=== PATIENT | female | born 1970 | race Caucasian/White ===

== ENCOUNTER 2020-04-12 17:38 | Emergency (ER) | payer BC, MEDICARE, SELFPAY ==
--- NOTE | 2020-04-12 17:41 | ECG_ITS ---
Test Reason : CHEST PAIN Blood Pressure : / mmHG Vent. Rate : 069 BPM Atrial Rate : 069 BPM P-R Int : 144 ms QRS Dur : 096 ms QT Int : 388 ms P-R-T Axes : 042 047 032 degrees QTc Int : 415 ms Normal sinus rhythm Normal ECG When compared with ECG of 13-OCT-2015 00:48, No significant change was found Referred By: Generic ED Physician Electronically Signed By:KULDIP PEDERSEN MD
[2020-04-12 18:00] VITALS: BP 133/65; PULSE 65; RESP 15; O2SAT 98
[2020-04-12 18:04] VITALS: PULSE 64; RESP 10; TEMP 37.1; BMI 28.3
--- NOTE | 2020-04-12 18:07 | XR_ITS ---
EXAMINATION: XR CHEST CLINICAL INFORMATION: Chest pain. COMPARISON: Chest x-ray 10/13/2015 TECHNIQUE: 2 views of the chest were obtained. FINDINGS: No significant abnormality is noted involving the heart, lungs, mediastinum, bony thorax or soft tissues. XR/XR chest 2V IMPRESSION: Unremarkable examination.
--- NOTE | 2020-04-12 18:10 | ED_ITS ---
HPI - Chest Pain General Chief Complaint: Chest Pain Stated Complaint: chest pain Time Seen by Provider: 04/12/20 17:54 History of Present Illness HPI narrative: 50-year-old female who presents to emergency department for evaluation of chest pain. The patient states she had gradual onset of chest pain approximately 1 week prior. She states that the pain came on while she was reading. She points to her sternum when asked to localize the chest pain. She states the pain is a constant, pressure-like pain which is 8/10 at its worst. She states that she has associated numbness in both hands. She also feels short of breath with exertion. She has also noted a left calf pain which she states started 1 week prior. The pain is a constant, cramping pain. She denies any swelling or lower extremities. She does not take any supplemental estrogens. She has not gone on any long trips. She states that she gets occasional headaches and occasionally feels lightheaded. She was concerned that the pain was persisting, therefore she came to the emergency department for an evaluation. Related Data Home Medications Medication Instructions Recorded Confirmed Adderall 04/12/20 Allergies Allergy/AdvReac Type Severity Reaction Status Date / Time bupropion [From Wellbutrin] Allergy Unknown hair loss Verified 03/14/20 13:06 hydromorphone [Dilaudid] AdvReac Unknown stomach Verified 03/14/20 13:06 upset Review of Systems Review of Systems: Yes all other systems are reviewed and are negative Constitutional: Constitutional: Reports as per HPI Eyes: Eyes: Reports as per HPI ENT: Reports as per HPI Cardiovascular: Cardiovascular: Reports as per HPI Respiratory: Respiratory: Reports as per HPI Gastrointestinal: Gastrointestinal: Reports as per HPI Genitourinary: Genitourinary: Reports as per HPI Musculoskeletal: Musculoskeletal: Reports as per HPI Integumentary/Breasts: Skin/Breast: Reports as per HPI Neurologic: Reports as per HPI and Reports Abnormal speech present Psychiatric: Psychiatric: Reports as per HPI Allergic/Immunologic: Allergic/Immunologic: Reports as per HPI PMFSH Past Medical History PMF Narrative: The patient denies tobacco use, she occasionally drinks alcohol, she denies drug use. Surgical History History of section History of hysteroscopy History of tonsillectomy History of tubal ligation Family History Family History Father No problems noted. Mother Heart disease Diabetes Hypertension Hyperlipidemia Maternal Aunt Stroke Family/Other CAD (coronary artery disease) Social History Social History Smoked in Last 30 Days: No Use of substances other than those prescribed or required for medical reasons: No Advance Directives: No Advance Directives Information Provided: Yes Physical Exam Vital Signs: Vital Signs: Last Vital Signs Temp 98.8 F 04/12/20 18:04 Pulse 61 04/12/20 20:09 Resp 11 L 04/12/20 20:09 BP 129/78 04/12/20 20:09 Pulse Ox 100 04/12/20 20:09 Body Mass Index 28.3 Const: General: cooperative, no acute distress, alert and awake Orientation/consciousness: oriented to person and oriented to place Limitations: no limitations HENMT: Head: Yes normal to inspection, Yes normocephalic and Yes atraumatic Ears: external ears normal General nose exam: Normal external nose present Face and sinus: Yes normal facial exam Mouth: Normal oral and palatal mucosa present Throat: Yes posterior oropharynx normal Eyes: General: appearance normal, both eyes and all related structures Periorbital: periorbital findings normal Eyelids: Yes eyelids normal Conjunctivae: conjunctivae normal Sclerae: sclerae normal Corneas: corneas normal Pupils: Equal, round and reactive pupils present Direct Ophthalmoscopy: normal light reflex Neck: Neck: Yes normal visual inspection and Yes supple Lymphatic: no lymphadenopathy noted Chest: Chest palpation & inspection: normal inspection of the chest and tenderness (Mid sternum and bilateral costochondral joints) Resp: Effort & Inspection: normal respiratory effort, abnormal respiratory pattern, no audible wheezes and no respiratory distress Auscultation: clear to auscultation bilaterally, no crackles, no rales, no rhonchi and no wheezes Cardio: Rate: regular rate Rhythm: regular rhythm Heart sounds: S1 normal heart sound present, S2 normal heart sound present and no murmurs GI: Inspection: No distended Palpation (GI): Soft to palpation, nontender, no guarding and No hepatosplenomegaly present Auscultation: normal bowel sounds : General: Yes no CVA tenderness Back/Spine/Pelvis: Back: no CVA tenderness Skin: General skin exam: no rashes or lesions noted Lesions: no lesions Rashes: no rashes Wounds: no wounds Neuro: General: oriented to person and oriented to place Cranial nerves: Ye s CN's II-XII intact bilaterally and Yes Equal, round and reactive pupils present Cognition (Neuro): normal cognition Speech: Abnormal speech present Motor exam (neuro): 5/5 motor strength present throughout Extrem: General: Yes normal to inspection, Yes full ROM, Yes no pedal edema and Yes no calf tenderness Psych: Appearance: grossly normal Mental Status: mental status grossly normal Speech and movement: Clear speech present Affect: normal affect Thought process: Normal thought process present Course Course Course Narrative: 50-year-old female who presents to the emergency department for evaluation of chest pain x1 week. The chest pain came on gradually and is located in the center of her chest. She does have chest wall tenderness on examination. She is also complaining of left calf pain with no significant findings on her left calf. Secondary to her leg pain/swelling. I did order a cardiac workup on this patient including a D-dimer and chest x-ray. 2022: The patient's laboratory evaluation was normal including a non elevated troponin and non elevated D-dimer. Chest x-ray was normal. The patient did get improvement with her IV Toradol. At this time, I suspect that her pain is secondary to costochondritis I did discuss this with her. She was advised to take ibuprofen 600 mg 3 times a day. She is advised follow up with the doctor in 2 days and return to the emergency department if her symptoms get worse or she develops any new symptoms that are concerning to her. MDM - Chest Pain Lab Data Result diagrams: 04/12/20 18:17 04/12/20 18:17 Labs: Lab Results 04/12/20 04/12/20 04/12/20 Range/Units 18:17 18:17 18:17 WBC 6.6 (4.8-10.8) X10*3/uL RBC 4.33 (4.20-5.50) X10*6/uL Hgb 12.7 (12.0-16.0) g/dl Hct 38.9 (37-47) % MCV 89.8 (80-98) fL MCH 29.3 (27.0-33.0) pg MCHC 32.6 (31.0-35.0) g/dl RDW 12.3 (11.0-16.0) % Plt Count 224 (160-400) X10*3/uL MPV 9.8 (9.4-12.3) fL Immature Gran % (Auto) 0.2 (0.0-0.4) % Neut % (Auto) 40.9 L (45-73) % Lymph % (Auto) 50.8 H (20-40) % [place] % (Auto) 5.3 (2-11) % Eos % (Auto) 2.3 (0-4) % Baso % (Auto) 0.5 (0-2) % Lymph # (Auto) 3.4 (1.2-4.9) X10*3/uL [place] # (Auto) 0.4 (0.1-1.2) X10*3/uL Eos # (Auto) 0.2 (0.0-0.4) X10*3/uL Baso # (Auto) 0.0 (0.0-0.2) X10*3/uL Abs Immat Gran (auto) 0.01 (0.00-0.03) X10*3/uL Absolute Neuts (auto) 2.7 (2.0-8.3) X10*3/uL Absolute Nucleated RBC 0.000 (0.0-0.012) X10*3/uL Nucleated RBC % (auto) 0.0 (0.0-0.2) /100WBC D-Dimer < 200 NG/ML Sodium 140 (135-145) mmol/L Potassium 4.1 (3.3-5.1) mmol/l Chloride 107 (96-108) mmol/L Carbon Dioxide 27 (22-29) mmol/L Anion Gap 10 L (12-20) BUN 10 (9-16) mg/dL Creatinine 0.76 (0.5-1.4) mg/dL Estim Creat Clear Calc 86.4 Estimated GFR > 60 Random Glucose 63 (60-115) mg/dL Calcium 8.5 (8.4-10.2) mg/dL Total Bilirubin 0.5 (0.0-1.0) mg/dL AST 14 (5-31) U/L ALT 16 (0-31) U/L Alkaline Phosphatase 59 (39-117) U/L Troponin I High Sens (<3.5-17.0) ng/L Total Protein 6.8 (6.5-8.0) g/dL Albumin 4.1 (3.5-5.0) g/dL Urine Test (NEGATIVE) 04/12/20 04/12/20 Range/Units 18:17 19:35 WBC (4.8-10.8) X10*3/uL RBC (4.20-5.50) X10*6/uL Hgb (12.0-16.0) g/dl Hct (37-47) % MCV (80-98) fL MCH (27.0-33.0) pg MCHC (31.0-35.0) g/dl RDW (11.0-16.0) % Plt Count (160-400) X10*3/uL MPV (9.4-12.3) fL Immature Gran % (Auto) (0.0-0.4) % Neut % (Auto) (45-73) % Lymph % (Auto) (20-40) % [place] % (Auto) (2-11) % Eos % (Auto) (0-4) % Baso % (Auto) (0-2) % Lymph # (Auto) (1.2-4.9) X10*3/uL [place] # (Auto) (0.1-1.2) X10*3/uL Eos # (Auto) (0.0-0.4) X10*3/uL Baso # (Auto) (0.0-0.2) X10*3/uL Abs Immat Gran (auto) (0.00-0.03) X10*3/uL Absolute Neuts (auto) (2.0-8.3) X10*3/uL Absolute Nucleated RBC (0.0-0.012) X10*3/uL Nucleated RBC % (auto) (0.0-0.2) /100WBC D-Dimer NG/ML Sodium (135-145) mmol/L Potassium (3.3-5.1) mmol/l Chloride (96-108) mmol/L Carbon Dioxide (22-29) mmol/L Anion Gap (12-20) BUN (9-16) mg/dL Creatinine (0.5-1.4) mg/dL Estim Creat Clear Calc Estimated GFR Random Glucose (60-115) mg/dL Calcium (8.4-10.2) mg/dL Total Bilirubin (0.0-1.0) mg/dL AST (5-31) U/L ALT (0-31) U/L Alkaline Phosphatase (39-117) U/L Troponin I High Sens < 3.5 (<3.5-17.0) ng/L Total Protein (6.5-8.0) g/dL Albumin (3.5-5.0) g/dL Urine Test NEGATIVE (NEGATIVE) ECG Data ECG #1: Attestation: I personally reviewed and interpreted this ECG as follows: ECG interpretation date: 04/12/20 ECG interpretation time: 17:45 Interpretation: Normal sinus rhythm rate of 69, normal ME, QRS and QTC intervals, inverted Q-wave in V1, no ST segment elevation or depression, no old EKG for comparison. No evidence for cardiac ischemia or injury. Discharge Plan Discharge Clinical Impression: Acute costochondritis Patient Disposition: Home, Self-Care Instructions: Costochondritis (ED) Additional Instructions: Your laboratory evaluation was normal. Your EKG was normal. Your chest x-ray was normal. At this time, I believe that your pain is caused by inflammation of the joints of your chest (costochondritis). Take ibuprofen 200 mg pills, 3 pills every 6 hours as needed for pain. Follow-up with your doctor in 2 days. Please return to the emergency department if your symptoms get worse or if you develop any symptoms that are concerning to you. Prescriptions: No Action Adderall RF: 0
[2020-04-12] MEDS: Ketorolac Tromethamine 30 MG/ML VIAL IVPUSH (18:23)
[2020-04-12 18:25] LABS: MANUAL DIFF FLAG NO
[2020-04-12 18:38] LABS: Basophils Percent Auto 0.5 % (0-2); Eosinophils Absolute Auto 0.2 X10*3/uL (0.0-0.4); Eosinophils Percent Auto 2.3 % (0-4); Hematocrit 38.9 % (37-47); Hemoglobin 12.7 g/dl (12.0-16.0); Imm Gran Abs Auto 0.01 X10*3/uL (0.00-0.03); Imm Gran Pct Auto 0.2 % (0.0-0.4); Lymphocytes Absolute Auto 3.4 X10*3/uL (1.2-4.9); Lymphocytes Percent Auto 50.8 % (20-40); Mean Corpuscular HGB Conc 32.6 g/dl (31.0-35.0); Mean Corpuscular Hemoglobin 29.3 pg (27.0-33.0); Mean Corpuscular Volume 89.8 fL (80-98); Mean Platelet Volume 9.8 fL (9.4-12.3); Monocytes Absolute Auto 0.4 X10*3/uL (0.1-1.2); Monocytes Percent Auto 5.3 % (2-11); Neutrophils Absolute Auto 2.7 X10*3/uL (2.0-8.3); Neutrophils Percent Auto 40.9 % (45-73); Platelet Count 224 X10*3/uL (160-400); Red Blood Count 4.33 X10*6/uL (4.20-5.50); Red Cell Distribution Width 12.3 % (11.0-16.0); White Blood Count 6.6 X10*3/uL (4.8-10.8)
[2020-04-12 18:53] LABS: D Dimer < 200 NG/ML
[2020-04-12 18:54] LABS: Alanine Aminotransferase 16 U/L (0-31); Albumin Level 4.1 g/dL (3.5-5.0); Alkaline Phosphatase 59 U/L (39-117); Anion Gap 10 (12-20); Aspartate Amino Transferase 14 U/L (5-31); Bilirubin Total 0.5 mg/dL (0.0-1.0); Blood Urea Nitrogen 10 mg/dL (9-16); Calcium 8.5 mg/dL (8.4-10.2); Carbon Dioxide 27 mmol/L (22-29); Chloride 107 mmol/L (96-108); Creatinine Clr Calc Pharmacy 86.4; Estimated Glomerular Filt Rate > 60; Glucose Random 63 mg/dL (60-115); Potassium 4.1 mmol/l (3.3-5.1); Sodium 140 mmol/L (135-145); Total Protein 6.8 g/dL (6.5-8.0)
[2020-04-12 18:59] LABS: Troponin-I High Sensitivity < 3.5 ng/L (<3.5-17.0)
[2020-04-12 20:02] LABS: UPreg QC Valid YES; Urine Pregnancy NEGATIVE (NEGATIVE)
[2020-04-12 20:09] VITALS: BP 129/78; PULSE 61; RESP 11; O2SAT 100
== END 2020-04-12 20:47 | disposition home or self-care (01) ==
PROVIDERS: Emergency Provider Emergency Medicine Emergency Medical Services
DX: M94.0 Chondrocostal junction syndrome [Tietze] (principal); R07.9 Chest pain, unspecified; R51.9 Headache, unspecified; Z79.899 Other long term (current) drug therapy
CPT/HCPCS: 36415; 71046; 80053; 81025; 84484; 85025; 85379; 93005; 96374; 99284; J1885

== ENCOUNTER 2020-09-08 07:21 | Outpatient (REF) | payer BC, MEDICARE, SELFPAY ==
--- NOTE | ~2020-09-08 | CT_ITS ---
EXAMINATION: CT HEAD WITHOUT CONTRAST CLINICAL INFORMATION: Headache and left-sided numbness COMPARISON: Previous head CT June 2014 TECHNIQUE: Contiguous axial imaging was performed from the skull base to vertex without intravenous administration of contrast. This CT examination was performed using dose optimization techniques as appropriate, variously including the following: *Automated exposure control *Adjustment of mA and/or kV according to patient size (this includes techniques or standardized protocols for targeted exams where dose is matched to indication/reason for exam; i.e. extremities or head) *Use of iterative reconstruction technique DLP: 719 mGy-cm FINDINGS: There is no evidence of acute intracranial hemorrhage or territorial infarction. No abnormal mass effect or midline shift is seen. Partida to white matter differentiation is well preserved. No extra-axial fluid collections are identified. The ventricles are normal in size. There is no abnormal attenuation within the brain parenchyma. The osseous structures and soft tissues are normal. The mastoid air cells and visualized portions of the paranasal sinuses are well aerated. CT/CT head/brain wo con IMPRESSION: Unremarkable exam.
== END 2020-09-08 07:22 | disposition home or self-care (01) ==
LOC: HO.CT 07:21
PROVIDERS: PCP Internal Medicine; Visit Provider Internal Medicine
DX: R51.9 Headache, unspecified (principal)
CPT/HCPCS: 70450

== ENCOUNTER → 2021-04-30 08:55 | Outpatient (REF) | payer BC, SELFPAY ==
--- NOTE | 2021-04-30 08:59 | CA_ITS ---
Acquisition Time: 2021-04-30 08:59:25 Total Exercise Time: 00:07:21 Test Indications: CP Medications: SEE CHART Protocol: KEVEN Max HR: 166 BPM 97% of Pred: 171 BPM Max BP: 170/076 mmHG Max Work Load: 9.0 METS Exercise stress test with exercise 7 min 21 sec of Keven protocol, without anginal symptoms, with isolated PACs and atrial cuplets, with normotensive response to exercise, without EKG changes meeting criteria for ischemia. In recovery there is downsloping ST lead III - nonspecific. Test reviewed with Dr Tellez. Referred By: Abran Hidalgo Overread By: CARROLL ORTIZ
[2021-04-30 11:01] LABS: Alanine Aminotransferase 16 U/L (0-31); Albumin Level 4.5 g/dL (3.5-5.0); Alkaline Phosphatase 79 U/L (39-117); Anion Gap 12 (12-20); Aspartate Amino Transferase 17 U/L (5-31); Bilirubin Direct < 0.2 mg/dL (0.0-0.5); Bilirubin Total 0.3 mg/dL (0.0-1.0); Blood Urea Nitrogen 11 mg/dL (9-16); C Reactive Protein 0.12 mg/dL (< or = 0.50); Calcium 9.7 mg/dL (8.4-10.2); Carbon Dioxide 25 mmol/L (22-29); Chloride 106 mmol/L (96-108); Estimated Glomerular Filt Rate > 60; Glucose Random 77 mg/dL (60-115); Potassium 4.3 mmol/L (3.3-5.1); Sodium 139 mmol/L (135-145); Total Protein 7.5 g/dL (6.5-8.0)
[2021-04-30 11:09] LABS: Rheumatoid Factor 16.2 IU/mL (<15.0)
[2021-04-30 11:27] LABS: Erythrocyte Sedimentation Rate 7 MM/HR (0-20)
[2021-05-03 00:20] LABS: Cyclic Citrullinated Peptide <16 UNITS
== END ==
LOC: HO.CARD 08:55
PROVIDERS: Visit Provider Physician Assistant
DX: R07.89 Other chest pain (principal); M25.50 Pain in unspecified joint
CPT/HCPCS: 36415; 80048; 80076; 85652; 86140; 86200; 86431; 93017

== ENCOUNTER 2021-05-03 13:33 | Outpatient (REF) | payer BC, SELFPAY ==
--- NOTE | ~2021-05-03 | US_ITS ---
EXAMINATION: US VENOUS ULTRASOUND WITH DOPPLER LOWER EXTREMITY, BILATERAL CLINICAL INFORMATION: Leg pain. Assess for occult DVT. COMPARISON: None TECHNIQUE: Ultrasound of the deep veins is performed from the hip to the calf with compression sonography and color and pulse Doppler assessment. Spectral analysis with color-flow imaging is performed. FINDINGS: RIGHT: There is normal venous compression and respiratory variation and augmented flow. The visualized common femoral vein, superficial femoral vein, profunda femoral vein, popliteal vein, and the trifurcation region shows no evidence of deep venous thrombosis. No popliteal fossa cyst. LEFT: There is normal venous compression and respiratory variation and augmented flow. The visualized common femoral vein, superficial femoral vein, profunda femoral vein, popliteal vein, and the trifurcation region shows no evidence of deep venous thrombosis. No popliteal fossa cyst. US/US venous duplex LE BI IMPRESSION: No DVT demonstrated in the bilateral lower extremity.
--- NOTE | ~2021-05-03 | US_ITS ---
EXAMINATION: US NONINVASIVE ASSESSMENT OF THE BILATERAL LOWER EXTREMITIES WITH ARTERIAL DUPLEX CLINICAL INFORMATION: Peripheral vascular disease COMPARISON: Lower extremity arterial duplex ultrasound on 06/11/2018 TECHNIQUE: Duplex Doppler techniques with waveform analysis and measurement of velocities in the common femoral, profunda femoris, superficial femoral, popliteal and tibial arteries were performed. The study was performed only at rest. FINDINGS: BILATERAL LOWER EXTREMITY DUPLEX ULTRASOUND: RIGHT LEG: Common femoral artery: 127 cm/s Diastolic flow reversal: Yes Profunda femoris artery: 143 cm/s. Diastolic flow reversal: Yes Superficial femoral artery (proximal): 111 cm/s Diastolic flow reversal: Yes Superficial femoral artery (mid): 139 cm/s. Diastolic flow reversal: Yes Superficial femoral artery (distal): 104 cm/s. Diastolic flow reversal: Yes Popliteal artery: 76 cm/s. Diastolic flow reversal: Yes Posterior tibial artery: 86 cm/s. Diastolic flow reversal: Yes LEFT LEG: Common femoral artery: 176 cm/s. Diastolic flow reversal: Yes Profunda femoris artery: 120 cm/s. Diastolic flow reversal: Yes Superficial femoral artery (proximal): 111 cm/s. Diastolic flow reversal: Yes Superficial femoral artery (mid): 119 cm/s. Diastolic flow reversal: Yes Superficial femoral artery (distal): 83 cm/s. Diastolic flow reversal: Yes Popliteal artery: 74 cm/s Diastolic flow reversal: Yes Posterior tibial artery: 90 cm/s Diastolic flow reversal: Yes US/US arterial duplex LE IMPRESSION: RIGHT LEG: No hemodynamically significant stenosis in the right lower extremity. LEFT LEG: No hemodynamically significant stenosis in the left lower extremity.
== END 2021-05-03 13:34 | disposition home or self-care (01) ==
LOC: HO.US 13:33
PROVIDERS: PCP Physician Assistant; Visit Provider Physician Assistant
DX: M79.604 Pain in right leg (principal); M79.605 Pain in left leg; I73.9 Peripheral vascular disease, unspecified
CPT/HCPCS: 93925; 93970

== ENCOUNTER 2021-08-29 13:55 | Outpatient (REF) | payer BC, SELFPAY ==
--- NOTE | ~2021-08-29 | MM_ITS ---
EXAMINATION: MM DIAGNOSTIC DIGITAL BREAST TOMOSYNTHESIS, BILATERAL US DIAGNOSTIC ULTRASOUND BREAST, BILATERAL CLINICAL INFORMATION: Palpable fullness on right, 2:00-3:00. Bilateral breast tenderness lateral aspect. No known family history breast cancer. The lifetime risk of breast cancer based on the Tyrer-Cuzick Model is 8%. COMPARISON: Mammography: 10/28/2016 TECHNIQUE: Digital breast tomosynthesis is performed in both the craniocaudal and mediolateral oblique views along with computer-aided detection (CAD). Synthesized 2D images are generated from the tomosynthesis. Additional magnification left CC x2 and magnification left ML views are provided. Ultrasound left breast is targeted 1:00 through 5:00 position and right breast is targeted 11:00 through 6:00 position. Grayscale imaging and color Doppler are performed without and with harmonics. FINDINGS: The breasts are heterogeneously dense, which may obscure small masses (ACR BI-RADS breast composition Category c). Parenchymal pattern is similar to prior exam and there is no interval mass or architectural abnormality. No skin thickening or coarsening of the Tyrone's ligament. The axilla are unremarkable. Skin contours are smooth. Left breast has new grouped calcifications mid upper outer quadrant 4-8 number which vary in size. No abnormal calcifications on right. Ultrasound bilateral breasts show no cystic or solid mass or architectural abnormality. No focal duct ectasia. No skin thickening or edema tracking in soft tissue planes. Results are discussed with the patient at time of visit. There is no imaging correlate for patient's palpable concern on right or for the mastodynia. Management options for left breast calcifications were discussed. Patient prefers stereotactic sampling. Preliminary results and recommendations called to office ([facility]) for LASHAY Sims on 08/29/2021. MM/MM tomosynthesis diagnostic BI IMPRESSION: Left: -Punctate grouped calcifications mid upper outer quadrant. -No imaging correlate for mastodynia. Unremarkable ultrasound. Right: -No mammographic evidence of malignancy or inflammatory changes. -Unremarkable ultrasound. ASSESSMENT: BI-RADS 4: Suspicious (subcategory 4A: Low suspicion for malignancy) RECOMMENDATION: 1. Stereotactic sampling left breast calcifications. 2. Patient's mastodynia and right palpable area should be managed based on the clinical impression. If clinically indicated, further evaluation may be considered with surgical consult. Decision to proceed with biopsy should be based on clinical grounds and degree of clinical concern. This patient's information was entered into a reminder system with a target due date for their next mammogram.
== END 2021-08-29 13:56 | disposition home or self-care (01) ==
LOC: HO.MAMMO 13:55
PROVIDERS: PCP Physician Assistant; Visit Provider Nurse Practitioner Family
DX: N64.4 Mastodynia (principal); N63.15 Unspecified lump in the right breast, overlapping quadrants
CPT/HCPCS: 76642; 77062; 77066

== ENCOUNTER 2021-09-03 08:51 | Outpatient (REF) | payer BC, SELFPAY ==
--- NOTE | ~2021-09-03 | MM_ITS ---
EXAMINATION: STEREOTACTIC TOMOSYNTHESIS-GUIDED VACUUM-ASSISTED BREAST BIOPSY, LEFT SPECIMEN RADIOGRAPH, LEFT POST PROCEDURE DIGITAL MAMMOGRAM, LEFT CLINICAL INFORMATION: Punctate grouped calcifications mid upper outer left breast for tissue sampling. COMPARISON: Mammography 08/29/2021, 10/28/2016. TECHNIQUE/PROCEDURE: Informed consent was obtained from the patient after discussion of the benefits, risks, and alternatives to biopsy today. Patient appeared to understand. Gave opportunity for questions. Patient signed consent form. BIOPSY TABLE: [employer] Affirm Prone Biopsy System. LESION: Punctate grouped calcifications mid upper outer left breast. LOCAL ANESTHESIA: 10 mL carbonated 1% lidocaine; 10 mL 1% lidocaine with epinephrine. DERMATOTOMY: Single skin evita dermatotomy performed. NEEDLE: [employer] Eviva 9-gauge vacuum assisted core biopsy device. APPROACH: craniocaudal. TARGETING: Combination of digital breast tomosynthesis and stereotactic digital mammography used for targeting. CORES: 7. CLIP: [employer] SecurMark Cylinder-shaped marker. SPECIMEN RADIOGRAPH: Specimen radiograph is taken in separate room using digital mammography. The index calcifications are in the excised cores. There are over 12 calcifications in the cores. POST PROCEDURE UNILATERAL DIGITAL MAMMOGRAM: The post biopsy mammogram is performed in separate room using separate digital mammography equipment from the biopsy procedure. CC and ML views are obtained. The breasts are heterogeneously dense, which may obscure small masses (breast composition category: c). The clip marker is in position. The calcifications are markedly decreased at the biopsy site and no longer clearly visualized. No gross hematoma. The patient tolerated the procedure well. No immediate complications. Home instructions reviewed with the patient. Final pathology results are pending. MM/MM stereotactic biopsy LT IMPRESSION: 1. Digital tomosynthesis-guided core biopsy left breast with clip placement. 2. Specimen radiograph taken and post procedure mammogram. There is satisfactory positioning of the biopsy clip. 3. Final pathology results pending. An addendum report will be issued.
[2021-09-03] MEDS: Lidocaine HCl 1 % 20 ML VIAL 10 ML SUBCUT (10:09)
[2021-09-03] MEDS: Sodium Bicarbonate 8.4% 50 MEQ/50 ML VIAL SUBCUT (10:12)
== END 2021-09-03 08:52 | disposition home or self-care (01) ==
LOC: HO.MAMMO 08:51
PROVIDERS: PCP Physician Assistant; Visit Provider Surgery
DX: R92.1 Mammographic calcification found on diagnostic imaging of breast (principal)
CPT/HCPCS: 19081; 88305; A4648

== ENCOUNTER → 2021-09-10 11:02 | Outpatient (BNVA) | payer BC, SELFPAY | PROVIDERS: PCP Physician Assistant; Referring Provider Physician Assistant; Visit Provider Surgery | DX: R92.1 Mammographic calcification found on diagnostic imaging of breast (principal) ==

== ENCOUNTER 2021-10-11 03:24 | Emergency (ER) | payer BC, SELFPAY ==
--- NOTE | 2021-10-11 | ECG_ITS ---
Test Reason : CHEST PAIN Blood Pressure : / mmHG Vent. Rate : 068 BPM Atrial Rate : 068 BPM P-R Int : 152 ms QRS Dur : 090 ms QT Int : 384 ms P-R-T Axes : 053 054 043 degrees QTc Int : 408 ms Normal sinus rhythm Normal ECG When compared with ECG of 12-APR-2020 17:45, No significant change was found Referred By: Generic ED Physician Electronically Signed By:KULDIP PEDERSEN MD
--- NOTE | ~2021-10-11 | XR_ITS ---
EXAMINATION: XR CHEST CLINICAL INFORMATION: Shortness of breath COMPARISON: 04/12/2020 TECHNIQUE: Frontal view of the chest was obtained. FINDINGS: The lungs are clear with no focal consolidation. No evidence of pneumothorax, pulmonary edema, or pleural effusions. The cardiomediastinal silhouette is unremarkable. No acute osseous findings. XR/XR chest 1V IMPRESSION: No acute cardiopulmonary findings.
[2021-10-11 03:31] VITALS: BP 163/53; PULSE 72; RESP 18; TEMP 37; O2SAT 97; BMI 30.1
[2021-10-11 03:50] LABS: MANUAL DIFF FLAG NO
[2021-10-11 03:51] LABS: Basophils Percent Auto 0.2 % (0-2); Eosinophils Percent Auto 0.2 % (0-4); Hemoglobin 12.3 g/dl (12.0-16.0); Imm Gran Abs Auto 0.01 X10*3/uL (0.00-0.03); Imm Gran Pct Auto 0.2 % (0.0-0.4); Lymphocytes Absolute Auto 1.5 X10*3/uL (1.2-4.9); Lymphocytes Percent Auto 29.6 % (20-40); Mean Corpuscular HGB Conc 33.2 g/dl (31.0-35.0); Mean Corpuscular Hemoglobin 28.9 pg (27.0-33.0); Mean Corpuscular Volume 87.1 fL (80.0-98.0); Monocytes Absolute Auto 0.5 X10*3/uL (0.1-1.2); Monocytes Percent Auto 9.4 % (2-11); Neutrophils Percent Auto 60.4 % (45-73); Platelet Count 166 X10*3/uL (160-400); Red Blood Count 4.25 X10*6/uL (4.20-5.50); Red Cell Distribution Width 13.2 % (11.0-16.0)
[2021-10-11 03:59] LABS: D Dimer High Sensitivity < 150 NG/ML
[2021-10-11 04:07] LABS: Alanine Aminotransferase 20 U/L (0-31); Albumin Level 3.8 g/dL (3.5-5.0); Alkaline Phosphatase 65 U/L (39-117); Anion Gap 13 (12-20); Aspartate Amino Transferase 17 U/L (5-31); Bilirubin Total 0.2 mg/dL (0.0-1.0); Blood Urea Nitrogen 11 mg/dL (9-16); Calcium 9.1 mg/dL (8.4-10.2); Carbon Dioxide 22 mmol/L (22-29); Chloride 106 mmol/L (96-108); Creatinine Clr Calc Pharmacy 89.2; Estimated Glomerular Filt Rate > 60; Glucose Random 86 mg/dL (60-115); Potassium 3.7 mmol/L (3.3-5.1); Sodium 137 mmol/L (135-145); Total Protein 6.4 g/dL (6.5-8.0)
[2021-10-11 04:12] LABS: Troponin-I High Sensitivity < 3.5 ng/L (<3.5-17.0)
--- NOTE | 2021-10-11 04:32 | ED_ITS ---
HPI - Chest Pain General Chief Complaint: Chest Pain Stated Complaint: Sob/Cough/Chest burning Time Seen by Provider: 10/11/21 04:32 Source: patient Mode of arrival: ambulatory Limitations: no limitations History of Present Illness HPI narrative: 51-year-old female came in for evaluation of shortness of breath and chest pain. Patient's symptoms started 3 days ago with fever of 100.7. Then patient started to have burning sensation in her chest with difficulty breathing. Patient with known history of asthma and pneumonia, patient feels similar to when she had pneumonia. Patient has been coughing with white sputum. No recent travel, no lower extremity swelling, no history of PE or DVT. Patient with known history of asthma. Related Data Home Medications Medication Instructions Recorded Confirmed cholecalciferol (vitamin D3) 50 50 mcg PO DAILY 08/15/21 09/03/21 mcg (2,000 unit) capsule Previous Rx's Medication Instructions Recorded albuterol sulfate 90 mcg/actuation 2 puff INHALATION Q4-6H PRN #8.5 g 01/12/21 aerosol inhaler fluticasone 250 mcg-salmeterol 50 1 inh INHALATION BID 30 Days #60 ea 01/16/21 mcg/dose blistr powdr for inhalation (Advair Diskus) budesonide-formoterol HFA 80 2 puff INHALATION BID 30 Days 01/22/21 mcg-4.5 mcg/actuation aerosol #10.2 g inhaler (Symbicort) diclofenac sodium 75 mg 75 mg PO BID PRN 15 Days #30 tab 04/12/21 tablet,delayed release Adderall XR 20 mg capsule,extended 20 mg PO DAILY 28 Days #28 cap NS 09/19/21 release (dextroamphetamine-amphetamine) lorazepam 0.5 mg tablet 0.5 mg PO BEDTIME PRN 7 Days #7 tab 10/09/21 albuterol sulfate 2.5 mg (3 mL) INHALATION Q4-6H PRN 10/11/21 #90 ml prednisone 20 mg tablet 20 mg PO BID #8 tab 10/11/21 Allergies Allergy/AdvReac Type Severity Reaction Status Date / Time bupropion [From Wellbutrin] Allergy Unknown hair loss Verified 09/10/21 11:09 hydromorphone [Dilaudid] AdvReac Unknown stomach Verified 09/10/21 11:09 upset Review of Systems Review of Systems: All other systems are reviewed and are negative Constitutional: Reports as per HPI and Reports no additional constitutional complaints Eyes: Reports as per HPI and Reports no additional eye complaints Reports system reviewed and no additional complaints, except as documented Cardiovascular: Reports as per HPI and Reports no additional cardiovascular complaints Respiratory: Reports as per HPI and Reports no additional respiratory complaints Gastrointestinal: Reports as per HPI and Reports no additional gastrointestinal complaints Genitourinary: Reports no additional female genitourinary complaints Musculoskeletal: Reports no additional musculoskeletal complaints Skin/Breast: Reports system reviewed and no additional complaints, except as docu Psychiatric: Reports no additional psychiatric complaints Endocrine: Reports no additional endocrine complaints Hematologic/Lymphatic: Reports no additional hematologic/lymphatic complaints Allergic/Immunologic: Reports no additional allergic/immunologic complaints Reports system reviewed and no additional complaints, except as documented and Reports Abnormal speech present [facility] Past Medical History Medical History Breast calcification, left Surgical History History of section History of hysteroscopy History of tonsillectomy History of tubal ligation Family History Family History Father No problems noted. Mother Heart disease Diabetes Hypertension Hyperlipidemia Maternal Aunt Stroke Family/Other CAD (coronary artery disease) Maternal Aunt Colon cancer Sister Cancer Social History Social History Housing: House Alcohol intake: never Patient Tobacco Use Status: Never used Tobacco Tobacco use type: Cigarette e-Cigarette/Vaping Use: Never Used Second Hand Smoke Exposure: No Advance Directives: No service: No Current occupational status: employed Current occupational exposures/hazards: No Cognitive needs: No Hearing needs: No Vision needs: Yes Physical Exam Vital Signs: Vital Signs: Last Vital Signs Temp 98.6 F 10/11/21 03:31 Pulse 74 10/11/21 04:51 Resp 18 10/11/21 04:51 BP 163/53 H 10/11/21 03:31 Pulse Ox 97 10/11/21 04:44 BMI result Body Mass Index 30.1 Vital signs have been reviewed as appeared to be correct. Blood pressure normal. Heart rate normal. Respiration rate normal. Temperature normal. Oxygen saturation normal. Appearance: Alert. Oriented X3. No acute distress. Head: Normal external exam. Normocephalic. Atraumatic. No Andrade signs noted. No raccoon eyes noted Eyes: PERRLA. EOMI. Conjunctiva and sclera normal. Eyelids normal. ENT: TM's Normal. Pharynx normal. Uvula midline. Moist mucous membranes. No trismus noted. No drooling noted. No muffled voice noted. Neck: Normal inspection. Neck supple. FROM. No adenopathy. Thyroid Normal. No meningeal signs. No neck mass noted. CVS: Normal heart rate and rhythm. Heart sound normal. No murmurs noted. Pulses normal throughout. Respiratory: No respiratory distress. Painless inspiration. Breath sounds normal. Bilateral diffuse expiratory wheezing with prolonged expiration. Chest nontender. No accessory muscle usage noted or decreased air movement noted. Abdomen: Soft and nontender. Bowel sounds normal in all 4 quadrants. No distention noted. No organomegaly noted. No visible injury noted. Back: No CVA tenderness. Full range of motion noted. Skin: Skin warm and dry. Normal skin color. Normal skin turgor. No rashes/lesions/lacerations noted. Extremities: No lower extremity edema. Extremities exhibit normal range of motion. Extremities nontender. Neuro: Oriented X 3. Cranial nerve exam: II-XII are grossly intact No motor deficit. No sensory deficit. Reflexes normal. Course Course Course Narrative: Assessment and plan. 51-year-old female came in with upper respiratory symptoms, physical exam revealed acute bronchitis. Symptoms started more than 72 hours ago patient will not benefit from Tamiflu will discharge on prednisone for 4 days and bronchodilator. MDM - Chest Pain Lab Data Attestation: I reviewed the patient's lab results. Result diagrams: 10/11/21 03:46 10/11/21 03:46 Labs: Lab Results 10/11/21 10/11/21 10/11/21 Range/Units 03:46 03:46 03:46 WBC 5.0 (4.8-10.8) X10*3/uL RBC 4.25 (4.20-5.50) X10*6/uL Hgb 12.3 (12.0-16.0) g/dl Hct 37.0 (37.0-47.0) % MCV 87.1 (80.0-98.0) fL MCH 28.9 (27.0-33.0) pg MCHC 33.2 (31.0-35.0) g/dl RDW 13.2 (11.0-16.0) % Plt Count 166 (160-400) X10*3/uL MPV 9.0 L (9.4-12.3) fL Immature Gran % (Auto) 0.2 (0.0-0.4) % Neut % (Auto) 60.4 (45-73) % Lymph % (Auto) 29.6 (20-40) % [place] % (Auto) 9.4 (2-11) % Eos % (Auto) 0.2 (0-4) % Baso % (Auto) 0.2 (0-2) % Lymph # (Auto) 1.5 (1.2-4.9) X10*3/uL [place] # (Auto) 0.5 (0.1-1.2) X10*3/uL Eos # (Auto) 0.0 (0.0-0.4) X10*3/uL Baso # (Auto) 0.0 (0.0-0.2) X10*3/uL Abs Immat Gran (auto) 0.01 (0.00-0.03) X10*3/uL Absolute Neuts (auto) 3.0 (2.0-8.3) x10*3/uL Absolute Nucleated RBC 0.000 (0.0-0.012) X10*3/uL Nucleated RBC % (auto) 0.0 (0.0-0.2) /100WBC D-Dimer High Sensitivty NG/ML Sodium 137 (135-145) mmol/L Potassium 3.7 (3.3-5.1) mmol/L Chloride 106 (96-108) mmol/L Carbon Dioxide 22 (22-29) mmol/L Anion Gap 13 (12-20) BUN 11 (9-16) mg/dL Creatinine 0.75 (0.5-1.4) mg/dL Estim Creat Clear Calc 89.2 Estimated GFR > 60 Random Glucose 86 (60-115) mg/dL Calcium 9.1 D (8.4-10.2) mg/dL Total Bilirubin 0.2 (0.0-1.0) mg/dL AST 17 (5-31) U/L ALT 20 (0-31) U/L Alkaline Phosphatase 65 (39-117) U/L Troponin I High Sens < 3.5 (<3.5-17.0) ng/L Total Protein 6.4 L (6.5-8.0) g/dL Albumin 3.8 (3.5-5.0) g/dL Influenza Type A (PCR) (Negative) Influenza Type B (PCR) (Negative) RSV RNA Qual (PCR) (Negative) SARS-CoV-2 RNA (RT-PCR) (Negative) 10/11/21 10/11/21 Range/Units 03:46 05:28 WBC (4.8-10.8) X10*3/uL RBC (4.20-5.50) X10*6/uL Hgb (12.0-16.0) g/dl Hct (37.0-47.0) % MCV (80.0-98.0) fL MCH (27.0-33.0) pg MCHC (31.0-35.0) g/dl RDW (11.0-16.0) % Plt Count (160-400) X10*3/uL MPV (9.4-12.3) fL Immature Gran % (Auto) (0.0-0.4) % Neut % (Auto) (45-73) % Lymph % (Auto) (20-40) % [place] % (Auto) (2-11) % Eos % (Auto) (0-4) % Baso % (Auto) (0-2) % Lymph # (Auto) (1.2-4.9) X10*3/uL [place] # (Auto) (0.1-1.2) X10*3/uL Eos # (Auto) (0.0-0.4) X10*3/uL Baso # (Auto) (0.0-0.2) X10*3/uL Abs Immat Gran (auto) (0.00-0.03) X10*3/uL Absolute Neuts (auto) (2.0-8.3) x10*3/uL Absolute Nucleated RBC (0.0-0.012) X10*3/uL Nucleated RBC % (auto) (0.0-0.2) /100WBC D-Dimer High Sensitivty < 150 NG/ML Sodium (135-145) mmol/L Potassium (3.3-5.1) mmol/L Chloride (96-108) mmol/L Carbon Dioxide (22-29) mmol/L Anion Gap (12-20) BUN (9-16) mg/dL Creatinine (0.5-1.4) mg/dL Estim Creat Clear Calc Estimated GFR Random Glucose (60-115) mg/dL Calcium (8.4-10.2) mg/dL Total Bilirubin (0.0-1.0) mg/dL AST (5-31) U/L ALT (0-31) U/L Alkaline Phosphatase (39-117) U/L Troponin I High Sens (<3.5-17.0) ng/L Total Protein (6.5-8.0) g/dL Albumin (3.5-5.0) g/dL Influenza Type A (PCR) POSITIVE A (Negative) Influenza Type B (PCR) NEGATIVE (Negative) RSV RNA Qual (PCR) NEGATIVE (Negative) SARS-CoV-2 RNA (RT-PCR) NEGATIVE (Negative) Imaging Data Chest x-ray: Attestation: I personally reviewed and interpreted this imaging study as follows: Radiologist's impression: No acute pulmonary disease. ECG Data ECG #1: Attestation: I personally reviewed and interpreted this ECG as follows: Interpretation: Normal sinus rhythm at 68 beats per minute, normal axis deviation, normal intervals. Discharge Plan Discharge Clinical Impression: Influenza A, Bronchitis Patient Disposition: Home, Self-Care Instructions: Influenza (ED) Prescriptions: New prednisone 20 mg tablet 20 mg PO BID Qty: 8 0RF albuterol sulfate 2.5 mg /3 mL (0.083 %) solution for nebulization 2.5 mg inhalation Q4-6H PRN (Reason: shortness of breath or wheezing) Qty: 90 0RF No Action albuterol sulfate 90 mcg/actuation HFA aerosol inhaler 2 puff inhalation Q4-6H PRN (Reason: bronchospasm) Qty: 8.5 0RF fluticasone propion-salmeterol [Advair Diskus] 250-50 mcg/dose blister with device 1 inh inhalation BID 30 Days Qty: 60 2RF budesonide-formoterol [Symbicort] 80-4.5 mcg/actuation HFA aerosol inhaler 2 puff inhalation BID 30 Days Qty: 10.2 2RF dextroamphetamine-amphetamine [Adderall XR] 20 mg capsule,extended release 24hr 20 mg PO DAILY 28 Days Qty: 28 0RF lorazepam 0.5 mg tablet 0.5 mg PO BEDTIME PRN (Reason: anxiety) 7 Days Qty: 7 0RF diclofenac sodium 75 mg tablet,delayed release (DR/EC) 75 mg PO BID PRN (Reason: pain) 15 Days Qty: 30 0RF cholecalciferol (vitamin D3) 50 mcg (2,000 unit) capsule 50 mcg PO DAILY 0RF Referrals: Abran Hidalgo PA-C [Primary Care Provider] - Stand Alone Forms: Work/School Release
[2021-10-11] MEDS: Magnesium Hydrox/Alum Hydrox 30 ML ORAL.SUSP PO (04:43)
[2021-10-11 04:44] VITALS: PULSE 75; RESP 14; O2SAT 97
[2021-10-11] MEDS: Albuterol/Iprat 2.5/0.5MG 3 ML AMPUL.NEB INHALE (04:48)
[2021-10-11] MEDS: Albuterol Sulfate (0.083%) 2.5 MG/3 ML VIAL.NEB 5 MG INHALE (04:49)
[2021-10-11 04:51] VITALS: PULSE 74; RESP 18; O2SAT 98
[2021-10-11 06:08] LABS: Influenza A PCR POSITIVE (Negative); Influenza B PCR NEGATIVE (Negative); Resp Syncy Virus RNA Qual PCR NEGATIVE (Negative); SARS COV2 PCR INHOUSE NEGATIVE (Negative)
== END 2021-10-11 06:27 | disposition home or self-care (01) ==
PROVIDERS: Emergency Provider Emergency Medicine; PCP Physician Assistant
DX: J10.1 Influenza due to other identified influenza virus with other respiratory manifestations (principal); J20.9 Acute bronchitis, unspecified; Z20.822 Contact with and (suspected) exposure to COVID-19
CPT/HCPCS: 0241U; 36415; 71045; 80053; 84484; 85025; 85379; 93005; 94640; 94644; 99284

== ENCOUNTER → 2021-12-31 06:57 | Outpatient (REF) | payer BC, SELFPAY ==
--- NOTE | 2021-12-31 07:00 | HM_ITS ---
Conclusion: 1. Patient was monitored for total period of 5 days and 1 hour 2. Baseline was normal sinus rhythm with average heart of 77 beats per minute 3. No significant pauses or bradycardia noted 4. 1 3 beat branden of nonsustained VT at 175 beats per minute 5. 7 short supraventricular runs, longest lasting 5 beats 6. Total of 1189 PVCs accounting for 0.18% of total beats account for occasional PVCs 7. Total of 777 PACs accounting for 0.12% total beats accounting for occasional PACs 8. Patient reported to events 1 of them correlated with isolated PVC MTDD
== END ==
LOC: HO.CARD 06:57
PROVIDERS: Visit Provider Nurse Practitioner Family
DX: R07.9 Chest pain, unspecified (principal); R00.2 Palpitations
CPT/HCPCS: 93242

== ENCOUNTER → 2022-03-25 08:19 | Outpatient (BNVA) | payer BC, SELFPAY | PROVIDERS: PCP Physician Assistant; Referring Provider Physician Assistant; Visit Provider Internal Medicine | DX: R07.2 Precordial pain (principal); R06.02 Shortness of breath; R00.2 Palpitations | CPT/HCPCS: 93005 ==

== ENCOUNTER → 2022-03-28 08:20 | Outpatient (REF) | payer BC, SELFPAY ==
--- NOTE | 2022-03-28 08:23 | CA_ITS ---
Transthoracic Echocardiogram Patient (Last, First, Middle): Yoly Palafox, Gender: Female Date of : 1970 Age: 52 Procedure Date: 03/28/2022 Procedure Type: Transthoracic Echocardiogram Location: OP Height: 162.56 cm Weight: 74.84 kg BSA: 1.80 m2 Heart Rate: 61 bpm BP: 125 / 80 mmHg Automotive Generator Repairer: [id number] Chen MD: Evelio Tellez MD Coal Dumping Equipment Operator: Ajit Brown MD Symptoms: R06.02 - Shortness of breath Study Quality: Adequate ECG Rhythm: Sinus Conclusions: - Essentially normal study Findings Left Ventricle Normal left ventricular size, thickness, and systolic function. The visually estimated ejection fraction is between 60-65%. Regional wall motion abnormalities can not be excluded due to suboptimal endocardial definition. Spectral Doppler is indicative of a normal filling pattern. Peak GLS is 17.3%, within normal limits. Right Ventricle Normal right ventricular cavity size and systolic function. Atria Both atria are normal in size. Aortic Valve Normal aortic valve structure and function. There is no aortic valve stenosis. There is no aortic valve regurgitation. Mitral Valve Normal mitral valve structure and function. There is trace mitral valve regurgitation. There is no mitral valve stenosis. Pulmonic Valve The pulmonic valve is likely normal. Tricuspid Valve Normal tricuspid valve structure. There is trace tricuspid valve regurgitation. The right ventricular systolic pressure is normal. The right ventricular systolic pressure is 16 mmHg. Normal right atrial pressure. There is no evidence of pulmonary hypertension. Great Vessels All visible segments of the aorta are normal in size. The pulmonary artery was not well visualized. Venous The inferior vena cava is normal in size and collapses greater than 50% with inspiration. Pericardium/Pleural There is no evidence of pericardial effusion. Prior Study Comparison No significant change compared to prior study dated: 07/06/2014. Measurements 2D Linear Measurements IVSd: 0.96 0.6-0.9/0.6-1.0 cm LVIDd: 4.37 3.9-5.3/4.2-5.9 cm LVIDd Index: 2.43 2.4-3.2/2.2-3.1 cm/m2 LVIDs: 2.64 2.0-3.6 cm LVPWd: 0.84 0.7-1.1 cm LA Diam: 3.00 2.7-3.8/3.0-4.0 cm LAIDs Index: 1.67 1.5-2.3 cm/m2 LV Mass: 157.96 67-162/88-224 g LV Mass Index: 87.76 43-95/49-115 g/m2 LVOT Diam: 1.70 3.0+(-)1.3 cm 2D Systolic Function EF 4C: 61.60 >55% EF 2C: 59.10 >55% EF BiP: 59.20 >55% Mitral Valve MV Pk E: 0.79 MV PK A: 0.74 MV Decel Time: 214.00 E/A: 1.10 E'Lateral: 9.20 E'Medial: 8.08 E/E' Med: 9.80 E/E' Lat: 8.60 PHT: 63.00 MVA PHT: 3.49 Decel [place]: 3.71 Aortic Valve AoV Pk [place]: 1.19 AoV Mn [place]: 0.84 AoV VTI: 0.25 AoV Pk Grad: 6.00 Aov Mn Grad: 3.00 MACKENZIE Cont.VTI: 1.79 LVOT LVOT Pk [place]: 0.97 LVOT Mn [place]: 0.67 LVOT VTI: 0.20 LVOT Pk Grad: 4.00 LVOT Mn Grad: 2.00 LVOT Diam: 1.70 LVOT Area: 2.27 Diastolic Function MV Pk E: 0.79 MV Pk A: 0.74 E/A: 1.10 E'Medial: 8.08 E/E' Med: 9.80 E' Laterial: 9.20 E/E' Lat: 8.60 Right Ventricle TAPSE (mm): 20.40 TVS' [place]: 11.30 Tricuspid Valve TR Pk [place]: 1.81 TR Pk Grad: 13.00 RA Press: 3.00 RVSP: 16.00 Great Vessels Aorta Sinus of Valsalva: 2.90 2.0-3.5 cm Ao Asc: 3.00 2.1-3.4 cm Pulmonary Valve PV Pk Ed[place]: 1.01 Peak PV Grad: 4.00 Updated in Other Vendor System with Status of Final Ajit Brown MD electronically signed on 03/29/2022 4:29:25 PM with status of Final
== END ==
LOC: HO.CARD 08:20
PROVIDERS: Visit Provider Internal Medicine
DX: R06.02 Shortness of breath (principal)
CPT/HCPCS: 93306; 93356

== ENCOUNTER 2022-07-08 11:22 | Day surgery (SDC) | payer BC, SELFPAY ==
[2022-06-28 10:12] VITALS: BMI 30.1
[2022-07-08 11:36] VITALS: BP 123/73; PULSE 75; RESP 18; TEMP 36.4; O2SAT 97
--- NOTE | 2022-07-08 11:49 | PC.NURSE ---
pt with frequent npc & nasal stuffiness. took updraft at home. covid home test negative 07/07/22. Dr. Perez notified. no new orders. hob elevated. lungs clear bilat sat 97% on room air. denies sob.
--- NOTE | 2022-07-08 12:07 | MHC.SHP ---
Pre-Procedural Eval Section A Date of Service: 07/08/22 The patient is an INPATIENT: No The History & Physical has been completed within 30 days and I have reviewed it.: No Section B Chief Complaint: constipation,screening,benign neoplasm, Relevant Family History (Specify if Yes): Yes Relevant Social History: None Present Medications: see Short Stay Collaborative assessment Medical History: Significant History (Breast calcification, left Breast lump Breast lump on right side at 3 o'clock position Breast pain, left) History of Previous Operations: Relevant previous surgery/procedure and date(s) (History of section History of colonoscopy History of hysteroscopy History of tonsillectomy History of tubal ligation) Allergies: Allergies Allergy/AdvReac Type Severity Reaction Status Date / Time hydromorphone [Dilaudid] Allergy Intermediate stomach Verified 06/28/22 10:31 upset, itching bupropion [From Wellbutrin] AdvReac Intermediate hair loss Verified 06/28/22 10:03 Review of Systems Sugical H&P ROS: Negative: Constitution, Cardiovascular, Respiratory and Gastrointestinal Exam Surgical H&P Exam: Normal: Heart, Normal: Lungs, Normal: Extremities and Normal: Abdomen Plan Diagnosis/Plan: Unchanged I have reviewed the history and physical and performed a pertinent physical examination on my patient. No changes have occurred unless specified. Time Spent With Patient Time: Total time managing care of this patient today ____ minutes.
--- NOTE | 2022-07-08 12:25 | HO.ANESPROP2 ---
HPI - Anesthesia Eval Consult details Narrative: colonoscopy PMFSH Active Problems Active Problems: All Active Problems (Updated 06/28/22 @ 10:11 by Bebe Tatum, RN) Moderate persistent asthma (Acute) ADHD (attention deficit hyperactivity disorder) (Acute) Frontal headache (Acute) Grief reaction (Acute) Polyarthralgia (Acute) TMJ (dislocation of temporomandibular joint) (Acute) Atypical chest pain (Acute) Heart palpitations (Acute) PVD (peripheral vascular disease) with claudication (Acute) Rheumatoid factor positive (Acute) SOLIS (generalized anxiety disorder) (Acute) Screening for colon cancer (Acute) Adult general medical exam (Acute) Intermittent chest pain (Acute) Tubular adenoma (Acute) Chronic constipation (Acute) Precordial chest pain (Acute) SOB (shortness of breath) (Acute) Breast lump on right side at 3 o'clock position (Acute) Breast calcification, left (Acute) Past Medical History Medical History (Updated 06/28/22 @ 10:11 by Bebe Tatum RN) Anxiety Arthritis Asthma Breast calcification, left Breast lump Breast lump on right side at 3 o'clock position Breast pain, left Low back pain Family History Family History Father No problems noted. Mother Heart disease Diabetes Hypertension Hyperlipidemia Maternal Aunt Stroke Family/Other CAD (coronary artery disease) Maternal Aunt Colon cancer Sister Cancer Family history of problems with anesthesia: No Surgical History Surgical History (Updated 06/28/22 @ 10:09 by Bebe Tatum RN) H/O dilation and curettage History of section History of colonoscopy History of hysteroscopy History of tonsillectomy History of tubal ligation History of Problems with Anesthesia: No Social History Social History Housing: House Are you a primary wound care center consultant to a significant other at home: No Do you presently have visiting nurse or other home services: No Alcohol intake: never Patient Tobacco Use Status: Never used Tobacco Tobacco use type: Cigarette e-Cigarette/Vaping Use: Never Used Second Hand Smoke Exposure: No Use of substances other than those prescribed or required for medical reasons: No Have you been hit, kicked, punched, or otherwise hurt by someone within the past year? If so, by whom?: No Are you DNR?: No Advance Directives: No Advance Directives Information Provided: Yes Advance Directives on File: No Recently lost weight without trying: No Nutrition Risks: No Nutritional Risk Patient : No FDLMP: 2000 : No Poor oral hygiene: No service: No Current occupational status: employed Current occupational exposures/hazards: No Cognitive needs: No Hearing needs: No Vision needs: Yes Meds Allergies Allergy/AdvReac Type Severity Reaction Status Date / Time hydromorphone [Dilaudid] Allergy Intermediate stomach Verified 06/28/22 10:31 upset, itching bupropion [From Wellbutrin] AdvReac Intermediate hair loss Verified 06/28/22 10:03 Active Medications: Current Medications Lactated Ringer's (Lr) 1,000 mls @ 50 mls/hr IVCONT .Q20H [facility] Home Medications Medication Instructions Recorded Confirmed Last Taken Type cholecalciferol (vitamin D3) 50 50 mcg PO DAILY 08/15/21 06/28/22 Unknown History mcg (2,000 unit) capsule multivitamin 1 tab PO DAILY 06/28/22 06/28/22 Unknown History zinc 06/28/22 06/28/22 Unknown History Exam Exam Date and Time: July 08, 2022 1225 Height,Weight and Vital Signs: Height 5 ft 4 in Weight 79.379 kg Last Vital Signs Temp 97.5 F 07/08/22 11:36 Pulse 75 07/08/22 11:36 Resp 18 07/08/22 11:36 BP 123/73 07/08/22 11:36 Pulse Ox 97 07/08/22 11:36 O2 Del Method 07/08/22 11:36 Airway Mallampati Class: II TM Dist: >3cm Neck ROM: Limited Heart: rrr Lungs: cta Assessment and Plan Assessment Anesthesia Assessment: Anesthesia Plan Discussed, Smoking Cess. Discussed and Chart Reviewed Final Anesthetic Review Family History of Problems with Anesthesia: No History of Problems with Anesthesia: No NPO: Yes ASA Class: III Final Preanesthetic Review: No Changes in Pt Med Stat, Meds/Allgs Chart Reviewed, Consent Obtained/Reviewed and Anes Risks/Benef Reviewed Patient Risk: Intermediate Procedure Risk: Low Anesthetic Plan Anesthetic Plan: MAC: and Agree w/ Assess. and Plan Disposition: Standard PACU
--- NOTE | 2022-07-08 12:40 | PC.NURSE ---
notified Dr. Perez of persistent bronchospastic cough and expiratory wheeze (faint on right base) order for udn received and vaibhav tafoya, udn given.
[2022-07-08] MEDS: Albuterol Sulfate (0.083%) 2.5 MG/3 ML VIAL.NEB INHALE (12:55)
[2022-07-08 12:57] VITALS: RESP 16; O2SAT 98
--- NOTE | 2022-07-08 13:01 | PC.NURSE ---
s/p udn by r.t., pt with improved breathing, loose npc. lungs clear bilat. sat 97-98% on r.a. up to bathroom independently, denied sob.
--- NOTE | 2022-07-08 13:05 | PC.NURSE ---
pt states breathing treatment helped a lot , loosened secretions. enc'd at home updrafts, claritin, warmed fluids. also reinforced sx of covid and call 911 with any breathing difficuties.
--- NOTE | 2022-07-08 13:59 | PM.OP ---
Brief Operative Note Date of Service: 07/08/22 Pre-op diagnosis: Colon cancer screening, follow-up of colon polyps Post-op diagnosis: other (Diverticulosis, hemorrhoids) Procedure: COLONOSCOPY TILL CECUM Surgeon: Brenda Muñiz MD Anesthesia: MAC Was an Hydro Excavation Operator used for this Procedure?: Yes Hydro Excavation Operator: Moriah Russ Estimated blood loss (mL): 0 Pathology: none sent Condition: stable Disposition: PACU
--- NOTE | 2022-07-08 14:00 | W.PM.OPN ---
Operative Note Operative Note Date of Service: 07/08/22 Narrative: Pre-op diagnosis: Colon cancer screening, follow-up of colon polyps Post-op diagnosis:?other (Diverticulosis, hemorrhoids) Surgeon: Brenda Muñiz MD Anesthesia:?MAC COLONOSCOPY TILL CECUM Consent: Indications for the procedure and potential complications of bleeding, perforation, reaction to medications and missed diagnosis were discussed with the patient and informed consent was obtained. Instrument: Olympus PCF H 190 L variable stiffness pediatric colonoscope Monitoring: Vital signs and clinical assessment, intermittent blood pressure monitoring, continuous EKG monitoring, Pulse oximetry and Carbon Dioxide monitoring were done throughout the procedure. Colon withdrawl time was 20 minutes. Procedure: The patient was placed in the left lateral decubitis position and pre-procedure medications were administered. After a digital rectal examination of the ano-rectum, the video colonoscope was inserted into the rectum and advanced through the colon to the cecum. The colonoscope was slowly withdrawn in a retrograde panoramic fashion and the colon mucosa was carefully examined including a retroflexed view of the rectum. Findings and interventions are described below. Procedure Difficulty: Without difficulty Findings: Terminal Ileum: Not evaluated Cecum: Examined carefully and appeared normal - no residual or recurrent polyp seen Ascending Colon: Normal Transverse Colon: Normal Descending Colon: Moderate diverticulosis Sigmoid Colon: Moderate diverticulosis Rectum: Normal Ano-rectum: Small internal hemorrhoids Colon preparation: Good after some irrigation Impression and Post Procedure Diagnosis: Colonoscopy Findings: No polyps were detected Moderate diverticulosis seen in the left colon Small hemorrhoids on retroflexed exam. Plan: Repeat Colonoscopy in 5 years (due to a hx of adenomatous colon polyps on colonoscopy in 2018). Above findings were reviewed with the patient and diverticulosis handout was given in the discharge area
[2022-07-08 14:06] VITALS: BP 131/82; PULSE 91; RESP 20; TEMP 36.4; O2SAT 98
[2022-07-08 14:21] VITALS: BP 121/75; PULSE 77; RESP 18; TEMP 36.6; O2SAT 98
[2022-07-08 14:36] VITALS: BP 126/61; PULSE 83; RESP 16; TEMP 36.8; O2SAT 97
== END 2022-07-08 15:50 | disposition home or self-care (01) ==
PROVIDERS: Visit Provider Internal Medicine Gastroenterology
PROC: 0DJD8ZZ Inspection of Lower Intestinal Tract, Via Natural or Artificial Opening Endoscopic (ICD-10-PCS; CPT 45378; principal; 2022-07-08 13:10)
DX: Z12.11 Encounter for screening for malignant neoplasm of colon (principal); Z86.010 Personal history of colon polyps; K59.09 Other constipation; K57.30 Diverticulosis of large intestine without perforation or abscess without bleeding; K64.8 Other hemorrhoids; I73.9 Peripheral vascular disease, unspecified; J45.20 Mild intermittent asthma, uncomplicated; Z79.51 Long term (current) use of inhaled steroids; Z79.899 Other long term (current) drug therapy; Z88.8 Allergy status to other drugs, medicaments and biological substances
CPT/HCPCS: 45378; 94640; J2250

== ENCOUNTER 2023-02-17 10:13 | Outpatient (AMB) | payer BC, SELFPAY ==
--- NOTE | 2023-02-17 10:35 | MHC.PC.OV ---
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 Accompanied by: Self / Same As Patient Allergies hydromorphone [Dilaudid] Allergy (Intermediate, Verified 02/17/23 10:51) stomach upset, itching bupropion [From Wellbutrin] Adverse Reaction (Intermediate, Verified 02/17/23 10:51) hair loss Medication List - Last Reconciled 02/17/23 by Abran Hidalgo PA-C Adderall XR 20 mg (dextroamphetamine-amphetamine) 20 mg PO DAILY 28 days NS albuterol sulfate 2.5 mg (3 mL) inhalation Q4-6H PRN albuterol sulfate 90 mcg/actuation 2 puffs inhalation Q4-6H PRN budesonide-formoterol 80-4.5 mcg/actuation (Symbicort) 2 puffs inhalation BID 30 days cholecalciferol (vitamin D3) 50 mcg PO DAILY fluticasone propion-salmeterol 250-50 mcg/dose (Advair Diskus) 1 inh inhalation BID 30 days lorazepam 0.5 mg PO BEDTIME PRN 7 days multivitamin 1 tab PO DAILY polyethylene glycol 3350 (Miralax) 17 grams PO DAILY polyethylene glycol 3350 (Miralax) 17 grams PO DAILY [zinc ] Tobacco use date assessed: 02/17/23 Dental Screening Dental Screen Date: 02/17/23 Did you have a dental visit in the last 12 months?: Yes Did you have a dental problem in the last 6 months where you did not have access to dental care?: No Was dental information given to patient?: Patient has dentist HPI med Review HPI Details Patient is a 53-year-old female here today for a follow-up visit. Patient has a past medical history significant for moderate persistent asthma, ADHD, generalized anxiety disorder. .. ADHD: Was on Adderall 20 mg extended release in the past with good effect on her attention and focus. She has stop Adderall medication for many months was found to be struggling in her job on her attention focus. Not able to keep focus on 1 task. She would like to return back to using Adderall or alternative medication to help her with her attention focus. Dysphagia: Also reports she has been and epigastric discomfort and pain after she eats and before lying down the bed. She reports when she has solid foods she feels her epigastric discomfort gets worse. Has had history of H pylori. PLAN: Will order barium swallow to evaluate for esophageal stricture and or hiatal hernia. Will refer to gastroenterology for possible endoscopy. Advised on [id number] antacid medication. .. Anxiety: Has been stable. Has not had to use any anxiety medication. .. Moderate persistent asthma: Has been fairly stable. Seldomly using her rescue inhalers. Denies any recent exacerbations in her asthma symptoms. [facility] Medical History (Updated 02/18/23 @ 07:27 by Abran Hidlago PA-C) Chronic constipation TMJ (dislocation of temporomandibular joint) Low back pain Arthritis Anxiety Asthma Breast calcification, left Breast pain, left Breast lump Breast lump on right side at 3 o'clock position Surgical History H/O dilation and curettage History of colonoscopy History of hysteroscopy History of tubal ligation History of tonsillectomy History of section Family History Father No problems noted. Mother Heart disease Diabetes Hypertension Hyperlipidemia Maternal Aunt Stroke Family/Other CAD (coronary artery disease) Maternal Aunt Colon cancer Sister Cancer Social History Housing: House Are you a primary health careers instructor to a significant other at home: No Do you presently have visiting nurse or other home services: No Alcohol intake: never Patient Tobacco Use Status: Never used Tobacco Tobacco use type: Cigarette e-Cigarette/Vaping Use: Never Used Second Hand Smoke Exposure: No service: No Current occupational status: employed Current occupational exposures/hazards: No Cognitive needs: No Hearing needs: No Vision needs: Yes Female Reproductive History Menstrual Age of Menarche: 13 Questionnaire PHQ-9 Over the last 2 weeks, how often have you been bothered by any of the following problems? 1. Little interest or pleasure in doing things: not at all 2. Feeling down, depressed, or hopeless: not at all 3. Trouble falling or staying asleep, or sleeping too much: not at all 4. Feeling tired or having little energy: not at all 5. Poor appetite or overeating: not at all 6. Feeling bad about yourself - or that you are a failure or have let yourself or your family down: not at all 7. Trouble concentrating on things, such as reading the newspaper or watching television: not at all 8. Moving or speaking so slowly that other people could have noticed. Or the opposite - being so fidgety or restless that you have been moving around a lot more than usual: not at all 9. Thoughts that you would be better off or of hurting yourself in some way: not at all Total score: 0 Depression Screening Interpretation: Negative Depression Screening Done: Yes 45266 - PHQ-9 Billing: Yes Source: Developed by Drs. Juan Marroquin, Zoë Barker, Carlos Mast and colleagues, with an educational geoffrey from [employer]. Thrive Questionnaire Date Thrive assessed: 02/17/23 I am a: Patient What is your living situation today?: I have a steady place to live Within the past 12 months, did the food you bought not last and you didn't have the money to get more?: Never true Within the past 12 months, did you worry whether your food would run out before you got money to buy more?: Never true Do you have trouble paying for medicines?: No Do you have trouble getting transportation to medical appointments?: No Do you have trouble paying your heating and electricity bill?: No Do you have trouble taking care of your child, family member or friend?: No Do you have trouble with day-to-day activities such as bathing, preparing meals, shopping, managing finances, etc.?: No Are you currently unemployed and looking for a job?: No Are you interested in more education?: No Please select the resources that you would like help with: None Currently or been in a relationship where the following occur: no concerns reported AUDIT C Alcohol Use Questionnaire (AUDIT-C) 1. How often do you have a drink containing alcohol?: Never 3. How often do you have six or more drinks on one occasion?: Never Total Score: 0 SOLIS-7 AMB Questionnaire SOLIS-7 Date SOLIS - 7 assessed: 02/17/23 Feeling nervous, anxious, or on edge: 0 = Not at all Not being able to stop or control worryin = Not at all Worrying too much about different things: 0 = Not at all Trouble relaxin = Not at all Being so restless that it is hard to sit still: 0 = Not at all Becoming easily annoyed or irritable: 0 = Not at all Feeling afraid as if something awful might happen: 0 = Not at all Total SOLIS-7 score (0-4 normal; 5-9 mild; 10-14 moderate; 15-21 severe): 0 Source: Developed by Drs. Juan Marroquin, Zoë Barker, Carlos Mast and colleagues, with an educational geoffrey from [employer]. SOLIS-7 Assessment Billing SOLIS-7 Assessment Tool: SOLIS-7 Assessment 24822 Review of Systems Const Denies headache(s) Eyes Denies loss of vision ENT Denies vertigo, Denies dizziness, Denies headache(s) and Denies sore throat Card Denies chest pain, Denies leg edema and Denies lightheadedness Resp Denies cough, Denies hemoptysis and Denies wheezing GI Denies abdominal pain, Denies melena, Denies constipation, Denies diarrhea and Denies vomiting Denies urinary frequency, Denies dysuria and Denies urinary urgency Musc Denies arthralgias, Denies joint swelling, Denies numbness and Denies tingling Neuro Denies Abnormal speech present, Denies behavioral changes, Denies vertigo, Denies dizziness, Denies headache(s), Denies loss of vision, Denies memory loss, Denies numbness and Denies tingling Psych Denies anxiety, Denies behavioral changes, Denies depression, Denies memory loss and Denies panic attacks Ghanshyam/Lymph Denies easy bleeding and Denies easy bruising Aller/Immun Denies wheezing Physical exam (Primary Care) Vital Signs: Last Vital Signs Pulse 60 02/17/23 10:39 Resp 17 02/17/23 10:39 BP 116/72 02/17/23 10:39 Pulse Ox 98 02/17/23 10:39 Oxygen Delivery Method Room Air 02/17/23 10:39 BMI result Body Mass Index 32.3 BMI Assessment/Plan discussion: High Tobacco/Smoking Status: Tobacco use Status Tobacco use date assessed 02/17/23 02/17/23 10:49 Patient Tobacco Use Status Never used Tobacco 02/17/23 10:36 Tobacco use type Cigarette 02/17/23 10:36 e-Cigarette/Vaping Use Never Used 02/17/23 10:36 PHQ-9: PHQ-9 Score PHQ-9: Total score 0 02/17/23 13:20 Depression Screening Interpretation: Negative Thrive Assessment: Date of Thrive Assessment Date Thrive assessed 02/17/23 02/17/23 10:52 Currently or been in a relationship where the following occur: no concerns reported Const Other: Obese General: healthy appearing, no acute distress, alert and awake Nutritional Appearance: well nourished Orientation/consciousness: oriented to person, oriented to place and oriented to time HENMT Ears: TM's normal bilaterally General nose exam: Normal nasal mucous membranes and turbinates present Eyes Conjunctivae: conjunctivae normal Sclerae: sclerae normal Pupils: Equal, round and reactive pupils present Neck Neck: Yes no lymphadenopathy and Yes no JVD Thyroid: Thyroid normal Carotids: no bruits Resp Effort & Inspection: normal respiratory effort and not tachypneic Auscultation: no crackles, no rales, no rhonchi and no wheezes Cardio Rate: regular rate Rhythm: regular rhythm Heart sounds: no murmurs and normal S1 and S2 GI Palpation (GI): Soft to palpation, nontender, no hepatomegaly and no splenomegaly Auscultation: normal bowel sounds Skin General skin exam: no rashes or lesions noted and dry skin Neuro General: oriented to person, oriented to place and oriented to time Cranial nerves: Yes Equal, round and reactive pupils present Speech: No Abnormal speech present Gait exam (Neuro): Normal gait present Motor exam (neuro): no tremor noted Extrem Right upper extremity: full ROM Left upper extremity: full ROM Right lower extremity: full ROM; no edema Left lower extremity: full ROM; no edema Psych Mental Status: mental status grossly normal Speech and movement: Normal speech and movement present Affect: normal affect Attitude: cooperative Thought process: Normal thought process present Assessment and Plan Assessment & Plan (1) ADHD (attention deficit hyperactivity disorder): Code(s): F90.9 - Attention-deficit hyperactivity disorder, unspecified type Qualifiers: Attention deficit-hyperactivity disorder type: predominantly inattentive Qualified Code(s): F90.0 - Attention-deficit hyperactivity disorder, predominantly inattentive type Plan: As per HPI patient Patient is willing to try a non stimulant medication to treat her ADHD. Will Start Strattera 40 mg and up titrate per response, (2) SOLIS (generalized anxiety disorder): Code(s): F41.1 - Generalized anxiety disorder Plan: Patient reports her anxiety has been much better. Has not had to use any anxiety medication. (3) Rheumatoid factor positive: Comment: : RF=16 Code(s): R76.8 - Other specified abnormal immunological findings in serum Plan: She does report continuing to have polyarthralgia. She does not use any [id number]-ihx-rwipbop anti arthritic medication. She is willing to try meloxicam 15 mg on a p.r.n. basis for arthritic pain. She would like to hold off on seeing a field research associate for now. (4) Screening for diabetes mellitus (DM): Code(s): Z13.1 - Encounter for screening for diabetes mellitus (5) GERD (gastroesophageal reflux disease): Code(s): K21.9 - Gastro-esophageal reflux disease without esophagitis Qualifiers: Esophagitis presence: without esophagitis Qualified Code(s): K21.9 - Gastro-esophageal reflux disease without esophagitis Plan: Reports as of late having epigastric discomfort after she eats lying down for bed at night. Has had history H pylori. Advised on barium swallow to evaluate for esophageal stricture rings. She would like to get endoscopy done for evaluation as well. (6) Obese: Code(s): E66.9 - Obesity, unspecified Qualifiers: Body mass index: BMI 32.0-32.9 Obesity classification: adult class 1 (BMI 30 - 34.9) Obesity type: due to excess calories Serious obesity comorbidity presence: without serious comorbidity Qualified Code(s): E66.09 - Other obesity due to excess calories; Z68.32 - Body mass index [BMI] 32.0-32.9, adult Plan: Patient does understand her BMI is over 30 will work on being more physically active and adapting to better eating habits to reduce her weight. Orders: Orders Anti DNA DS Antibody 02/17/23 R76.8 - Other specified abnormal immunological findings in serum Complete Blood Count no Diff 02/17/23 J45.40 - Moderate persistent asthma, uncomplicated Comprehensive [place]. Panel Fast 02/17/23 Z13.1 - Encounter for screening for diabetes mellitus Rheumatoid Factor 02/17/23 R76.8 - Other specified abnormal immunological findings in serum MARLEE Reflex Titer and Pattern 02/17/23 R76.8 - Other specified abnormal immunological findings in serum Cyclic Citrullinated Peptide 02/17/23 R76.8 - Other specified abnormal immunological findings in serum FL barium swallow 02/17/23 K21.9 - Gastro-esophageal reflux disease without esophagitis Referrals Gastroenterology Referral K21.9 - Gastro-esophageal reflux disease without esophagitis Medications: New atomoxetine (Strattera) 40 mg PO DAILY 21 days 21 caps 0RF F90.0 - Attention-deficit hyperactivity disorder, predominantly inattentive type meloxicam 15 mg PO DAILY 15 days PRN 15 tabs 1RF pain M25.50 - Pain in unspecified joint Refilled fluticasone propion-salmeterol 250-50 mcg/dose (Advair Diskus) 1 inh inhalation BID 30 days 60 ea 2RF J45.40 - Moderate persistent asthma, uncomplicated polyethylene glycol 3350 (Miralax) 17 grams PO DAILY 510 grams 2RF albuterol sulfate 90 mcg/actuation 2 puffs inhalation Q4-6H PRN 8.5 grams 0RF bronchospasm budesonide-formoterol 80-4.5 mcg/actuation (Symbicort) 2 puffs inhalation BID 30 days 10.2 grams 3RF J45.40 - Moderate persistent asthma, uncomplicated Discontinued lorazepam Discontinued Reason: Doctor's Order 0.5 mg PO BEDTIME 7 days PRN 7 tabs 0RF anxiety F43.21 - Adjustment disorder with depressed mood On Hold Adderall XR 20 mg (dextroamphetamine-amphetamine) Hold Comment: Doctor's Order 20 mg PO DAILY 28 days 28 caps 0RF NS F90.0 - Attention-deficit hyperactivity disorder, predominantly inattentive type Coding Level of Care Code Est Pt Level 4 (45165) Diagnoses Attention deficit hyperactivity disorder (ADHD), predominantly inattentive type F90.0 Attention deficit-hyperactivity disorder type: predominantly inattentive SOLIS (generalized anxiety disorder) F41.1 Rheumatoid factor positive R76.8 Screening for diabetes mellitus (DM) Z13.1 Gastroesophageal reflux disease without esophagitis K21.9 Esophagitis presence: without esophagitis Class 1 obesity due to excess calories without serious comorbidity with body mass index (BMI) of 32.0 to 32.9 in adult E66.09; Z68.32 Body mass index: BMI 32.0-32.9 Obesity classification: adult class 1 (BMI 30 - 34.9) Obesity type: due to excess calories Serious obesity comorbidity presence: without serious comorbidity Additional Codes SOLIS-7 Assessment Billing - SOLIS-7 Assessment Tool: SOLIS-7 Assessment [id number] ([id number])
[2023-02-17 10:39] VITALS: BP 116/72; PULSE 60; RESP 17; O2SAT 98; BMI 32.3
== END 2023-02-17 11:17 | disposition home or self-care (01) ==
PROVIDERS: PCP Physician Assistant; Visit Provider Physician Assistant
DX: F90.0 Attention-deficit hyperactivity disorder, predominantly inattentive type (principal); R76.0 Raised antibody titer; E66.09 Other obesity due to excess calories; Z68.32 Body mass index [BMI] 32.0-32.9, adult; F41.1 Generalized anxiety disorder
CPT/HCPCS: 99214

== ENCOUNTER 2023-07-21 08:12 | Outpatient (REF) | payer OTHER, SELFPAY ==
--- NOTE | ~2023-07-21 | FL_ITS ---
EXAMINATION: XR FLUOROSCOPY UPPER GI WITH AIR CLINICAL INFORMATION: Reflux COMPARISON: None TECHNIQUE: Fluoroscopic air contrast upper GI examination was performed utilizing standard techniques with thin and thick barium and effervescent granules. Numerous spot images were obtained. FINDINGS: Dual and single contrast images of the esophagus demonstrate normal caliber, contour, and mucosal pattern. No evidence of stricture, mass, or ulcerations identified. Esophageal peristalsis is mildly disorganized. No hiatal hernia is identified. Significant gastroesophageal reflux is seen up to the thoracic inlet. Dual contrast and single contrast images of the stomach demonstrated normal contour. There is prominence of the rugal folds and prominence of the areae gastricae, suggesting possible gastritis. No evidence of mass, ulceration, or other abnormality. Contrast freely passed into the gastric antrum and duodenal bulb without delay. Single and air-contrast images of the duodenal bulb demonstrate no abnormality. The duodenal sweep has a normal appearance, course, and mucosal fold appearance. No malrotation. The imaged proximal jejunum has a normal fold pattern and caliber. FLUOROSCOPY TIME: 5 minutes Number of Spot Images: 16 Number of Cine: 9 DOSE AREA PRODUCT: 3737 uGy-m2 (microgray-meter squared) FL/FL barium swallow with air IMPRESSION: 1. Mildly disorganized esophageal peristalsis. 2. Significant gastroesophageal reflux. 3. Gastric mucosal findings which may suggest mild gastritis. This procedure was performed by Carlos Martell PA-C, and supervised by Dr. Ahmadi
== END 2023-07-21 08:13 | disposition home or self-care (01) ==
LOC: HO.XRAY 08:12
PROVIDERS: PCP Physician Assistant; Visit Provider Physician Assistant
DX: K21.9 Gastro-esophageal reflux disease without esophagitis (principal)
CPT/HCPCS: 74221

== ENCOUNTER → 2023-07-21 08:15 | Outpatient (BNV) | payer OTHER, SELFPAY | PROVIDERS: PCP Physician Assistant; Visit Provider Physician Assistant Surgical | DX: K21.9 Gastro-esophageal reflux disease without esophagitis (principal) | CPT/HCPCS: 74221 ==

== ENCOUNTER 2023-09-17 09:16 | Outpatient (AMB) | payer OTHER, SELFPAY ==
[2023-09-17 09:25] VITALS: BP 140/102; PULSE 78; O2SAT 96; BMI 33.0
--- NOTE | 2023-09-17 09:25 | A.OFFPC_ITS ---
Vital Signs 09/17/23 09:25 Height 5 ft 4 in Weight 192 lb BMI 33.0 BP 140/102 H Blood Pressure Location Lt brachial Position Sitting Pulse 78 Pulse Source Pulse Oximeter Pulse Oximetry (%) 96 Oxygen Delivery Method Room Air Intake Visit Reasons: annual exam Intake Note: Patient is here today for a physical. 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 Accompanied by: Self / Same As Patient Allergies hydromorphone [Dilaudid] Allergy (Intermediate, Verified 09/17/23 09:45) stomach upset, itching bupropion [From Wellbutrin] Adverse Reaction (Intermediate, Verified 09/17/23 09:45) hair loss Medication List - Last Reconciled 09/17/23 by Abran Hidalgo PA-C Adderall XR 20 mg (dextroamphetamine-amphetamine) 20 mg PO DAILY 28 days NS albuterol sulfate 2.5 mg (3 mL) inhalation Q4-6H PRN albuterol sulfate 90 mcg/actuation 2 puffs inhalation Q4-6H PRN budesonide-formoterol 80-4.5 mcg/actuation (Symbicort) 2 puffs inhalation BID 30 days meloxicam 15 mg PO DAILY PRN 15 days multivitamin 1 tab PO DAILY omeprazole 20 mg PO DAILY [zinc ] Tobacco use date assessed: 09/17/23 Dental Screening Dental Screen Date: 09/17/23 Did you have a dental visit in the last 12 months?: Yes Did you have a dental problem in the last 6 months where you did not have access to dental care?: No Was dental information given to patient?: Patient has dentist HPI annual exam HPI Details Patient is a 53-year-old female here today for routine annual physical. Patient has a past medical history significant for moderate persistent asthma, ADHD, generalized anxiety disorder. -Concern-> noted elevated blood pressure readings today in office. She attributes this to gaining weight and dietary indiscretion. She would like to work on lifestyle modifications to reduce her weight and blood pressure .. ADHD: Was on Adderall 20 mg extended release in the past with good effect on her attention and focus. Has tried non stimulant ADHD medication (Strattera) though was not effective and caused side effect. She has stop Adderall medication for many months was found to be struggling in her job on her attention focus. Not able to keep focus on 1 task. She would like to return back to using Adderall or alternative medication to help her with her attention focus. Dysphagia: She did have a barium swallow test did show gastritis and some significant GERD. Has had history of H pylori. PLAN: Continue omeprazole .. Anxiety: Has been stable. Has not had to use any anxiety medication. .. Moderate persistent asthma: Has been fairly stable. Seldomly using her rescue inhalers. Denies any recent exacerbations in her asthma symptoms. Vaccines: Up-to-date with tetanus, pneumonia. Considering shingles Colon cancer screening: Colonoscopy done in 2022, no polyps though repeat 5 years due to history of polyps. mammo: needs Mammo PAINTER HAND: does see Dr Hanna ( [facility] Medical History (Updated 09/17/23 @ 11:52 by Abran Hidalgo PA-C) Chronic constipation TMJ (dislocation of temporomandibular joint) Low back pain Arthritis Anxiety Asthma Breast calcification, left Breast pain, left Breast lump Breast lump on right side at 3 o'clock position Surgical History H/O dilation and curettage History of colonoscopy History of hysteroscopy History of tubal ligation History of tonsillectomy History of section Family History Father No problems noted. 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 1. Little interest or pleasure in doing things: not at all 2. Feeling down, depressed, or hopeless: not at all 3. Trouble falling or staying asleep, or sleeping too much: not at all 4. Feeling tired or having little energy: not at all 5. Poor appetite or overeating: not at all 6. Feeling bad about yourself - or that you are a failure or have let yourself or your family down: not at all 7. Trouble concentrating on things, such as reading the newspaper or watching television: not at all 8. Moving or speaking so slowly that other people could have noticed. Or the opposite - being so fidgety or restless that you have been moving around a lot more than usual: not at all 9. Thoughts that you would be better off or of hurting yourself in some way: not at all Total score: 0 Depression Screening Interpretation: Negative Depression Screening Done: Yes 55305 - PHQ-9 Billing: Yes Source: Developed by Drs. Juan Marroquin, Zoë Barker, Carlos Mast and colleagues, with an educational geoffrey from [employer]. Thrive Questionnaire Date Thrive assessed: 09/17/23 I am a: Patient What is your living situation today?: I have a steady place to live Within the past 12 months, did the food you bought not last and you didn't have the money to get more?: Never true Within the past 12 months, did you worry whether your food would run out before you got money to buy more?: Never true Do you have trouble paying for medicines?: No Do you have trouble getting transportation to medical appointments?: No Do you have trouble paying your heating and electricity bill?: No Do you have trouble taking care of your child, family member or friend?: No Do you have trouble with day-to-day activities such as bathing, preparing meals, shopping, managing finances, etc.?: No Are you currently unemployed and looking for a job?: No Are you interested in more education?: No Please select the resources that you would like help with: None Currently or been in a relationship where the following occur: no concerns reported THRIVE Score: 0 AUDIT C Alcohol Use Questionnaire (AUDIT-C) 1. How often do you have a drink containing alcohol?: Never 3. How often do you have six or more drinks on one occasion?: Never Total Score: 0 SOLIS-7 AMB Questionnaire SOLIS-7 Date SOLIS - 7 assessed: 09/17/23 Feeling nervous, anxious, or on edge: 0 = Not at all Not being able to stop or control worryin = Not at all Worrying too much about different things: 0 = Not at all Trouble relaxin = Not at all Being so restless that it is hard to sit still: 0 = Not at all Becoming easily annoyed or irritable: 0 = Not at all Feeling afraid as if something awful might happen: 0 = Not at all Total SOLIS-7 score (0-4 normal; 5-9 mild; 10-14 moderate; 15-21 severe): 0 Source: Developed by Drs. Juan Marroquin, Zoë Barker, Carlos Mast and colleagues, with an educational geoffrey from [employer]. SOLIS-7 Assessment Billing SOLIS-7 Assessment Tool: SOLIS-7 Assessment 49044 ACT Questionnaire In the past 4 weeks, how much of the time did your asthma keep you from getting as much done at work, school or at home?: None of the time During the past 4 weeks, how often have you had shortness of breath?: Not at all During the past 4 weeks, how often did your asthma symptoms wake you up at night or earlier than usual in the morning?: Not at all During the past 4 weeks, how often have you had to use your rescue inhaler or nebulizer medication?: Not at all How would you rate your asthma control during the past 4 weeks?: Completely c ontrolled ACT Interpretation: Negative Score: 25 Review of Systems Const Denies body aches, Denies chills, Denies excessive sweating, Denies fatigue, Denies fever(s) and Denies headache(s) Eyes Denies blurry vision ENT Denies dysphagia, Denies vertigo, Denies dizziness, Denies headache(s), Denies hearing loss and Denies tinnitus Card Denies chest pain, Denies chest pain with activity, Denies syncope, Denies irregular heart rhythm and Denies dyspnea Resp Denies chest congestion, Denies cough, Denies hemoptysis, Denies dyspnea and Denies wheezing GI Denies abdominal pain, Denies melena, Denies hematochezia, Denies coffee ground emesis, Denies dysphagia, Denies diarrhea, Denies nausea and Denies vomiting Denies urinary frequency, Denies dysuria, Denies urinary hesitancy and Denies urinary urgency Musc Denies arthralgias, Denies limited range of motion, Denies muscle cramps and Denies muscle weakness Skin/Breast Denies rash and Denies skin ulcer Neuro Denies Abnormal speech present, Denies confusion, Denies vertigo, Denies dizziness, Denies syncope, Denies headache(s), Denies memory loss and Denies seizure-like activity Psych Denies anxiety, Denies confusion, Denies depression, Denies memory loss, Denies panic attacks and Denies paranoia Endo Denies excessive sweating, Denies fatigue, Denies flushing, Denies polydipsia and Denies polyuria Aller/Immun Denies wheezing Physical exam (Primary Care) Vital Signs: Last Vital Signs Pulse 78 09/17/23 09:25 BP 140/102 H 09/17/23 09:25 Pulse Ox 96 09/17/23 09:25 Oxygen Delivery Method Room Air 09/17/23 09:25 BMI result Body Mass Index 33.0 BMI Assessment/Plan discussion: High BMI High, discussed plan: lifestyle, weight reduction, dietary and physical activity Tobacco/Smoking Status: Tobacco use Status Tobacco use date assessed 09/17/23 09/17/23 09:33 Patient Tobacco Use Status Never used Tobacco 09/17/23 09:50 Tobacco use type Cigarette 09/17/23 09:50 e-Cigarette/Vaping Use Never Used 09/17/23 09:50 PHQ-9: PHQ-9 Score PHQ-9: Total score 0 09/17/23 09:46 Depression Screening Interpretation: Negative Thrive Assessment: Date of Thrive Assessment Date Thrive assessed 09/17/23 09/17/23 09:37 Currently or been in a relationship where the following occur: no concerns reported Const Other: Obese General: cooperative, comfortable, no acute distress, alert and awake; No confusion Orientation/consciousness: oriented to person, oriented to place, patient oriented x3 and No confusion HENMT Head: Yes normocephalic Ears: external ears normal and TM's normal bilaterally Face and sinus: No sinus tenderness Mouth: Normal oral and palatal mucosa present and tongue normal Teeth and gingiva: dentition normal and gingiva normal Throat: Yes posterior oropharynx normal, Yes tonsils normal and Yes uvula midline Eyes Conjunctivae: conjunctivae normal Sclerae: sclerae normal Pupils: Equal, round and reactive pupils present EOM: EOMs intact bilaterally Direct Ophthalmoscopy: No no photophobia Neck Neck: Yes no lymphadenopathy, No tender and Yes no JVD Thyroid: Thyroid normal Carotids: no bruits Chest Chest palpation & inspection: no tenderness Resp Effort & Inspection: normal respiratory effort, no audible wheezes, not labored and no stridor Auscultation: no crackles, no rales, no rhonchi and no wheezes Cardio Jugular venous distension: no JVD Rate: regular rate, not bradycardic and not tachycardic Rhythm: regular rhythm Bruits: no carotid bruits Peripheral pulses: Peripheral pulses 2+ throughout GI Inspection: Yes normal to inspection, No abdominal wall ecchymosis and No visible herniation Palpation (GI): Soft to palpation, nontender, no guarding, not rigid and No hepatosplenomegaly present Auscultation: normoactive bowel sounds General: Yes no CVA tenderness Back/Spine/Pelvis Back: no CVA tenderness and No back tenderness Cervical Spine: cervical ROM normal Thoracic/Lumbar Spine: thoracic and lumbar spine normal to inspection, straight leg raise negative bilaterally, No thoraco-lumbar ROM limited and No lumbar spinal tenderness Skin Lesions: no lesions Rashes: no rashes Wounds: no wounds Neuro General: oriented to person, oriented to place, patient oriented x3, CN's II-XI intact bilaterally and No confusion Cranial nerves: Yes Equal, round and reactive pupils present and Yes Normal accommodation reflex present Cognition (Neuro): normal cognition Speech: No Abnormal speech present Gait exam (Neuro): Normal gait present Motor exam (neuro): 5/5 motor strength present throughout Extrem Right upper extremity: full ROM; no cyanosis Left upper extremity: full ROM; no cyanosis Right lower extremity: no edema Left lower extremity: no edema Psych Appearance: grossly normal Mental Status: mental status grossly normal Affect: normal affect Attitude: cooperative Thought process: Normal thought process present Assessment and Plan Assessment & Plan (1) ADHD (attention deficit hyperactivity disorder): Code(s): F90.9 - Attention-deficit hyperactivity disorder, unspecified type Qualifiers: Attention deficit-hyperactivity disorder type: predominantly inattentive Qualified Code(s): F90.0 - Attention-deficit hyperactivity disorder, predominantly inattentive type Plan: As per HPI patient Has tried non stimulant ADHD medication though was not effective. Her ADHD symptoms have returned and has been nonproductive at work due to scattered thoughts. Will return back to Adderall 20 mg extended release which has been effective for her. (2) SOLIS (generalized anxiety disorder): Code(s): F41.1 - Generalized anxiety disorder Plan: Patient reports her anxiety has been much better. Has not had to use any anxiety medication. (3) Rheumatoid factor positive: Comment: : RF=16 Code(s): R76.8 - Other specified abnormal immunological findings in serum Plan: She does report continuing to have polyarthralgia. She does not use any [id number] anti arthritic medication. She is willing to try meloxicam again as needed. She would like to hold off on seeing a cytogenetic technologist for now. (4) Screening for diabetes mellitus (DM): Code(s): Z13.1 - Encounter for screening for diabetes mellitus (5) GERD (gastroesophageal reflux disease): Code(s): K21.9 - Gastro-esophageal reflux disease without esophagitis Qualifiers: Esophagitis presence: without esophagitis Qualified Code(s): K21.9 - Gastro-esophageal reflux disease without esophagitis Plan: Patient did undergo a barium swallow which did show signs of GERD and gastritis. Was started PPI therapy. (6) Obese: Code(s): E66.9 - Obesity, unspecified Qualifiers: Body mass index: BMI 32.0-32.9 Obesity classification: adult class 1 (BMI 30 - 34.9) Obesity type: due to excess calories Serious obesity comorbidity presence: without serious comorbidity Qualified Code(s): E66.09 - Other obesity due to excess calories; Z68.32 - Body mass index [BMI] 32.0-32.9, adult Plan: Has unfortunately gained weight since last office visit. Does admit to dietary indiscretion Patient does understand her BMI is over 30 will work on being more physically active and adapting to better eating habits to reduce her weight. (7) HTN (hypertension): Code(s): I10 - Essential (primary) hypertension Qualifiers: Hypertension type: primary hypertension Qualified Code(s): I10 - Essential (primary) hypertension Plan: Blood pressure slightly elevated today in office. We did discuss possibly starting blood pressure medication though would like to hold off and work on lifestyle/dietary modifications Goal blood pressures to be below 140/90 (8) Adult general medical exam: Code(s): Z00.00 - Encounter for general adult medical examination without abnormal findings (9) Asthma: Comment: no recent flares Code(s): J45.909 - Unspecified asthma, uncomplicated Qualifiers: Asthma severity: mild Asthma persistence: intermittent Asthma complication type: uncomplicated Qualified Code(s): J45.20 - Mild intermittent asthma, uncomplicated Plan: lesia reports her asthma has been well controlled with only p.r.n. use of her albuterol inhaler. Denies any recent exacerbations of her asthma or nighttime awakenings with asthma symptoms. Rarely has to use her maintenance inhaler (10) Breast cancer screening: Code(s): Z12.39 - Encounter for other screening for malignant neoplasm of breast Qualifiers: Breast cancer screening modality: mammogram Qualified Code(s): Z12.31 - Encounter for screening mammogram for malignant neoplasm of breast Orders: Orders H pylori Ag Stool Today K21.9 - Gastro-esophageal reflux disease without esophagitis MM screening mammo BI Today Z12.31 - Encounter for screening mammogram for malignant neoplasm of breast Medications: New blood pressure test kit-medium testing once per day 1 ea 0RF I10 - Essential (primary) hypertension Changed From Adderall XR 20 mg (dextroamphetamine-amphetamine) 20 mg PO DAILY 28 days 28 caps 0RF NS F90.0 - Attention-deficit hyperactivity disorder, predominantly inattentive type To Adderall XR 20 mg (dextroamphetamine-amphetamine) 20 mg PO BID 28 days 56 caps 0RF NS F90.0 - Attention-deficit hyperactivity disorder, predominantly inattentive type Refilled Adderall XR 20 mg (dextroamphetamine-amphetamine) 20 mg PO DAILY 28 days 28 caps 0RF NS F90.0 - Attention-deficit hyperactivity disorder, predominantly inattentive type meloxicam 15 mg PO DAILY 15 days PRN 15 tabs 1RF pain M25.50 - Pain in unspecified joint Patient Instructions: Goal: Blood pressure below 140/90 Barriers: Adherence to healthy eating habits and physical activity Coding Level of Care Code Est Pt Prev Care 40-64y(59418) Diagnoses Attention deficit hyperactivity disorder (ADHD), predominantly inattentive type F90.0 Attention deficit-hyperactivity disorder type: predominantly inattentive SOLIS (generalized anxiety disorder) F41.1 Rheumatoid factor positive R76.8 Screening for diabetes mellitus (DM) Z13.1 Gastroesophageal reflux disease without esophagitis K21.9 Esophagitis presence: without esophagitis Class 1 obesity due to excess calories without serious comorbidity with body mass index (BMI) of 32.0 to 32.9 in adult E66.09; Z68.32 Body mass index: BMI 32.0-32.9 Obesity classification: adult class 1 (BMI 30 - 34.9) Obesity type: due to excess calories Serious obesity comorbidity presence: without serious comorbidity Primary hypertension I10 Hypertension type: primary hypertension Adult general medical exam Z00.00 Mild intermittent asthma without complication J45.20 Asthma severity: mild Asthma persistence: intermittent Asthma complication type: uncomplicated Encounter for screening mammogram for malignant neoplasm of breast Z12.31 Breast cancer screening modality: mammogram Additional Codes SOLIS-7 Assessment Billing - SOLIS-7 Assessment Tool: SOLIS-7 Assessment [id number] ([id number])
== END 2023-09-17 10:18 | disposition home or self-care (01) ==
PROVIDERS: PCP Physician Assistant; Visit Provider Physician Assistant
DX: Z00.00 Encounter for general adult medical examination without abnormal findings (principal); F90.0 Attention-deficit hyperactivity disorder, predominantly inattentive type; F41.1 Generalized anxiety disorder; R76.8 Other specified abnormal immunological findings in serum; Z13.1 Encounter for screening for diabetes mellitus; K21.9 Gastro-esophageal reflux disease without esophagitis; E66.09 Other obesity due to excess calories; Z68.32 Body mass index [BMI] 32.0-32.9, adult; I10 Essential (primary) hypertension; J45.20 Mild intermittent asthma, uncomplicated; Z12.31 Encounter for screening mammogram for malignant neoplasm of breast
CPT/HCPCS: 99396

== ENCOUNTER 2023-09-17 10:25 | Outpatient (REF) | payer OTHER, SELFPAY ==
[2023-09-17 10:51] LABS: Hemoglobin 13.5 g/dl (12.0-16.0); Mean Corpuscular HGB Conc 32.9 g/dl (31.0-35.0); Mean Corpuscular Hemoglobin 28.4 pg (27.0-33.0); Mean Corpuscular Volume 86.3 fL (80.0-98.0); Mean Platelet Volume 9.3 fL (9.4-12.3); Platelet Count 257 X10*3/uL (160-400); Red Blood Count 4.75 X10*6/uL (4.20-5.50); Red Cell Distribution Width 13.1 % (11.0-16.0); White Blood Count 6.2 X10*3/uL (4.8-10.8)
[2023-09-17 11:25] LABS: Rheumatoid Factor < 13.0 IU/mL (<15.0)
[2023-09-17 11:38] LABS: Alanine Aminotransferase 23 U/L (0-31); Albumin Level 4.7 g/dL (3.5-5.0); Alkaline Phosphatase 71 U/L (39-117); Anion Gap 15 (12-20); Aspartate Amino Transferase 20 U/L (5-31); Bilirubin Total 0.6 mg/dL (0.0-1.0); Blood Urea Nitrogen 13 mg/dL (9-16); Calcium 10.4 mg/dL (8.4-10.2); Carbon Dioxide 25 mmol/L (22-29); Chloride 106 mmol/L (96-108); Estimated Glomerular Filt Rate > 60; Glucose Fasting 86 mg/dL (60-99); Sodium 142 mmol/L (135-145)
[2023-09-18 14:43] LABS: Anti DNA DS Antibody 2 IU/mL
[2023-09-19 15:53] LABS: Cyclic Citrullinated Peptide <16 UNITS
[2023-09-21 12:45] LABS: Anti Nuclear Antibody Pattern Nuclear, Speckled; Anti Nuclear Antibody Screen POSITIVE (NEGATIVE); Anti Nuclear Antibody Titer 1:40 titer
== END 2023-09-17 10:26 | disposition home or self-care (01) ==
LOC: HO.LAB 10:25
PROVIDERS: PCP Physician Assistant; Visit Provider Physician Assistant
DX: R76.8 Other specified abnormal immunological findings in serum (principal); J45.40 Moderate persistent asthma, uncomplicated; Z13.1 Encounter for screening for diabetes mellitus
CPT/HCPCS: 36415; 80053; 85027; 86038; 86039; 86200; 86225; 86431

== ENCOUNTER 2024-05-25 03:10 | Emergency (ER) | payer OTHER, SELFPAY ==
--- NOTE | 2024-05-25 | ECG_ITS ---
Test Reason : CHEST PAIN Blood Pressure : */* mmHG Vent. Rate : 76 BPM Atrial Rate : 76 BPM P-R Int : 148 ms QRS Dur : 90 ms QT Int : 390 ms P-R-T Axes : 34 19 34 degrees QTcB Int : 438 ms Normal sinus rhythm Normal ECG When compared with ECG of 11-Oct-2021 03:35, No significant change was found Referred By: Generic ED Physician Electronically Signed By: Jerry Maria
--- NOTE | ~2024-05-25 | XR_ITS ---
CLINICAL HISTORY: cp 2 view chest x-ray. Comparison: CR/SR - XR CHEST 1V - 10/11/21 05:31 EDT Findings: The lungs appear clear. There is no consolidation, effusion, or pneumothorax. Cardiomediastinal silhouette is within normal limits. IMPRESSION: No acute cardiopulmonary abnormality. This document has been electronically signed by: Reinaldo Lantigua MD on 05/25/2024 04:05:45
[2024-05-25 03:26] VITALS: BP 154/72; PULSE 75; RESP 18; TEMP 36.8; O2SAT 96; BMI 33.5
[2024-05-25 03:27] LABS: Basophils Percent Auto 0.4 % (0-2); Eosinophils Absolute Auto 0.1 X10*3/uL (0.0-0.4); Eosinophils Percent Auto 1.8 % (0-4); Hematocrit 39.7 % (37.0-47.0); Hemoglobin 13.6 g/dl (12.0-16.0); Imm Gran Abs Auto 0.02 X10*3/uL (0.00-0.03); Imm Gran Pct Auto 0.3 % (0.0-0.4); Lymphocytes Absolute Auto 3.3 X10*3/uL (1.2-4.9); Lymphocytes Percent Auto 42.6 % (20-40); MANUAL DIFF FLAG NO; Mean Corpuscular HGB Conc 34.3 g/dl (31.0-35.0); Mean Corpuscular Hemoglobin 28.3 pg (27.0-33.0); Mean Corpuscular Volume 82.7 fL (80.0-98.0); Mean Platelet Volume 8.9 fL (9.4-12.3); Monocytes Absolute Auto 0.4 X10*3/uL (0.1-1.2); Monocytes Percent Auto 5.3 % (2-11); Neutrophils Absolute Auto 3.9 x10*3/uL (2.0-8.3); Neutrophils Percent Auto 49.6 % (45-73); Platelet Count 259 X10*3/uL (160-400); Red Cell Distribution Width 12.8 % (11.0-16.0); White Blood Count 7.8 X10*3/uL (4.8-10.8)
[2024-05-25 03:50] LABS: Alkaline Phosphatase 79 U/L (39-117); Troponin-I High Sensitivity < 2.7 ng/L (<3.5-17.0)
[2024-05-25 03:51] LABS: Alanine Aminotransferase 16 U/L (0-31); Albumin Level 4.4 g/dL (3.5-5.0); Anion Gap 14 (12-20); Aspartate Amino Transferase 22 U/L (5-31); Bilirubin Total 0.5 mg/dL (0.0-1.0); Blood Urea Nitrogen 14 mg/dL (9-16); Calcium 9.8 mg/dL (8.4-10.2); Carbon Dioxide 22 mmol/L (22-29); Chloride 108 mmol/L (96-108); Creatinine Clr Calc Pharmacy 84.4; Estimated Glomerular Filt Rate > 60; Glucose Random 99 mg/dL (60-115); Magnesium 2.1 mg/dL (1.6-2.6); Potassium 3.9 mmol/L (3.3-5.1); Sodium 140 mmol/L (135-145)
[2024-05-25 05:49] VITALS: BP 151/81; PULSE 67; RESP 16; TEMP 36.8; O2SAT 97
[2024-05-25 06:58] VITALS: BP 116/41; PULSE 68; RESP 18; TEMP 36.8; O2SAT 97
--- NOTE | 2024-05-25 07:43 | PC.NURSE ---
pt refusing toradol via IM - requesting Tylenol or ibuprofen instead. provider notified/aware of pt request.
[2024-05-25] MEDS: Ibuprofen 600 MG TABLET PO (07:46)
--- NOTE | 2024-05-25 07:51 | PC.NURSE ---
medication administered per provider order. effectiveness pending.
--- NOTE | 2024-05-25 07:53 | ED.CHESTPAIN ---
HPI - Chest Pain General Chief Complaint: Chest Pain Stated Complaint: Chest Pain Time Seen by Provider: 05/25/24 06:46 Source: patient, RN notes reviewed and old records reviewed Mode of arrival: ambulatory Limitations: no limitations History of Present Illness ED Provider: MICHELLE CRUZ PA-C HPI narrative: 54 year old female with pmhx significant for asthma, rheumatoid arthritis, anxiety, GERD, hypertension, ADHD presents to the ED today for evaluation of sternal chest pain which woke her from her sleep around 0200 this morning. Pain is worse with deep breathing. No radiation. Pain is currently 3/10 and has been improving since onset. She states that this has been happening quite frequently where she will awake from her sleep with chest pain/ tightness. Symptoms will eventually resolve without intervention. Endorses hx of asthma however states this feels different. Denies fever, chills, sore throat, cough, sob, wheezing, palpitations, LE swelling, calf pain. Related Data Home Medications ?Medication ?Instructions ?Recorded ?Confirmed multivitamin 1 tab PO DAILY 06/28/22 09/17/23 zinc 06/28/22 09/17/23 Previous Rx's ?Medication ?Instructions ?Recorded albuterol sulfate 2.5 mg/3 mL 2.5 mg (3 mL) inhalation Q4-6H PRN 10/11/21 (0.083 %) solution for nebulization shortness of breath or wheezing #90 mL albuterol sulfate 90 mcg/actuation 2 puff inhalation Q4-6H PRN 02/17/23 aerosol inhaler bronchospasm #8.5 grams budesonide-formoterol HFA 80 2 puff inhalation BID 30 days 02/17/23 mcg-4.5 mcg/actuation aerosol #10.2 grams inhaler (Symbicort) omeprazole 20 mg capsule,delayed 20 mg PO DAILY #90 caps 07/22/23 release Adderall XR 20 mg capsule,extended 20 mg PO BID 28 days #56 caps 09/17/23 release (dextroamphetamine-amphetamine) blood pressure test kit-medium #1 ea 09/17/23 meloxicam 15 mg tablet 15 mg PO DAILY PRN pain 15 days 09/17/23 #15 tabs naproxen 500 mg tablet 500 mg PO Q12H PRN pain (scale 05/25/24 score 1-3) #20 tabs Allergies Allergy/AdvReac Type Severity Reaction Status Date / Time hydromorphone [Dilaudid] Allergy Intermediate stomach Verified 05/25/24 03:26 upset, itching bupropion [From Wellbutrin] AdvReac Intermediate hair loss Verified 05/25/24 03:26 Review of Systems Review of Systems: Constitutional: No fever, chills, fatigue, night sweats, weight changes ENT/Mouth: No ear pain, hearing loss, nasal congestion, sinus pain, rhinorrhea, sore throat Eyes: No eye pain, swelling, redness, vision changes, discharge Cardio: No palpitations, MARTIN, orthopnea, peripheral edema, +chest pain Pulm: No SOB, cough, sputum, wheezing, dyspnea, hemoptysis GI: No nausea, vomiting, hematemesis, abdominal pain, diarrhea, constipation, hematochezia, melena : No irregular bleeding, dysuria, frequency, urgency, hesitancy, hematuria, flank pain, urinary flow changes, urinary incontinence or retention MSK: No back pain, neck pain, joint pain, myalgias Skin: No lesions, rashes Neuro: No weakness, numbness, paresthesias, LOC, dizziness, headache Psych: No anxiety/panic, depression, SI/HI, AH/VH All other systems reviewed and are negative. COUNTS INCLUDE 234 BEDS AT THE [facility] Past Medical History Attestation statement: The following information was validated with the patient. Source: old records reviewed and nursing notes reviewed Medical History Chronic constipation TMJ (dislocation of temporomandibular joint) Low back pain Arthritis Anxiety Asthma Breast calcification, left Breast pain, left Breast lump Breast lump on right side at 3 o'clock position Surgical History H/O dilation and curettage History of colonoscopy History of hysteroscopy History of tubal ligation History of tonsillectomy History of section Family History Family History Father No problems noted. Mother Heart disease Diabetes Hypertension Hyperlipidemia Maternal Aunt Stroke Family/Other CAD (coronary artery disease) Maternal Aunt Colon cancer Sister Cancer Social History Social History (Reviewed 01/14/25 @ 08:50 by MODESTO De La Vega Housing: House Are you a primary career center director to a significant other at home: No Do you presently have visiting nurse or other home services: No Alcohol intake: never Patient Tobacco Use Status: Never used Tobacco Tobacco use type: Cigarette e-Cigarette/Vaping Use: Never Used Second Hand Smoke Exposure: No service: No Current occupational status: employed 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 Skin: Warm, dry, intact. No rashes or lesions. Head: Normocephalic, atraumatic. EENT: Hearing is intact b/l. Conjunctiva clear. PERRLA. EOM intact. Moist mucous membranes.? Neck: Supple without LAD Cardiac: Chest wall symmetric. RRR. no overlying skin changes to chest wall. There is reproducible chest wall tenderness over sternum without palpable deformity or crepitus. no peripheral edema. Lungs: Normal respiratory effort without accessory muscle use. CTA bilaterally. No rales, rhonchi, or wheezes.? Abdomen: Soft, non-tender, non-distended. No rebound tenderness or guarding Back: No midline spinous or paraspinal tenderness. No step off deformity. Ext: Upper and lower extremities atraumatic, without tenderness, deformity, swelling or erythema. Full ROM throughout. no calf tenderness. Neuro: AOx3. Normal speech. Ambulating with steady gait. Psych: Appropriate mood and affect. Responds appropriately to questions. Course Course Course Narrative: 804 -- CBC without leukocytosis or left shift. No anemia. H&H stable. Chemistry without acute electrolyte abnormality requiring intervention. No NANY. Normal liver function. Initial troponin undetectable, will repeat for delta. EKG showing normal sinus rhythm without acute ischemic changes or ST elevations. Chest x-ray without infiltrate or consolidation to suggest pneumonia. > viral swabs pending. D-dimer pending. Medicated with Motrin for 3/10 pain. will continue to monitor. 0850 -- delta troponin flat. Negative for COVID flu RSV. D-dimer undetectable. PE unlikely. Given unremarkable workup and reproducible chest wall tenderness, concern for costochondritis. Advised NSAIDs. Advised to follow up with PCP and or linux engineer. Patient has remained stable throughout ED visit today. Discussed worrisome signs and symptoms and when to return to the ED. All questions answered at this time. Patient is agreeable with disposition and stable for discharge. Medications Administered Discontinued Medications Generic Name Dose Route Start Last Admin Trade Name Freq PRN Reason Stop Dose Admin Ibuprofen 600 mg 05/25/24 07:40 05/25/24 07:46 Ibuprofen 600 Mg Tablet PO 05/25/24 07:41 600 mg ONCE ONE Administration Medical Decision Making Medical Decision Making MDM Narrative: 54 year old female with pmhx significant for asthma, rheumatoid arthritis, anxiety, GERD, hypertension, ADHD presents to the ED today for evaluation of sternal chest pain which woke her from her sleep around 0200 this morning. Vital signs stable. Afebrile. She is nontoxic-appearing and in no acute distress. On exam, no overlying skin changes to chest wall. There is reproducible chest wall tenderness over sternum without palpable deformity or crepitus. RRR. Lungs are CTA bilaterally without wheezes or rhonchi. No noted respiratory distress. This patient presents with chest pain, with symptoms suggestive of noncardiac chest pain.? History without high risk features (no exertional component, not relieved with rest).? No known cardiac issues such as coronary disease, MN or cardiomyopathy. Exam without evidence of volume overload. EKG without signs of active ischemia. HEART score: 3.? Given the timing of pain to ED presentation, plan to send delta troponin to evaluate for NSTEMI. PERC 1 - will obtain ddimer to r/o PE. Differential diagnosis also includes anemia, electrolyte abnormality, dehydration, GERD, anxiety, arrhythmia, costochondritis. Presentation not consistent with acute pneumothorax, thoracic aortic dissection, cardiac effusion or tamponade. Plan: labs, troponin, EKG, CXR, pain control, reassessment Differential Diagnosis Differential Diagnoses: The differential diagnosis associated with the presentation includes as above. Admission/Observation Consideration of admission/observation: Escalation of care including admission/observation considered Admission considered on presentation Lab Data MDM Lab Attestation statement: I reviewed the patient's lab results. As above 05/25/24 03:23 05/25/24 03:23 Labs: Lab Results 05/25/24 05/25/24 Range/Units 03:23 07:34 WBC 7.8 (4.8-10.8) X10*3/uL RBC 4.80 (4.20-5.50) X10*6/uL Hgb 13.6 (12.0-16.0) g/dl Hct 39.7 (37.0-47.0) % MCV 82.7 (80.0-98.0) fL MCH 28.3 (27.0-33.0) pg MCHC 34.3 (31.0-35.0) g/dl RDW 12.8 (11.0-16.0) % Plt Count 259 (160-400) X10*3/uL MPV 8.9 L (9.4-12.3) fL Immature Gran % (Auto) 0.3 (0.0-0.4) % Neut % (Auto) 49.6 (45-73) % Lymph % (Auto) 42.6 H (20-40) % [place] % (Auto) 5.3 (2-11) % Eos % (Auto) 1.8 (0-4) % Baso % (Auto) 0.4 (0-2) % Lymph # (Auto) 3.3 (1.2-4.9) X10*3/uL [place] # (Auto) 0.4 (0.1-1.2) X10*3/uL Eos # (Auto) 0.1 (0.0-0.4) X10*3/uL Baso # (Auto) 0.0 (0.0-0.2) X10*3/uL Abs Immat Gran (auto) 0.02 (0.00-0.03) X10*3/uL Absolute Neuts (auto) 3.9 (2.0-8.3) x10*3/uL Absolute Nucleated RBC 0.000 (0.0-0.012) X10*3/uL Nucleated RBC % (auto) 0.0 (0.0-0.2) /100WBC Hold Purple Top SEE NOTE D-Dimer High Sensitivty < 150 NG/ML Sodium 140 (135-145) mmol/L Potassium 3.9 (3.3-5.1) mmol/L Chloride 108 (96-108) mmol/L Carbon Dioxide 22 (22-29) mmol/L Anion Gap 14 (12-20) BUN 14 (9-16) mg/dL Creatinine 0.84 (0.5-1.4) mg/dL Estim Creat Clear Calc 84.4 Estimated GFR > 60 Random Glucose 99 (60-115) mg/dL Calcium 9.8 (8.4-10.2) mg/dL Magnesium 2.1 (1.6-2.6) mg/dL Total Bilirubin 0.5 (0.0-1.0) mg/dL AST 22 (5-31) U/L ALT 16 (0-31) U/L Alkaline Phosphatase 79 (39-117) U/L Troponin I High Sens < 2.7 < 2.7 (<3.5-17.0) ng/L Total Protein 8.0 (6.5-8.0) g/dL Albumin 4.4 (3.5-5.0) g/dL Influenza Type A (PCR) NEGATIVE (Negative) Influenza Type B (PCR) NEGATIVE (Negative) RSV RNA Qual (PCR) NEGATIVE (Negative) SARS-CoV-2 RNA (RT-PCR) NEGATIVE (Negative) Independent Interpretation I performed an independent interpretation of an: EKG and Plain X-Ray Interpretation: EKG showing normal sinus rhythm with a rate of 76 beats per minute, QT 390, QTC 438, no acute ischemic changes or ST elevations. Chest x-ray without infiltrate or consolidation Radiology Impression Discussion of test interpretation with radiology: I have reviewed the radiologist's reading. Radiologist Impression: Ordering Physician: Generic ED Physician Date of Service: 05/25/24 Procedure(s): XR chest 2V Accession Number(s): [id number] cc: Abran Hidalgo PA-C; Generic ED Physician~ CLINICAL HISTORY: cp 2 view chest x-ray. Comparison: CR/SR - XR CHEST 1V - 10/11/21 05:31 EDT Findings: The lungs appear clear. There is no consolidation, effusion, or pneumothorax. Cardiomediastinal silhouette is within normal limits. IMPRESSION: No acute cardiopulmonary abnormality. This document has been electronically signed by: Reinaldo Lantigua MD on 05/25/2024 04:05:45 External Record Review External record reviewed: Inpatient record, Office record, Outpatient record, Prior outpatient labs, Prior outpatient radiology, Primary care record and Outside ED record Prescription Management I considered prescription management with: Pain Medication Chronic Conditions Patient?s care impacted by: Hypertension Social Determinants Patient?s care significantly limited by Social Determinants of Health including: Other Social Determinant of Health Scores Heart Score History: -1- moderately suspicious ECG: -0- normal Age: -1- >45 - <65 Risk factory: -1- 1 or 2 risk factors Troponin: -0- < or = normal limit Score: 3 Risk: 1.7% Critical Care Time Critical Care Time Critical Care Time: No Discharge Plan Discharge Clinical Impression: Atypical chest pain Patient Disposition: Home, Self-Care Instructions: Chest Pain (ED), Noncardiac Chest Pain (ED), Chest Wall Pain (ED) Additional Instructions: You were evaluated in the Emergency Department today for chest pain. Your evaluation has shown no signs of medical conditions requiring emergent intervention at this time, however I recommend that you follow up with your primary care provider or your linux engineer as soon as possible for further testing as an outpatient. If you do not have one, a referral has been provided. Please call them to make an appointment, they will not call you. Your heart enzyme is normal x2. Your EKG and chest xray are both normal. Naproxen is an anti inflammatory pain medication that has been sent to your pharmacy for you to take as needed for pain. Not take this with other NSAIDs such as Motrin as this can cause increased risk of GI bleeding. Return to the Emergency Department if you experience worsening or uncontrolled chest pain, shortness of breath, light headedness, feeling faint, nausea, vomiting, or any other concerning symptoms. Prescriptions: New naproxen 500 mg tablet 500 mg PO Q12H PRN (Reason: pain (scale score 1-3)) Qty: 20 0RF No Action omeprazole 20 mg capsule,delayed release(DR/EC) 20 mg PO DAILY Qty: 90 1RF albuterol sulfate 2.5 mg /3 mL (0.083 %) solution for nebulization 2.5 mg inhalation Q4-6H PRN (Reason: shortness of breath or wheezing) Qty: 90 0RF multivitamin Tablet 1 tab PO DAILY zinc albuterol sulfate 90 mcg/actuation HFA aerosol inhaler 2 puff inhalation Q4-6H PRN (Reason: bronchospasm) Qty: 8.5 0RF budesonide-formoterol [Symbicort] 80-4.5 mcg/actuation HFA aerosol inhaler 2 puff inhalation BID 30 Days Qty: 10.2 3RF dextroamphetamine-amphetamine [Adderall XR] 20 mg capsule,extended release 24hr 20 mg PO BID 28 Days Qty: 56 0RF (DME) blood pressure test kit-medium Kit See Rx Instructions .Route Qty: 1 0RF Rx Instructions: testing once per day meloxicam 15 mg tablet 15 mg PO DAILY PRN (Reason: pain) 15 Days Qty: 15 1RF Referrals: [facility] [place] [facility] [Provider Group] Abran Hidalgo PA-C [Primary Care Provider] - Interventions: ED Discharge Assessment Last Done: 05/25/24 08:48 Discharge Date/Time: 05/25/24 08:48 Print Language: Tuvaluan
[2024-05-25 08:08] LABS: Troponin-I High Sensitivity < 2.7 ng/L (<3.5-17.0)
[2024-05-25 08:24] LABS: D Dimer High Sensitivity < 150 NG/ML
[2024-05-25 08:28] VITALS: BP 140/82; PULSE 62; RESP 16; O2SAT 98
[2024-05-25 08:48] VITALS: BP 140/82; PULSE 62; RESP 16; TEMP 36.8; O2SAT 98
[2024-05-25 08:53] LABS: Influenza A PCR NEGATIVE (Negative); Influenza B PCR NEGATIVE (Negative); Resp Syncy Virus RNA Qual PCR NEGATIVE (Negative); SARS COV2 PCR INHOUSE NEGATIVE (Negative)
== END 2024-05-25 08:48 | disposition home or self-care (01) ==
PROVIDERS: Physician Assistant Medical; Emergency Provider Emergency Medicine; PCP Physician Assistant
DX: R07.89 Other chest pain (principal); I10 Essential (primary) hypertension; J45.909 Unspecified asthma, uncomplicated; Z03.818 Encounter for observation for suspected exposure to other biological agents ruled out
CPT/HCPCS: 0241U; 36415; 71046; 80053; 83735; 84484; 85025; 85379; 93005; 99284; 99285

== ENCOUNTER → 2024-05-25 03:15 | Outpatient (BNV) | payer OTHER, SELFPAY | PROVIDERS: Emergency Provider Emergency Medicine; PCP Physician Assistant; Visit Provider Internal Medicine Cardiovascular Disease | DX: R07.9 Chest pain, unspecified (principal) | CPT/HCPCS: 93010 ==

== ENCOUNTER → 2024-05-25 03:35 | Outpatient (BNV) | payer OTHER, SELFPAY | PROVIDERS: PCP Physician Assistant; Visit Provider Radiology Diagnostic Radiology | DX: R07.9 Chest pain, unspecified (principal) | CPT/HCPCS: 71046 ==

== ENCOUNTER 2024-08-26 14:43 | Outpatient (AMB) | payer OTHER, SELFPAY ==
[2024-08-26 14:56] VITALS: BP 132/78; PULSE 76; TEMP 36.4; O2SAT 98; BMI 33.3
--- NOTE | 2024-08-26 14:56 | A.OFFPC_ITS ---
Vital Signs 08/26/24 14:56 Height 5 ft 4 in Weight 194 lb 4 oz BMI 33.3 BP 132/78 Blood Pressure Location Lt brachial Position Sitting Pulse 76 Pulse Source Pulse Oximeter Temp 97.5 F Temp Source Temporal Artery Scan Pulse Oximetry (%) 98 Oxygen Delivery Method Room Air Intake Visit Reasons: Heartburn and Pain in Upper GI Programming Equipment Operator Required: No Accompanied by: Self / Same As Patient Allergies hydromorphone [Dilaudid] Allergy (Intermediate, Verified 08/26/24 15:25) stomach upset, itching bupropion [From Wellbutrin] Adverse Reaction (Intermediate, Verified 08/26/24 15:25) hair loss Medication List - Last Reconciled 08/26/24 by Abran Hidalgo PA-C albuterol sulfate 2.5 mg (3 mL) inhalation Q4-6H PRN albuterol sulfate 90 mcg/actuation 2 puffs inhalation Q4-6H PRN blood pressure test kit-medium testing once per day budesonide-formoterol 80-4.5 mcg/actuation (Symbicort) 2 puffs inhalation BID 30 days dextroamphetamine-amphetamine 20 mg ER 20 mg PO BID 28 days meloxicam 15 mg PO DAILY PRN 15 days multivitamin 1 tab PO DAILY naproxen 500 mg PO Q12H PRN omeprazole 20 mg PO DAILY [zinc ] Tobacco use date assessed: 08/26/24 Dental Screening Dental Screen Date: 08/26/24 Did you have a dental visit in the last 12 months?: Yes Did you have a dental problem in the last 6 months where you did not have access to dental care?: No Was dental information given to patient?: Patient has dentist HPI Heartburn and Pain in Upper GI HPI Details The patient is a 54-year-old female presenting with significant symptoms consistent with Gastroesophageal Reflux Disease (GERD), including severe heartburn and associated nausea. These symptoms have been persistent and have impacted her quality of life. The patient has been using omeprazole for treatment but has been inconsistent with its administration. She reports that dietary incidences such as red meats and dairy exacerbate her symptoms. The patient is concerned about a previously treated H. pylori infection potentially recurring, given her current symptomatology. The patient's concerns also extend to ADHD, as she reports a substantial impact on her ability to maintain focus at work. She has not been on her prior medication, Adderall, due to insurance issues but has requested assistance with prior authorization or exploring alternative medications. There is a further concern about possible borderline diabetes, indicated by a recent external test indicating a near-diabetic range of A1c, although previous tests had shown normal fasting blood sugar levels. The patient acknowledges recent weight gain, which she connects to her GERD symptoms. [facility] [place] Medical History Chronic constipation TMJ (dislocation of temporomandibular joint) Low back pain Arthritis Anxiety Asthma Breast calcification, left Breast pain, left Breast lump Breast lump on right side at 3 o'clock position Surgical History H/O dilation and curettage History of colonoscopy History of hysteroscopy History of tubal ligation History of tonsillectomy History of section Family History Father No problems noted. Mother Heart disease Diabetes Hypertension Hyperlipidemia Maternal Aunt Stroke Family/Other CAD (coronary artery disease) Maternal Aunt Colon cancer Sister Cancer Social History Housing: House Are you a primary foster care worker to a significant other at home: No Do you presently have visiting nurse or other home services: No Alcohol intake: never Patient Tobacco Use Status: Never used Tobacco Tobacco use type: Cigarette e-Cigarette/Vaping Use: Never Used Second Hand Smoke Exposure: No service: No Current occupational status: employed Current occupation: [employer] Current occupational exposures/hazards: No Cognitive needs: No Hearing needs: No Vision needs: Yes Female Reproductive History Menstrual Age of Menarche: 13 Questionnaire PHQ-9 Over the last 2 weeks, how often have you been bothered by any of the following problems? 1. Little interest or pleasure in doing things: not at all 2. Feeling down, depressed, or hopeless: not at all 3. Trouble falling or staying asleep, or sleeping too much: not at all 4. Feeling tired or having little energy: not at all 5. Poor appetite or overeating: not at all 6. Feeling bad about yourself - or that you are a failure or have let yourself or your family down: not at all 7. Trouble concentrating on things, such as reading the newspaper or watching television: not at all 8. Moving or speaking so slowly that other people could have noticed. Or the opposite - being so fidgety or restless that you have been moving around a lot more than usual: not at all 9. Thoughts that you would be better off or of hurting yourself in some way: not at all Total score: 0 Depression Screening Interpretation: Negative Depression Screening Done: Yes 25014 - PHQ-9 Billing: Yes Source: Developed by Drs. Juan Marroquin, Zoë Barker, Carlos Mast and colleagues, with an educational geoffrey from [employer]. Thrive Questionnaire Date Thrive assessed: 08/26/24 I am a: Patient What is your living situation today?: I have a steady place to live Within the past 12 months, did the food you bought not last and you didn't have the money to get more?: Never true Within the past 12 months, did you worry whether your food would run out before you got money to buy more?: Never true Do you have trouble paying for medicines?: No Do you have trouble getting transportation to medical appointments?: No Do you have trouble paying your heating and electricity bill?: No Do you have trouble taking care of your child, family member or friend?: No Do you have trouble with day-to-day activities such as bathing, preparing meals, shopping, managing finances, etc.?: No Are you currently unemployed and looking for a job?: No Are you interested in more education?: No Please select the resources that you would like help with: None Currently or been in a relationship where the following occur: No concerns reported THRIVE Score: 0 AUDIT C Alcohol Use Questionnaire (AUDIT-C) 1. How often do you have a drink containing alcohol?: Never 3. How often do you have six or more drinks on one occasion?: Never Total Score: 0 SOLIS-7 AMB Questionnaire SOLIS-7 Date SOLIS - 7 assessed: 08/26/24 Feeling nervous, anxious, or on edge: 0 = Not at all Not being able to stop or control worryin = Not at all Worrying too much about different things: 0 = Not at all Trouble relaxin = Not at all Being so restless that it is hard to sit still: 0 = Not at all Becoming easily annoyed or irritable: 0 = Not at all Feeling afraid as if something awful might happen: 0 = Not at all Total SOLIS-7 score (0-4 normal; 5-9 mild; 10-14 moderate; 15-21 severe): 0 Source: Developed by Drs. Juan Marroquin, Zoë Barker, Carlos Mast and colleagues, with an educational geoffrey from [employer]. SOLIS-7 Assessment Billing SOLIS-7 Assessment Tool: SOLIS-7 Assessment 99166 Review of Systems Const Denies headache(s) Eyes Denies loss of vision ENT Denies vertigo, Denies dizziness, Denies headache(s) and Denies sore throat Card Denies chest pain, Denies leg edema and Denies lightheadedness Resp Denies cough, Denies hemoptysis and Denies wheezing GI Denies abdominal pain, Denies melena, Denies constipation, Denies diarrhea and Denies vomiting Denies urinary frequency, Denies dysuria and Denies urinary urgency Musc Denies arthralgias, Denies joint swelling, Denies numbness and Denies tingling Neuro Denies Abnormal speech present, Denies behavioral changes, Denies vertigo, Denies dizziness, Denies headache(s), Denies loss of vision, Denies memory loss, Denies numbness and Denies tingling Psych Denies anxiety, Denies behavioral changes, Denies depression, Denies memory loss and Denies panic attacks Ghanshyam/Lymph Denies easy bleeding and Denies easy bruising Aller/Immun Denies wheezing Physical exam (Primary Care) Vital Signs: Last Vital Signs Temp 97.5 F 08/26/24 14:56 Pulse 76 08/26/24 14:56 BP 132/78 08/26/24 14:56 Pulse Ox 98 08/26/24 14:56 Oxygen Delivery Method Room Air 08/26/24 14:56 BMI result Body Mass Index 33.3 BMI Assessment/Plan discussion: High BMI High, discussed plan: lifestyle, weight reduction, dietary and physical activity Tobacco/Smoking Status: Tobacco use Status Tobacco use date assessed 08/26/24 08/26/24 15:03 Patient Tobacco Use Status Never used Tobacco 08/26/24 14:58 Tobacco use type Cigarette 08/26/24 14:58 e-Cigarette/Vaping Use Never Used 08/26/24 14:58 PHQ-9: PHQ-9 Score PHQ-9: Total score 0 08/26/24 15:27 Depression Screening Interpretation: Negative Thrive Assessment: Date of Thrive Assessment Date Thrive assessed 08/26/24 08/26/24 15:03 Currently or been in a relationship where the following occur: No concerns reported Const General: healthy appearing, no acute distress, alert and awake Nutritional Appearance: well nourished Orientation/consciousness: oriented to person, oriented to place and oriented to time HENMT Ears: TM's normal bilaterally General nose exam: Normal nasal mucous membranes and turbinates present Eyes Conjunctivae: conjunctivae normal Sclerae: sclerae normal Pupils: Equal, round and reactive pupils present Neck Neck: Yes no lymphadenopathy and Yes no JVD Thyroid: Thyroid normal Carotids: no bruits Resp Effort & Inspection: normal respiratory effort and not tachypneic Auscultation: no crackles, no rales, no rhonchi and no wheezes Cardio Rate: regular rate Rhythm: regular rhythm Heart sounds: no murmurs and normal S1 and S2 GI Palpation (GI): Soft to palpation, nontender, no hepatomegaly and no splenomegaly Auscultation: normal bowel sounds Skin General skin exam: no rashes or lesions noted and dry skin Neuro General: oriented to person, oriented to place and oriented to time Cranial nerves: Yes Equal, round and reactive pupils present Speech: No Abnormal speech present Gait exam (Neuro): Normal gait present Motor exam (neuro): no tremor noted Extrem Right upper extremity: full ROM Left upper extremity: full ROM Right lower extremity: full ROM; no edema Left lower extremity: full ROM; no edema Psych Mental Status: mental status grossly normal Speech and movement: Normal speech and movement present Affect: normal affect Attitude: cooperative Thought process: Normal thought process present Coding Level of Care Code Est Pt Level 4 (50320) Diagnoses Gastroesophageal reflux disease without esophagitis K21.9 Esophagitis presence: without esophagitis Impaired glucose metabolism R73.09 Attention deficit hyperactivity disorder (ADHD), predominantly inattentive type F90.0 Attention deficit-hyperactivity disorder type: predominantly inattentive Class 1 obesity E66.811 Additional Codes SOLIS-7 Assessment Billing - SOLIS-7 Assessment Tool: SOLIS-7 Assessment 75474 ([id number]) PHQ-9 - 98423 - PHQ-9 Billing: Yes ([id number]) Assessment & Plan Assessment & Plan (1) GERD (gastroesophageal reflux disease): Code(s): K21.9 - Gastro-esophageal reflux disease without esophagitis Category: Medical Qualifiers: Esophagitis presence: without esophagitis Qualified Code(s): K21.9 - Gastro-esophageal reflux disease without esophagitis Plan: I plan to increase omeprazole to 40 mg daily taken in the morning on an empty stomach. Dietary changes to reduce GERD symptoms are discussed, and an upper endoscopy is recommended to investigate further. A stool test for H. pylori will be conducted to rule out infection. I advised strategies for weight management to alleviate symptoms. (2) Impaired glucose metabolism: Code(s): R73.09 - Other abnormal glucose Category: Medical Plan: I will perform further blood glucose testing, including an A1c, to assess diabetes risk. The patient's recent weight gain may influence her symptoms, and I advised dietary monitoring. Follow-up once testing is complete to determine appropriate interventions. (3) ADHD (attention deficit hyperactivity disorder): Code(s): F90.9 - Attention-deficit hyperactivity disorder, unspecified type Category: Medical Qualifiers: Attention deficit-hyperactivity disorder type: predominantly inattentive Qualified Code(s): F90.0 - Attention-deficit hyperactivity disorder, predominantly inattentive type Plan: The patient and I discussed alternative ADHD medications, including Vyvanse and Concerta, in case insurance does not authorize Adderall. Communication for prescriptions or further needs via the online portal is encouraged. (4) Class 1 obesity: Code(s): E66.811 - Obesity, class 1 Category: Medical Plan: Patient does understand her BMI is over 30 will work on being more physically active and adapting to better eating habits to reduce her weight Orders: Orders Hemoglobin A1c 08/26/24 R73.09 - Other abnormal glucose H pylori Ag Stool 08/26/24 K21.9 - Gastro-esophageal reflux disease without esophagitis Comprehensive Uledi. Panel Fast 08/26/24 I10 - Essential (primary) hypertension Complete Blood Count no Diff 08/26/24 R73.09 - Other abnormal glucose Referrals Gastroenterology Referral K21.9 - Gastro-esophageal reflux disease without esophagitis Medications: New omeprazole 40 mg PO DAILY 90 caps 1RF 90 days K21.9 - Gastro-esophageal reflux disease without esophagitis Discontinued naproxen Discontinued Reason: Doctor's Order 500 mg PO Q12H PRN 20 tabs 0RF pain (scale score 1-3) meloxicam Discontinued Reason: Doctor's Order 15 mg PO DAILY 15 days PRN 15 tabs 1RF pain M25.50 - Pain in unspecified joint omeprazole Discontinued Reason: Doctor's Order 20 mg PO DAILY 90 caps 1RF K21.9 - Gastro-esophageal reflux disease without esophagitis
--- OUTSIDE RECORDS SUMMARY | 2024-08-26 17:37 | XMS_ITS | Clinical Summary ---
Author Organization [facility] Address [address] [place] [address] Phone Care Team Providers Care Talcer Name Role Phone Abran Hidalgo Primary Care Provider [phone] Allergies Active Allergy Reactions Criticality Noted Date Comments Bupropion Hcl 11/08/2021 Hair loss Hydromorphone GI intolerance 11/08/2021 Medications albuterol HFA (PROAIR HFA ; PROVENTIL HFA ; VENTOLIN HFA) 90 mcg/actuation inhaler Inhale 2 puffs by mouth every 4 (four) hours if needed for wheezing. 1 each 05/29/2024 Active Encounters Date Type Department Care Team Description 05/29/2024 2:46 AM EST - 05/29/2024 5:39 AM EST Emergency [facility] Emergency [address] [place] [address] Charlene Bonilla MD Acute bronchitis with bronchospasm (Primary Dx); Pleurisy Discharge Disposition: Home or Self Care from Last 3 Months Medical History Medical History Date Comments GERD (gastroesophageal reflux disease) Social History Tobacco Use Types Packs/Day Years Used Date Smoking Tobacco: Never Smokeless Tobacco: Never Tobacco Cessation:Counseling Given: Not Answered Comments Unknown Sex and Gender Information Value Date Recorded Sex Assigned at Female 05/29/2024 3:33 AM EST Legal Sex Female 4:47 AM EST Gender Identity Female 05/29/2024 3:33 AM EST Sexual Orientation Not on file Obstetrics History Last Filed Vital Signs Vital Sign Reading Time Taken Comments Blood Pressure 139/82 05/29/2024 3:39 AM EST Pulse 73 05/29/2024 3:39 AM EST Temperature 36.8 ??C (98.2 ??F) 05/28/2024 11:[address] Respiratory Rate 18 05/29/2024 3:39 AM EST Oxygen Saturation 96% 05/29/2024 3:39 AM EST Inhaled Oxygen Concentration - - Weight 86.2 kg (190 lb) 05/28/2024 11:29 PM EST Height 162.6 cm (5' 4 ) 05/28/2024 11:29 PM EST Body Mass Index 32.61 05/28/2024 11:29 PM EST Plan of Treatment Health Maintenance Due Date Last Done Comments Breast Cancer Screening 1970 DTaP,Tdap,and Td Vaccines (1 - Tdap) 02/01/1991 Hepatitis B Vaccines (1 of 3 - 19+ 3-dose series) 02/01/1991 Cervical Cancer Screening: P ap Smear 02/01/1993 Pneumococcal Vaccine: 50+ Ye ars (1 of 1 - PCV) 02/01/2022 Zoster Vaccines (1 of 2) 02/01/2022 COVID-19 Vaccine (1 - 2023-2 5 season) 2024 Colorectal Cancer Screening: Colonoscopy 05/29/2024 Depression Screening 05/29/2024 HIV Screening 05/29/2024 Hepatitis C Screening 05/29/2024 Social Influencers of Health Screening 05/29/2024 Influenza Vaccine (Season Ended) 2025 HIB Vaccines Aged Out No longer eligi ble based on patient's age to complete this topic HPV Vaccines Aged Out No longer eligi ble based on patient's age to complete this topic Hepatitis A Vaccines Aged Out No long er eligible based on patient's age to complete this topic IPV Vaccines Aged Out No longer eligi ble based on patient's age to complete this topic MMR Vaccines Aged Out No longer eligi ble based on patient's age to complete this topic Meningococcal ACWY Vaccine Aged Out N o longer eligible based on patient's age to complete this topic Meningococcal B Vaccine Aged Out No l onger eligible based on patient's age to complete this topic Pneumococcal Vaccine: Pediat rics (0 to 5 Years) and At-Risk Patients (6 to 64 Years) Aged Out No longer eligible b ased on patient's age to complete this topic RSV Immunization Patients Un tim 20 months Aged Out No longer eligible b ased on patient's age to complete this topic Varicella Vaccines Aged Out No longer eligible based on patient's age to complete this topic Procedures Procedure Name Priority Date/Time Associated Diagnosis Comments TROPONIN I HIGH SENSITIVITY STAT 05/29/2024 3:25 AM EST ECG 12-LEAD STAT 05/29/2024 3:17 AM EST ECG ANNOTATED 05/29/2024 ECG ANNOTATED 05/29/2024 XR CHEST 2 VIEWS STAT 05/28/2024 11:4 0 PM EST CBC WITH AUTO DIFFERENTIAL STAT 05/28/2024 11:33 PM EST MAGNESIUM STAT 05/28/2024 11:33 PM EST LIPASE STAT 05/28/2024 11:33 PM EST COMPREHENSIVE METABOLIC PANEL STAT 05/28/2024 11:33 PM EST CBC AND DIFFERENTIAL STAT 05/28/2024 11:33 PM EST TROPONIN I HIGH SENSITIVITY STAT 05/28/2024 11:33 PM EST from Last 3 Months Results * Troponin I high sensitivity (05/29/2024 3:25 AM EST) Only the most recent of2 resultswithin the time period is included. High Sensitivity Troponin I 4 <=54 ng/L LAB CHEMISTRY METHOD 05/29/2024 5:54 AM EST [facility] Blood Venous blood specimen / Unknown Venipuncture / Unknown 05/29/2024 3:25 AM EST 05/29/2024 5:21 AM EST Narrative [facility] - 05/29/2024 5:54 AM EST High levels of biotin in samples may falsely decrease hsTroponin values. ??Use caution when interpreting hsTroponin results in patients taking biotin who exhibit renal impairment (eGFR <60) or in patients taking more than 20 mg/day of biotin. Charlene Bonilla MD LAB BLOOD ORDERABLES Fin al Result Performing Organization Address City/[facility]/ZIP Co de Phone Number [facility] [place] ([facility]) [facility] [address] [place] [address], [place] [phone] * ECG 12 lead (05/29/2024 3:17 AM EST) Ventricular Rate ECG 77 BPM GEMUSE Atrial Rate 77 BPM GEMUSE P-R Interval 150 ms GEMUSE QRS Duration 96 ms GEMUSE Q-T Interval 396 ms GEMUSE QTc 448 ms GEMUSE P Wave Bluejacket 24 degrees GEMUSE R Bluejacket 21 degrees GEMUSE T Bluejacket 16 degrees GEMUSE ECG Interpretation Normal sinus rhythm When compared with ECG of 28-MAY-2024 23:25, (unconfirmed) No significant change was found Confirmed by CANDICE US ([id number]) on 05/30/2024 12:20:46 AM GEMUSE 05/29/2024 3:17 AM EST 05/30/2024 12:20 AM EST Charlene Bonilla MD ECG ORDERABLES Final Re sult Performing Organization Address [facility] Co de Phone Number GEMUSE * ECG-Annotated (05/29/2024) Only the most recent of2 resultswithin the time period is included. Provider Onbase ECG ORDERABLES Final Result * XR Chest 2 Views (05/28/2024 11:40 PM EST) Anatomical Region Laterality Modality Body Radiographic Gilda ging 05/29/2024 7:19 AM EST Impressions 05/29/2024 7:20 AM EST Unremarkable chest exam. -------- FINAL REPORT -------- Dictated By: Edison Ohara Dictated Date: 05/29/2024 07:19 ET Assigned Physician: Edison Ohara Reviewed and Electronically Signed By: Edison Ohara Signed Date: 05/29/2024 07:20 ET Workstation ID: [id number] Transcribed By: Self Edit Transcribed Date: 05/29/2024 07:19 ET Narrative 05/29/2024 7:20 AM EST Examination: Chest 2 views. CLINICAL INDICATION: Left chest pain and left thumb pain. Nonsmoker. COMPARISON: Chest portable 01/13/2021. FINDINGS: The lungs are expanded and clear acute process. The heart size and pulmonary vascularity is normal. There is mild spondylosis of dorsal spine. No aggressive lytic or sclerotic process seen. Procedure Note Edison Ohara MD - 05/29/2024 Examination: Chest 2 views. CLINICAL INDICATION: Left chest pain and left thumb pain. Nonsmoker. COMPARISON: Chest portable 01/13/2021. FINDINGS: The lungs are expanded and clear acute process. The heart sizeand pulmonary vascularity is normal. There is mild spondylosis of dorsalspine. No aggressive lytic or sclerotic process seen. IMPRESSION: Unremarkable chest exam. -------- FINAL REPORT -------- Dictated By: Edison Ohara Dictated Date: 05/29/2024 07:19 ET Assigned Physician: Edison Ohara Reviewed and Electronically Signed By: Edison Ohara Signed Date: 05/29/2024 07:20 ET Workstation ID: [id number] Transcribed By: Self Edit Transcribed Date: 05/29/2024 07:19 ET us Charlene Bonilla MD IMG XR PROCEDURES Final Result * CBC auto differential (05/28/2024 11:33 PM EST) WBC 10.3 4.8 - 10.8 K/mcL LAB HEMETOLOGY METHOD 05/28/2024 11:58 PM EST [facility] RBC 4.70 3.80 - 4.80 M/mcL LAB HEMETOLOGY METHOD 05/28/2024 11:58 PM EST [facility] Hemoglobin 12.9 11.5 - 16.0 g/dL LAB HEMETOLOGY METHOD 05/28/2024 11:58 PM [facility] Hematocrit 40.0 35.0 - 47.0 % LAB HEMETOLOGY METHOD 05/28/2024 11:58 PM [facility] MCV 86.0 79.0 - 98.0 FL LAB HEMETOLOGY METHOD 05/28/2024 11:58 PM [facility] MCH 27.7 27.0 - 32.0 pcg LAB HEMETOLOGY METHOD 05/28/2024 11:58 PM [facility] MCHC 32.3 32.0 - 37.0 g/dL LAB HEMETOLOGY METHOD 05/28/2024 11:58 PM [facility] RDW 12.8 11.0 - 15.0 % LAB HEMETOLOGY METHOD 05/28/2024 11:58 PM [facility] Platelets 244 130 - 400 K/mcL LAB HEMETOLOGY METHOD 05/28/2024 11:58 PM [facility] MPV 9.3 7.0 - 11.0 FL LAB HEMETOLOGY METHOD 05/28/2024 11:58 PM [facility] NRBC 0.0 <1.0 % LAB HEMETOLOGY METHOD 05/28/2024 11:58 PM [facility] NRBC Absolute 0.00 <0.10 K/mcL LAB HEMETOLOGY METHOD 05/28/2024 11:58 PM [facility] Neutrophils Relative 63.5 % LAB HEMETOLOGY METHOD 05/28/2024 11:58 PM [facility] Lymphocytes Relative 28.2 % LAB HEMETOLOGY METHOD 05/28/2024 11:58 PM [facility] Monocytes Relative 6.0 % LAB HEMETOLOGY METHOD 05/28/2024 11:58 PM [facility] Eosinophils Relative 1.6 % LAB HEMETOLOGY METHOD 05/28/2024 11:58 PM EST [facility] Basophils Relative 0.4 % LAB HEMETOLOGY METHOD 05/28/2024 11:58 PM EST [facility] Immature Granulocytes Relative 0.3 % LAB HEMETOLOGY METHOD 05/28/2024 11:58 PM [facility] Neutrophils Absolute 6.52 1.50 - 7.00 K/mcL LAB HEMETOLOGY METHOD 05/28/2024 11:58 PM EST [facility] Lymphocytes Absolute 2.90 1.00 - 5.00 K/mcL LAB HEMETOLOGY METHOD 05/28/2024 11:58 PM [facility] Monocytes Absolute 0.62 0.20 - 1.00 K/mcL LAB HEMETOLOGY METHOD 05/28/2024 11:58 PM [facility] Eosinophils Absolute 0.16 0.00 - 0.50 K/mcL LAB HEMETOLOGY METHOD 05/28/2024 11:58 PM EST [facility] Basophils Absolute 0.04 0.00 - 0.20 K/mcL LAB HEMETOLOGY METHOD 05/28/2024 11:58 PM EST [facility] Immature Granulocytes Absolute 0.03 0.00 - 0.03 K/mcL LAB HEMETOLOGY METHOD 05/28/2024 11:58 PM [facility] Blood Venous blood specimen / Unknown Venipuncture / Unknown 05/28/2024 11:33 PM EST 05/28/2024 11:54 PM EST us Charlene Bonilla MD LAB BLOOD ORDERABLES Fin al Result [facility] [address] [place] [address], * Magnesium (05/28/2024 11:33 PM EST) Magnesium 2.5 1.9 - 2.6 mg/dL LAB CHEMISTRY METHOD 05/29/2024 12:23 AM [facility] Blood Venous blood specimen / Unknown Venipuncture / Unknown 05/28/2024 11:33 PM EST 05/28/2024 11:54 PM EST Charlene Bonilla MD LAB BLOOD ORDERABLES Fin al Result Performing Organization Address City/[facility]/ZIP Co de Phone Number [facility] [address] [place] [address], [place] [phone] * Lipase (05/28/2024 11:33 PM EST) Pathologist [facility] [place] Lipase 46 13 - 75 unit/L LAB CHEMISTRY METHOD 05/29/2024 12:23 AM [facility] Blood Venous blood specimen / Unknown Venipuncture / Unknown 05/28/2024 11:33 PM EST 05/28/2024 11:54 PM EST Charlene Bonilla MD LAB BLOOD ORDERABLES Fin al Result Performing Organization Address [facility]/ZIP Co de Phone Number [facility] [address] [place] [address], [place] [phone] * (ABNORMAL) Comprehensive metabolic panel (05/28/2024 11:33 PM EST) Pathologist [facility] [place] Sodium 137 133 - 145 mmol/L LAB CHEMISTRY METHOD 05/29/2024 12:23 AM [facility] Potassium 3.9 3.5 - 5.5 mmol/L LAB CHEMISTRY METHOD 05/29/2024 12:23 AM [facility] Chloride 106 96 - 110 mmol/L LAB CHEMISTRY METHOD 05/29/2024 12:23 AM [facility] CO2 28 21 - 32 mmol/L LAB CHEMISTRY METHOD 05/29/2024 12:23 AM [facility] Anion Gap 3 3 - 11 LAB CHEMISTRY METHOD 05/29/2024 12:23 AM [facility] Glucose 102(H) 70 - 100 mg/dL LAB CHEMISTRY METHOD 05/29/2024 12:23 AM [facility] BUN 10 5 - 25 mg/dL LAB CHEMISTRY METHOD 05/29/2024 12:23 AM [facility] Creatinine 0.97 0.50 - 1.10 mg/dL LAB CHEMISTRY METHOD 05/29/2024 12:23 AM [facility] eGFR 70 >=60 mL/min/1. 73m2 LAB CHEMISTRY METHOD 05/29/2024 12:23 AM [facility] Comment:Calculation based on the??Chronic Kidney Disease Epidemiology Collaboration (CKD-EPI) equation refit??without adjustment for race. BUN/Creatinine Ratio 10.3 LAB CHEMISTRY METHOD 05/29/2024 12:23 AM [facility] Calcium 9.5 8.5 - 10.5 mg/dL LAB CHEMISTRY METHOD 05/29/2024 12:23 AM [facility] AST (SGOT) 16 10 - 42 unit/L LAB CHEMISTRY METHOD 05/29/2024 12:23 AM [facility] ALT (SGPT) 23 10 - 60 unit/L LAB CHEMISTRY METHOD 05/29/2024 12:23 AM [facility] Alkaline Phosphatase 88 42 - 121 unit/L LAB CHEMISTRY METHOD 05/29/2024 12:23 AM [facility] Total Protein 7.4 6.0 - 8.0 g/dL LAB CHEMISTRY METHOD 05/29/2024 12:23 AM [facility] Albumin 4.1 3.2 - 5.0 g/dL LAB CHEMISTRY METHOD 05/29/2024 12:23 AM [facility] Total Bilirubin 0.6 0.0 - 1.4 mg/dL LAB CHEMISTRY METHOD 05/29/2024 12:23 AM [facility] Blood Venous blood specimen / Unknown Venipuncture / Unknown 05/28/2024 11:33 PM EST 05/28/2024 11:54 PM EST us Charlene Bonilla MD LAB BLOOD ORDERABLES Fin al Result [facility] ([facility]) [facility] [address] [place] [address], from Last 3 Months Insurance [employer] Care Teams Talcer Relationship Specialty Start Date End Date Abran Hidalgo PA PCP - General Physician Enamel Drier 05/29/24
== END 2024-08-26 15:46 | disposition home or self-care (01) ==
LOC: HO.HMCH 14:44
PROVIDERS: PCP Physician Assistant; Visit Provider Physician Assistant
DX: K21.9 Gastro-esophageal reflux disease without esophagitis (principal); R73.09 Other abnormal glucose; E66.811 Obesity, class 1; Z68.33 Body mass index [BMI] 33.0-33.9, adult; F90.0 Attention-deficit hyperactivity disorder, predominantly inattentive type

== ENCOUNTER → 2024-08-26 14:43 | Outpatient (BNVA) | payer OTHER, SELFPAY | PROVIDERS: PCP Physician Assistant; Visit Provider Physician Assistant | DX: K21.9 Gastro-esophageal reflux disease without esophagitis (principal); R73.09 Other abnormal glucose; F90.0 Attention-deficit hyperactivity disorder, predominantly inattentive type; E66.811 Obesity, class 1; Z68.33 Body mass index [BMI] 33.0-33.9, adult; Z79.899 Other long term (current) drug therapy | CPT/HCPCS: 96127 ==

== ENCOUNTER 2024-09-03 07:22 | Outpatient (REF) | payer OTHER, SELFPAY ==
--- OUTSIDE RECORDS SUMMARY | 2024-09-03 08:31 | XMS_ITS | Clinical Summary ---
Author Organization [facility] [place] [address] Phone Care Team Providers Care Mix Technician Name Role Phone Abran Hidalgo Primary Care Provider [phone]- [phone] Allergies Active Allergy Reactions Criticality Noted Date Comments Bupropion Hcl 11/08/2021 Hair loss Hydromorphone GI intolerance 11/08/2021 Medications albuterol HFA (PROAIR HFA ; PROVENTIL HFA ; VENTOLIN HFA) 90 mcg/actuation inhaler Inhale 2 puffs by mouth every 4 (four) hours if needed for wheezing. 1 each 05/29/2024 Active Medical History Medical History Date Comments GERD [...] on patient's age to complete this topic Insurance [employer] Care Teams Mix Technician Relationship Specialty Start Date End Date Abran Hidalgo PA PCP - General Physician Squad Boss 05/29/24
[2024-09-03 09:09] LABS: Hematocrit 40.2 % (37.0-47.0); Hemoglobin 13.5 g/dl (12.0-16.0); Mean Corpuscular HGB Conc 33.6 g/dl (31.0-35.0); Mean Corpuscular Hemoglobin 28.1 pg (27.0-33.0); Mean Corpuscular Volume 83.8 fL (80.0-98.0); Mean Platelet Volume 9.3 fL (9.4-12.3); Platelet Count 250 X10*3/uL (160-400); Red Cell Distribution Width 13.2 % (11.0-16.0); White Blood Count 6.2 X10*3/uL (4.8-10.8)
[2024-09-03 09:27] LABS: Estimated Average Glucose 111 mg/dL; Hemoglobin A1C 133.0615 umol/L; Hemoglobin A1c % 5.5 % (<6.0); Total Hemoglobin (HGBA1C) 3659.3928 umol/L
[2024-09-03 09:52] LABS: Alanine Aminotransferase 13 U/L (0-31); Albumin Level 4.5 g/dL (3.5-5.0); Alkaline Phosphatase 72 U/L (39-117); Anion Gap 12 (12-20); Aspartate Amino Transferase 18 U/L (5-31); Bilirubin Total 0.7 mg/dL (0.0-1.0); Blood Urea Nitrogen 13 mg/dL (9-16); Calcium 9.7 mg/dL (8.4-10.2); Carbon Dioxide 23 mmol/L (22-29); Chloride 107 mmol/L (96-108); Estimated Glomerular Filt Rate > 60; Glucose Fasting 87 mg/dL (60-99); Potassium 4.1 mmol/L (3.3-5.1); Sodium 138 mmol/L (135-145); Total Protein 7.5 g/dL (6.5-8.0)
== END 2024-09-03 07:23 | disposition home or self-care (01) ==
LOC: HO.LAB 07:22
PROVIDERS: PCP Physician Assistant; Visit Provider Physician Assistant
DX: R73.09 Other abnormal glucose (principal); I10 Essential (primary) hypertension
CPT/HCPCS: 36415; 80053; 83036; 85027

== ENCOUNTER 2024-09-03 07:22 | Outpatient (AMB) | payer OTHER, SELFPAY ==
--- NOTE | 2024-09-03 07:33 | A.OFFVIS_ITS ---
Vital Signs 09/03/24 07:36 Height 5 ft 4 in Weight 193 lb BMI 33.1 BP 126/94 H Blood Pressure Location Lt brachial Position Sitting Pulse 77 Pulse Oximetry (%) 97 Oxygen Delivery Method Room Air Intake Visit Reasons: GERD/Isabella alvarez 02/14/2022 Intake Note: Patient complex follow up for GERD/Isabella kim 02/14/2022 and last Colonoscopy by Dr. Muñiz on 07/08/2022 with 5 yrs recall. Patient cc: nauseas, abdominal pain with bloating, GERD with gasses, constipation, poor appetite and also patient said she is been feeling some palpitation on her abdomen when she lay down on her side. 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 Last visit with BENY Zapata 02/14/2022 for polyp surveillance colonoscopies. Pt is here today for nausea. She reports onset approx two months ago. States four months prior she began feeling a popping sensation, further describes as something is moving to epigastric region. Aggravated by side sleeping. She reports taking omeprazole 20 mg daily the past month with relief. Does occasionally take two tablets approx 3x/week. Shares PCP increased to 40 mg daily last week but has yet to start the new dose. Associated symptoms:pyrosis, regurgitation Aggravating factors:red meat, spicy + as above Alleviating attempts: As above Patient denies: fever/chills, vomiting , unintentional wt loss, dysphasia, or melena/hematochezia. She reports BM 2-3x/weeks, type 5 without laxative and type 6 with OTC laxtive prunelax-taken twice/week. common foods consumed: salad, eggs, pasta, potatoes, beef minimal vegetables fruit most days of the week drinks up 64 oz of water/day, daily coffee, gingerale occasionally. Social hx: social ETOH use denies recreational drug use non-smoker -family hx as below + denies gallbladder history denies personal hx of CA denies significant cardiopulmonary history PFS Medical History (Updated 09/03/24 @ 09:11 by Rosalva Mckay CNP) Constipation Nausea Chronic constipation TMJ (dislocation of temporomandibular joint) Low back pain Arthritis Anxiety Asthma Breast calcification, left Breast pain, left Breast lump Breast lump on right side at 3 o'clock position Surgical History H/O dilation and curettage History of colonoscopy History of hysteroscopy History of tubal ligation History of tonsillectomy History of section Family History Father No problems noted. 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[employer] Current occupational exposures/hazards: No Cognitive needs: No Hearing needs: No Vision needs: Yes Female Reproductive History Menstrual Age of Menarche: 13 Review of Systems Const Reports as per HPI ENT Reports as per HPI Card Reports as per HPI Resp Reports as per HPI GI Reports as per HPI Reports as per HPI Physical Exam Vital Signs: Last Vital Signs Pulse 77 09/03/24 07:36 BP 126/94 H 09/03/24 07:36 Pulse Ox 97 09/03/24 07:36 Oxygen Delivery Method Room Air 09/03/24 07:36 BMI result Body Mass Index 33.1 Const General: healthy appearing, no acute distress and well developed Nutritional Appearance: overweight Orientation/consciousness: patient oriented x3 HEENT Head: Yes normal to inspection, Yes normocephalic and Yes atraumatic Face and sinus: Yes normal facial exam Eyes General: appearance normal, both eyes and all related structures Neck Neck: Yes normal visual inspection Resp Effort & Inspection: normal respiratory effort, able to speak in complete sentences, no tracheal deviation and symmetric chest movement Auscultation: clear to auscultation bilaterally Cardio Jugular venous distension: no JVD Rate: regular rate Rhythm: regular rhythm Heart sounds: S1 normal heart sound present, S2 normal heart sound present, no gallops and no murmurs GI Inspection: Yes normal to inspection and No distended Palpation (GI): Soft to palpation, not firm, nontender and No hepatosplenomegaly present Auscultation: normal bowel sounds Neuro General: patient oriented x3 Gait exam (Neuro): Normal gait present Psych Appearance: grossly normal Mental Status: mental status grossly normal Speech and movement: Normal speech and movement present Affect: normal affect Attitude: cooperative Thought process: Normal thought process present Thought content: Normal thought content present Insight: Good insight present (Psych) Judgement: Good judgement present (Psych) Results Reviewed Results Reviewed: Date of Service: 07/21/23 Procedure(s): FL barium swallow with air EXAMINATION: XR FLUOROSCOPY UPPER GI WITH AIR CLINICAL INFORMATION: Reflux COMPARISON: None TECHNIQUE: Fluoroscopic air contrast upper GI examination was performed utilizing standard techniques with thin and thick barium and effervescent granules. Numerous spot images were obtained. FINDINGS: Dual and single contrast images of the esophagus demonstrate normal caliber, contour, and mucosal pattern. No evidence of stricture, mass, or ulcerations identified. Esophageal peristalsis is mildly disorganized. No hiatal hernia is identified. Significant gastroesophageal reflux is seen up to the thoracic inlet. Dual contrast and single contrast images of the stomach demonstrated normal contour. There is prominence of the rugal folds and prominence of the areae gastricae, suggesting possible gastritis. No evidence of mass, ulceration, or other abnormality. Contrast freely passed into the gastric antrum and duodenal bulb without delay. Single and air-contrast images of the duodenal bulb demonstrate no abnormality. The duodenal sweep has a normal appearance, course, and mucosal fold appearance. No malrotation. The imaged proximal jejunum has a normal fold pattern and caliber. FLUOROSCOPY TIME: 5 minutes Number of Spot Images: 16 Number of Cine: 9 DOSE AREA PRODUCT: 3737 uGy-m2 (microgray-meter squared) FL/FL barium swallow with air IMPRESSION: 1. Mildly disorganized esophageal peristalsis. 2. Significant gastroesophageal reflux. 3. Gastric mucosal findings which may suggest mild gastritis. --------- Date of Service: 07/08/22 Narrative: Pre-op diagnosis: Colon cancer screening, follow-up of colon polyps Post-op diagnosis:?other (Diverticulosis, hemorrhoids) Surgeon: Brenda Muñiz MD COLONOSCOPY TILL CECUM Procedure: The patient was placed in the left lateral decubitis position and pre-procedure medications were administered. After a digital rectal examination of the ano-rectum, the video colonoscope was inserted into the rectum and advanced through the colon to the cecum. The colonoscope was slowly withdrawn in a retrograde panoramic fashion and the colon mucosa was carefully examined including a retroflexed view of the rectum. Findings and interventions are described below. Procedure Difficulty: Without difficulty Findings: Terminal Ileum: Not evaluated Cecum: Examined carefully and appeared normal - no residual or recurrent polyp seen Ascending Colon: Normal Transverse Colon: Normal Descending Colon: Moderate diverticulosis Sigmoid Colon: Moderate diverticulosis Rectum: Normal Ano-rectum: Small internal hemorrhoids Colon preparation: Good after some irrigation Impression and Post Procedure Diagnosis: Colonoscopy Findings: No polyps were detected Moderate diverticulosis seen in the left colon Small hemorrhoids on retroflexed exam. Plan: Repeat Colonoscopy in 5 years (due to a hx of adenomatous colon polyps on colonoscopy in 2018). Assessment & Plan Assessment & Plan (1) GERD (gastroesophageal reflux disease): Code(s): K21.9 - Gastro-esophageal reflux disease without esophagitis Category: Medical Qualifiers: Esophagitis presence: without esophagitis Qualified Code(s): K21.9 - Gastro-esophageal reflux disease without esophagitis Plan: Noted as soon as significant on July 2023 barium swallow. Would like further evaluation with EGD, she is agreeable. Instructed to take the omeprazole 40 mg daily after completing H pylori testing. She can bridge with Pepcid and Carafate during the 2 week hold. She also understands to hold the Pepcid 24 hours before stool testing. Education on GERD prevention-Advised against heavy meals. Encouraged small frequent meals VS large meals, remaining upright after meals x 2-3 hours, avoid late night eating/spicy foods/caffeine/alcohol/known triggers and tight fitting clothes (2) Class 1 obesity: Code(s): E66.811 - Obesity, class 1 Category: Medical Plan: BMI 33.1. Discussion on lifestyle modifications to promote healthy weight: -Well-balanced diet -Adequate hydration with water -150 minutes of moderate intensity exercise per week (3) Nausea: Code(s): R11.0 - Nausea Category: Medical Plan: Etiology of symptoms unclear. Encouraged to complete H pylori testing-education as above. Encouraged to complete labs ordered by PCP, we will also obtain additional labs AND abdominal ultrasound to evaluate gallbladder and surrounding organs. (4) Constipation: Code(s): K59.00 - Constipation, unspecified Category: Medical Qualifiers: Constipation type: unspecified constipation type Qualified Code(s): K59.00 - Constipation, unspecified Plan: June 2022 colonoscopy with evidence of moderate diverticulosis in left colon without polyps. Recommendation for repeat in 5 years given adenomatous colon polyps found on 2018 colonoscopy. She will be due 2027. Stool pattern would benefit from improved regularity and bulking. Reinforced lifestyle modifications to promote regularity: -higher fiber diet, examples provided -adequate hydration with water -150 minutes of moderate intensity exercise per week Plan Follow-up in 8 weeks or sooner as needed Time: I spent a total of 45 minutes on the date of encounter which includes: Preparing to see the patient (reviewed previous documentation, test results and medical history) Performing a medically appropriate exam and/or evaluation Ordering medications, tests, and procedures Documenting clinical information in the health record Orders: Orders Lipase Today K21.9 - Gastro-esophageal reflux disease without esophagitis TSH reflex Free T4 Today K21.9 - Gastro-esophageal reflux disease without esophagitis US abdomen limited Today K21.9 - Gastro-esophageal reflux disease without esophagitis, R11.0 - Nausea Medications: New famotidine Take 1 tablet daily x2 weeks 40 mg PO DAILY 14 tabs 0RF sucralfate (Carafate) Take 1 tablet 3 times a day as needed 1 g PO TID 90 tabs 0RF Coding Level of Care Code Established Pt Est Pt Level 4 (49998) Patient Type Established Diagnoses Gastroesophageal reflux disease without esophagitis K21.9 Esophagitis presence: without esophagitis Class 1 obesity E66.811 Nausea R11.0 Constipation, unspecified constipation type K59.00 Constipation type: unspecified constipation type
[2024-09-03 07:36] VITALS: BP 126/94; PULSE 77; O2SAT 97; BMI 33.1
== END 2024-09-03 08:19 | disposition home or self-care (01) ==
LOC: HO.HGI 07:22
PROVIDERS: PCP Physician Assistant; Visit Provider Nurse Practitioner Family
DX: K21.9 Gastro-esophageal reflux disease without esophagitis (principal); E66.811 Obesity, class 1; R11.0 Nausea; K59.00 Constipation, unspecified
CPT/HCPCS: 99215

== ENCOUNTER 2024-09-28 08:16 | Outpatient (REF) | payer OTHER, SELFPAY ==
--- NOTE | ~2024-09-28 | US_ITS ---
CLINICAL HISTORY: R11.0 - Nausea --- Additional Notes or Special Instructions: evaluate gallstone, bi liary, etc. US abdomen limited Comparison: None Findings: The visualized pancreas is normal. The liver is normal in size and echotexture. There is no intrahepatic bile duct dilatation. The common duct is 9.1 mm in diameter. The gallbladder is normal. There is no sonographic Ozuna sign. The main portal vein is antegrade. The right kidney is 9.9 cm in length. No ascites. IMPRESSION: Gallbladder is unremarkable. Dilation of the CBD. This document has been electronically signed by: Tiffany Marie MD on 09/28/2024 15:56:03
--- OUTSIDE RECORDS SUMMARY | 2024-09-28 08:24 | XMS_ITS | Clinical Summary ---
Author Organization [facility] [place] [address] Phone Care Team Providers Care Technical Marketing Consultant Name Role Phone Abran Hidalgo Primary Care Provider [phone]- [phone] Allergies Active Allergy Reactions Criticality Noted Date [...] complete this topic Insurance [employer] Care Teams Technical Marketing Consultant Relationship Specialty Start Date End Date Abran Hidalgo PA PCP - General Physician Trout Farmer 05/29/24
== END 2024-09-28 08:17 | disposition home or self-care (01) ==
LOC: HO.HMGCX 08:16
PROVIDERS: PCP Physician Assistant; Visit Provider Nurse Practitioner Family
DX: R11.0 Nausea (principal); K21.9 Gastro-esophageal reflux disease without esophagitis
CPT/HCPCS: 76705

== ENCOUNTER → 2024-09-28 08:20 | Outpatient (BNV) | payer OTHER, SELFPAY | PROVIDERS: PCP Physician Assistant; Visit Provider Nuclear Medicine | DX: R11.0 Nausea (principal) | CPT/HCPCS: 76705 ==

== ENCOUNTER 2024-10-11 08:26 | Outpatient (REF) | payer OTHER, SELFPAY ==
--- OUTSIDE RECORDS SUMMARY | 2024-10-11 08:38 | XMS_ITS | Clinical Summary ---
Author Organization [facility] [place] [address] Phone Care Team Providers Care Police Cadet Name Role Phone Abran Hidalgo Primary Care Provider [phone]- [phone] Allergies Active Allergy Reactions Criticality Noted Date [...] complete this topic Insurance [employer] Care Teams Police Cadet Relationship Specialty Start Date End Date Abran Hidalgo PA PCP - General Physician Flash Developer 05/29/24
== END 2024-10-11 08:27 | disposition home or self-care (01) ==
LOC: HO.LNP 08:26
PROVIDERS: Visit Provider Physician Assistant
DX: K21.9 Gastro-esophageal reflux disease without esophagitis (principal)
CPT/HCPCS: 87338

== ENCOUNTER 2024-10-29 07:53 | Outpatient (AMB) | payer OTHER, SELFPAY ==
--- NOTE | 2024-10-29 07:55 | MHC.OFFVIS ---
Vital Signs 10/29/24 07:56 Height 5 ft 4 in Weight 193 lb BMI 33.1 BP 149/66 H Blood Pressure Location Lt brachial Position Sitting Pulse 87 Pulse Oximetry (%) 97 Oxygen Delivery Method Room Air Intake Visit Reasons: 8w GERD Nausea Intake Note: Patient 8 wks follow up for GERD/Nauseas, lab and abd US results. Patient cc: abdominal pain/bloating, burning sensation on her throat and constipation. Patient needed Omeprazole refill. Biomedical Engineering Technician Required: No Accompanied by: Self / Same As Patient Allergies hydromorphone (Dilaudid) Allergy (Intermediate, Verified 10/29/24 07:55) stomach upset, itching bupropion (From Wellbutrin) Adverse Reaction (Intermediate, Verified 10/29/24 07:55) hair loss Medication List - Last Reconciled 10/29/24 by Rosalva Mckay CNP albuterol sulfate 2.5 mg (3 mL) inhalation Q4-6H PRN albuterol sulfate 90 mcg/actuation 2 puffs inhalation Q4-6H PRN blood pressure test kit-medium testing once per day budesonide-formoterol 80-4.5 mcg/actuation (Symbicort) 2 puffs inhalation BID 30 days dextroamphetamine-amphetamine 20 mg ER 20 mg PO BID 28 days multivitamin 1 tab PO DAILY omeprazole 40 mg PO DAILY 90 days [zinc ] HPI HPI 8w GERD Nausea: Details: Patient is a 54-year-old female with PMH of asthma, arthritis, anxiety, ADHD and GERD. Misdalia present for follow up on nausea. She continues to experience nausea, which is aggravated by certain foods and fluids, including water. She uses omeprazole inconsistently for heartburn relief, typically around 4 days a week, but intends to start daily use as advised. She describes her nausea as a pre-sickness feeling without actual vomiting and has bloating and belching without regurgitation. Misdalia reports intermittent burning throat sensations that began at the start of the month, lasting 2-3 days and resolving on their own without dietary or activity changes. Constipation remains problematic, with BM frequency 2?3x/week unless using stimulant laxatives; stool consistency varies from loose (with 2 laxatives) to more regular (with 1 laxative + stool softener). Denies blood in stools Recent abdominal US showed mild dilation of the common bile duct; liver and gallbladder otherwise WNL. No recent medication changes. No new exposures or dietary triggers identified. She follows an intermittent fasting pattern, typically eating eggs for breakfast and salads for lunch, avoiding food after 2pm, and has reduced carbonated beverage intake. Social History: - Diet: Currently includes eggs for breakfast and salads for lunch; does not eat after lunch. - Alcohol/Tobacco/Drug Use: Does not drink alcohol regularly and consumes minimal carbonated drinks. 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 [facility] Medical History (Updated 10/29/24 @ 14:15 by Rosalva Mckay CNP) Common bile duct dilation Constipation Nausea Chronic constipation TMJ (dislocation of temporomandibular joint) Low back pain Arthritis Anxiety Asthma Breast calcification, left Breast pain, left Breast lump Breast lump on right side at 3 o'clock position Surgical History H/O dilation and curettage History of colonoscopy History of hysteroscopy History of tubal ligation History of tonsillectomy History of section Family History Father No problems noted. 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 Current occupational exposures/hazards: No Cognitive needs: No Hearing needs: No Vision needs: Yes Female Reproductive History Menstrual Age of Menarche: 13 Review of Systems Const Reports as per HPI ENT Reports as per HPI Card Reports as per HPI Resp Reports as per HPI GI Reports as per HPI Reports as per HPI Physical Exam Vital Signs: Last Vital Signs Pulse 87 10/29/24 07:56 BP 149/66 H 10/29/24 07:56 Pulse Ox 97 10/29/24 07:56 Oxygen Delivery Method Room Air 10/29/24 07:56 BMI result Body Mass Index 33.1 Const General: healthy appearing, no acute distress and well developed Nutritional Appearance: well nourished Orientation/consciousness: patient oriented x3 HEENT Head: Yes normal to inspection, Yes normocephalic and Yes atraumatic Face and sinus: Yes normal facial exam Eyes General: appearance normal, both eyes and all related structures Neck Neck: Yes normal visual inspection Resp Effort & Inspection: normal respiratory effort, able to speak in complete sentences, no tracheal deviation and symmetric chest movement Auscultation: clear to auscultation bilaterally Cardio Jugular venous distension: no JVD Rate: regular rate Rhythm: regular rhythm Heart sounds: S1 normal heart sound present, S2 normal heart sound present, no gallops and no murmurs GI Inspection: Yes normal to inspection, No distended and Yes obesity Palpation (GI): Soft to palpation, not firm, nontender and No hepatosplenomegaly present Auscultation: normal bowel sounds Neuro General: patient oriented x3 Gait exam (Neuro): Normal gait present Psych Appearance: grossly normal Mental Status: mental status grossly normal Speech and movement: Normal speech and movement present Affect: normal affect Attitude: cooperative Thought process: Normal thought process present Thought content: Normal thought content present Insight: Good insight present (Psych) Judgement: Good judgement present (Psych) Results Reviewed Results Reviewed: Date of Service: 09/28/24 Procedure(s): US abdomen limited Accession Number(s): [id number] cc: Abran Hidalgo PA-C; Rosalva Mckay GAS MAKER HELPER~ CLINICAL HISTORY: R11.0 - Nausea --- Additional Notes or Special Instructions: evaluate gallstone, biliary, etc. US abdomen limited Comparison: None Findings: The visualized pancreas is normal. The liver is normal in size and echotexture. There is no intrahepatic bile duct dilatation. The common duct is 9.1 mm in diameter. The gallbladder is normal. There is no sonographic Ozuna sign. The main portal vein is antegrade. The right kidney is 9.9 cm in length. No ascites. IMPRESSION: Gallbladder is unremarkable. Dilation of the CBD Assessment & Plan Assessment & Plan (1) GERD (gastroesophageal reflux disease): Code(s): K21.9 - Gastro-esophageal reflux disease without esophagitis Category: Medical Qualifiers: Esophagitis presence: without esophagitis Qualified Code(s): K21.9 - Gastro-esophageal reflux disease without esophagitis Plan: Persistent upper GI sx (burning, nausea, bloating, belching) despite inconsistent PPI use; prior swallow study showed severe GERD/gastritis; risk of complications (Salgado?s, esophagitis) warrants further evaluation. Additional Tests: Upper endoscopy (EGD) ordered to assess for mucosal injury, gastritis, or other pathology; pt to be contacted for scheduling. Medications: Omeprazole 20mg PO daily before breakfast; discontinue PRN use to optimize acid suppression. Encouraged to take omeprazole as prescribed, taken at least 30-60 minutes before a meal. Education on GERD prevention : -Advised against heavy meals; encouraged small, frequent meals instead of large ones. - Instructed to remain upright for 2?3 hours after eating. - Advised to avoid late-night meals, spicy foods, caffeine, alcohol, known dietary triggers, and tight-fitting clothing. - Emphasis placed on gradual implementation of lifestyle changes to improve adherence and symptom control. (2) Constipation: Code(s): K59.00 - Constipation, unspecified Category: Medical Qualifiers: Constipation type: unspecified constipation type Qualified Code(s): K59.00 - Constipation, unspecified Plan: Ongoing constipation with infrequent BMs, requiring stimulant laxatives; stool consistency variable; risk of laxative dependence and exacerbation of GI sx (including reflux) if not managed with safer agents. Additional Tests: None at this time; current focus on optimizing bowel regimen. Medications: Docusate sodium 200mg PO QHS; discontinue stimulant laxatives for routine use to avoid dependency and promote regularity. Reinforced lifestyle modifications to promote regularity: -higher fiber diet, examples provided -continue intermittent fasting if beneficial. Okay where she strong normal the her mom and the hi: Primary care referred for in the -adequate hydration with water -150 minutes of moderate intensity exercise per week (3) Common bile duct dilation: Code(s): K83.8 - Other specified diseases of biliary tract Category: Medical Plan: Recent US showed dilation of the common bile duct; etiology unclear; needs further evaluation. Spoke with the patient by phone following our visit to discuss alternative imaging for further evaluation of common bile duct dilation. Advised that an MRCP is the preferred study to rule out stones, cysts, or structural abnormalities. The patient is agreeable to the plan and understands she will be contacted to schedule the imaging Lifestyle Modifications: None specific; continue current dietary plan. Plan follow up after endoscopy or sooner as needed. Will contact pt if urgent findings. Time: I spent a total of 45 minutes on the date of encounter which includes: Preparing to see the patient (reviewed previous documentation, test results and medical history) Performing a medically appropriate exam and/or evaluation Ordering medications, tests, and procedures Documenting clinical information in the health record Orders: Orders MR MRCP Today K83.8 - Other specified diseases of biliary tract Medications: New docusate sodium Take two tablets at bedtime. 200 mg (2 x 100 mg) PO BID 180 caps 3RF constipation docusate sodium Take two tablets at bedtime. 200 mg (2 x 100 mg) PO BEDTIME 180 caps 3RF constipation Coding Level of Care Code Established Pt Est Pt Level 5 (89371) Patient Type Established Diagnoses Gastroesophageal reflux disease without esophagitis K21.9 Esophagitis presence: without esophagitis Constipation, unspecified constipation type K59.00 Constipation type: unspecified constipation type Common bile duct dilation K83.8
[2024-10-29 07:56] VITALS: BP 149/66; PULSE 87; O2SAT 97; BMI 33.1
--- OUTSIDE RECORDS SUMMARY | 2024-10-29 07:56 | XMS_ITS | Clinical Summary ---
Author Organization [facility] [place] [address] Phone Care Team Providers Care Diagnostic Sales Specialist Name Role Phone Abran Hidalgo Primary Care Provider [phone] Allergies Active Allergy Reactions Criticality Noted Date [...] 73 05/29/2024 3:39 AM EST Temperature 36.8 C (98.2 F) 05/28/2024 11:31 PM EST Respiratory Rate 18 05/29/2024 3:39 AM EST [...] complete this topic Insurance [employer] Care Teams Diagnostic Sales Specialist Relationship Specialty Start Date End Date Abran Hidalgo PA PCP - General Physician Tuber Machine Operator 05/29/24
== END 2024-10-29 09:07 | disposition home or self-care (01) ==
LOC: HO.HGI 07:53
PROVIDERS: PCP Physician Assistant; Visit Provider Nurse Practitioner Family
DX: K21.9 Gastro-esophageal reflux disease without esophagitis (principal); K59.00 Constipation, unspecified; K83.8 Other specified diseases of biliary tract
CPT/HCPCS: 99215

== ENCOUNTER 2024-10-29 07:53 | Outpatient (REF) | payer OTHER, SELFPAY ==
[2024-10-29 10:30] LABS: Lipase 30 U/L (8-78)
[2024-10-29 10:58] LABS: TSH reflex Free T4 0.48 uIU/mL (0.32-4.0)
== END 2024-10-29 07:54 | disposition home or self-care (01) ==
LOC: HO.LAB 07:53
PROVIDERS: PCP Physician Assistant; Visit Provider Nurse Practitioner Family
DX: K21.9 Gastro-esophageal reflux disease without esophagitis (principal)
CPT/HCPCS: 36415; 83690; 84443

== ENCOUNTER → 2024-11-09 07:19 | Outpatient (BNV) | payer OTHER, SELFPAY | PROVIDERS: PCP Physician Assistant; Visit Provider Radiology Diagnostic Radiology | DX: K83.8 Other specified diseases of biliary tract (principal) | CPT/HCPCS: 74181 ==

== ENCOUNTER 2024-11-09 07:20 | Outpatient (REF) | payer OTHER, SELFPAY ==
--- NOTE | ~2024-11-09 | MR_ITS ---
EXAMINATION: MRCP HISTORY: K83.8 - Other specified diseases of biliary tract COMPARISON: Correlation is made with an abdominal ultrasound dated 09/28/2024. TECHNIQUE: Axial gradient echo in and out of phase T1, axial T2 and fat suppressed T2, and coronal haste T2 with fat saturation images were obtained through the abdomen. 3D MRCP Reconstructed images and thick slab imaging of the biliary tree were obtained. FINDINGS: There is no significant signal loss within the liver on opposed phase imaging to suggest steatosis. There are subcentimeter T2 hyperintense foci in the left lobe of the liver which may represent cysts or hemangiomas. There is no intrahepatic biliary ductal dilatation. The gallbladder is unremarkable. No gallstones are identified. The common bile duct is prominent measuring up to 8 mm in diameter. No intraluminal filling defects are identified to suggest choledocholithiasis. The spleen and pancreas are unremarkable. The pancreatic duct is normal in caliber. The adrenals and kidneys are unremarkable. No retroperitoneal lymphadenopathy or ascites is identified in the upper abdomen. There is a duplicated inferior vena cava. The visualized bones demonstrate normal marrow signal intensity. MR/MR MRCP IMPRESSION: 1. Mildly dilated common bile duct as seen on abdominal ultrasound. No evidence of choledocholithiasis. 2. Subcentimeter cysts versus hemangiomas in the left lobe of the liver. Electronically signed by: Juan Ojeda MD 11/09/2024 08:21 AM EDT
--- OUTSIDE RECORDS SUMMARY | 2024-11-09 07:22 | XMS_ITS | Clinical Summary ---
Author Organization [facility] [place] [address] Phone Care Team Providers Care Boat Loader Helper Name Role Phone Abran Hidalgo Primary Care Provider [phone] Allergies Active Allergy Reactions Criticality Noted Date [...] complete this topic Insurance [employer] Care Teams Boat Loader Helper Relationship Specialty Start Date End Date Abran Hidalgo PA PCP - General Physician Melting Operator 05/29/24
--- OUTSIDE RECORDS SUMMARY | 2024-11-09 07:22 | XMS_ITS | Patient Health Record ---
Author Organization [facility] Address [address] [place] [address] Care Team Providers Care Claims Director Name Role Phone Virgilio (RETIRED) Dale SUAREZ [...] Start Date Coverage End Date MEDICARE OF [place] [address] [place] [id number] JOSI PIERCETIM Self - patient is the insured MEDICAID OF [facility] [address] [place] [phone] [id number] JOSI PIERCETIM Self - patient is the insured Medical (General) History Medical History History ICD Code hx of abdominal pain depression ADHD Surgical History Surgery Date(Month/Year) tubal ligation tonsillectomy
== END 2024-11-09 07:21 | disposition home or self-care (01) ==
LOC: HO.MRI 07:20
PROVIDERS: PCP Physician Assistant; Visit Provider Nurse Practitioner Family
DX: Z00.00 Encounter for general adult medical examination without abnormal findings (principal); K21.9 Gastro-esophageal reflux disease without esophagitis; K83.8 Other specified diseases of biliary tract; R73.09 Other abnormal glucose; F90.9 Attention-deficit hyperactivity disorder, unspecified type; E66.811 Obesity, class 1; Z68.33 Body mass index [BMI] 33.0-33.9, adult; R41.3 Other amnesia; Z71.3 Dietary counseling and surveillance
CPT/HCPCS: 74181; 96127

== ENCOUNTER 2024-11-09 08:56 | Outpatient (AMB) | payer OTHER, SELFPAY ==
--- NOTE | 2024-11-09 09:13 | MHC.PC.OV ---
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 Accompanied by: Self / Same As Patient Allergies hydromorphone (Dilaudid) Allergy (Intermediate, Verified 11/09/24 09:47) stomach upset, itching bupropion (From Wellbutrin) Adverse Reaction (Intermediate, Verified 11/09/24 09:47) hair loss Medication List - Last Reconciled 11/09/24 by Abran Hidalgo PA-C albuterol sulfate 2.5 mg (3 mL) inhalation Q4-6H PRN albuterol sulfate 90 mcg/actuation 2 puffs inhalation Q4-6H PRN blood pressure test kit-medium testing once per day budesonide-formoterol 80-4.5 mcg/actuation (Symbicort) 2 puffs inhalation BID 30 days dextroamphetamine-amphetamine 20 mg ER 20 mg PO BID 28 days docusate sodium 200 mg (2 x 100 mg) PO BEDTIME multivitamin 1 tab PO DAILY omeprazole 40 mg PO DAILY 90 days [zinc ] Tobacco use date assessed: 08/26/24 Dental Screening Dental Screen Date: 08/26/24 HPI Annual exam HPI Details Patient is a 54 year-old female here today for routine annual physical. Patient has a past medical history significant for moderate persistent asthma, ADHD, generalized anxiety disorder. .. ADHD: Was on Adderall 20 mg extended release in the past with good effect on her attention and focus. Has tried non stimulant ADHD medication (Strattera) though was not effective and caused side effect. She has stop Adderall medication for many months was found to be struggling in her job on her attention focus. Not able to keep focus on 1 task. She would like to return back to using Adderall or alternative medication to help her with her attention focus. Abdominal bloating and pain: Recent MRI abdomen showing mild bile duct dilation in a left lobe liver cyst. She is using PPI therapy for her GERD symptoms as she does history of GERD noted on upper barium swallow. .. Anxiety: Has been stable. Has not had to use any anxiety medication. .. Moderate persistent asthma: Has been fairly stable. Seldomly using her rescue inhalers. Denies any recent exacerbations in her asthma symptoms. Vaccines: Up-to-date with tetanus, pneumonia. Considering shingles Colon cancer screening: Colonoscopy done in 2022, no polyps though repeat 5 years due to history of polyps. 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 1. Little interest or pleasure in doing things: not at all 2. Feeling down, depressed, or hopeless: not at all 3. Trouble falling or staying asleep, or sleeping too much: not at all 4. Feeling tired or having little energy: not at all 5. Poor appetite or overeating: not at all 6. Feeling bad about yourself - or that you are a failure or have let yourself or your family down: not at all 7. Trouble concentrating on things, such as reading the newspaper or watching television: not at all 8. Moving or speaking so slowly that other people could have noticed. Or the opposite - being so fidgety or restless that you have been moving around a lot more than usual: not at all 9. Thoughts that you would be better off or of hurting yourself in some way: not at all Total score: 0 Depression Screening Interpretation: Negative Depression Screening Done: Yes 80538 - PHQ-9 Billing: Yes Source: Developed by Drs. Juan Marroquin, Zoë Barker, Carlos Mast and colleagues, with an educational geoffrey from [employer]. Thrive Questionnaire Date Thrive assessed: 11/09/24 I am a: Patient What is your living situation today?: I have a steady place to live Within the past 12 months, did the food you bought not last and you didn't have the money to get more?: I choose not to answer this question Within the past 12 months, did you worry whether your food would run out before you got money to buy more?: I choose not to answer this question Do you have trouble paying for medicines?: I choose not to answer this question Do you have trouble getting transportation to medical appointments?: I choose not to answer this question Do you have trouble paying your heating and electricity bill?: I choose not to answer this question Do you have trouble taking care of your child, family member or friend?: I choose not to answer this question Do you have trouble with day-to-day activities such as bathing, preparing meals, shopping, managing finances, etc.?: I choose not to answer this question Are you currently unemployed and looking for a job?: I choose not to answer this question Are you interested in more education?: I choose not to answer this question Please select the resources that you would like help with: None Currently or been in a relationship where the following occur: I choose not to answer THRIVE Score: 0 AUDIT C Alcohol Use Questionnaire (AUDIT-C) 1. How often do you have a drink containing alcohol?: Never 3. How often do you have six or more drinks on one occasion?: Never Total Score: 0 SOLIS-7 AMB Questionnaire SOLIS-7 Date SOLIS - 7 assessed: 11/09/24 Feeling nervous, anxious, or on edge: 0 = Not at all Not being able to stop or control worryin = Not at all Worrying too much about different things: 0 = Not at all Trouble relaxin = Not at all Being so restless that it is hard to sit still: 0 = Not at all Becoming easily annoyed or irritable: 0 = Not at all Feeling afraid as if something awful might happen: 0 = Not at all Total SOLIS-7 score (0-4 normal; 5-9 mild; 10-14 moderate; 15-21 severe): 0 Source: Developed by Drs. Juan Marroquin, Zoë Barker, Carlos Mast and colleagues, with an educational geoffrey from [employer]. SOLIS-7 Assessment Billing SOLIS-7 Assessment Tool: SOLIS-7 Assessment 90200 Review of Systems Const Denies body aches, Denies chills, Denies excessive sweating, Denies fatigue, Denies fever(s) and Denies headache(s) Eyes Denies blurry vision ENT Denies dysphagia, Denies vertigo, Denies dizziness, Denies headache(s), Denies hearing loss and Denies tinnitus Card Denies chest pain, Denies chest pain with activity, Denies syncope, Denies irregular heart rhythm and Denies dyspnea Resp Denies chest congestion, Denies cough, Denies hemoptysis, Denies dyspnea and Denies wheezing GI Denies abdominal pain, Denies melena, Denies hematochezia, Denies coffee ground emesis, Denies dysphagia, Denies diarrhea, Denies nausea and Denies vomiting Denies urinary frequency, Denies dysuria, Denies urinary hesitancy and Denies urinary urgency Musc Denies arthralgias, Denies limited range of motion, Denies muscle cramps and Denies muscle weakness Skin/Breast Denies rash and Denies skin ulcer Neuro Denies Abnormal speech present, Denies confusion, Denies vertigo, Denies dizziness, Denies syncope, Denies headache(s), Denies memory loss and Denies seizure-like activity Psych Denies anxiety, Denies confusion, Denies depression, Denies memory loss, Denies panic attacks and Denies paranoia Endo Denies excessive sweating, Denies fatigue, Denies flushing, Denies polydipsia and Denies polyuria Aller/Immun Denies wheezing Physical exam (Primary Care) Vital Signs: Last Vital Signs Temp 97.4 F 11/09/24 09:15 Pulse 98 11/09/24 09:15 BP 134/72 11/09/24 09:15 Pulse Ox 94 11/09/24 09:15 Oxygen Delivery Method Room Air 11/09/24 09:15 BMI result Body Mass Index 33.3 BMI Assessment/Plan discussion: High BMI High, discussed plan: lifestyle, weight reduction, dietary and physical activity Tobacco/Smoking Status: Tobacco use Status Tobacco use date assessed 08/26/24 11/09/24 09:14 Patient Tobacco Use Status Never used Tobacco 11/09/24 09:50 Tobacco use type Cigarette 11/09/24 09:50 e-Cigarette/Vaping Use Never Used 11/09/24 09:50 PHQ-9: PHQ-9 Score PHQ-9: Total score 0 11/09/24 09:49 Depression Screening Interpretation: Negative Thrive Assessment: Date of Thrive Assessment Date Thrive assessed 11/09/24 11/09/24 09:24 Currently or been in a relationship where the following occur: I choose not to answer Const General: cooperative, comfortable, no acute distress, alert and awake; No confusion Orientation/consciousness: oriented to person, oriented to place, patient oriented x3 and No confusion HENMT Head: Yes normocephalic Ears: external ears normal and TM's normal bilaterally Face and sinus: No sinus tenderness Mouth: Normal oral and palatal mucosa present and tongue normal Teeth and gingiva: dentition normal and gingiva normal Throat: Yes posterior oropharynx normal, Yes tonsils normal and Yes uvula midline Eyes Conjunctivae: conjunctivae normal Sclerae: sclerae normal Pupils: Equal, round and reactive pupils present EOM: EOMs intact bilaterally Direct Ophthalmoscopy: No no photophobia Neck Neck: Yes no lymphadenopathy, No tender and Yes no JVD Thyroid: Thyroid normal Carotids: no bruits Chest Chest palpation & inspection: no tenderness Resp Effort & Inspection: normal respiratory effort, no audible wheezes, not labored and no stridor Auscultation: no crackles, no rales, no rhonchi and no wheezes Cardio Jugular venous distension: no JVD Rate: regular rate, not bradycardic and not tachycardic Rhythm: regular rhythm Bruits: no carotid bruits Peripheral pulses: Peripheral pulses 2+ throughout GI Inspection: Yes normal to inspection, No abdominal wall ecchymosis and No visible herniation Palpation (GI): Soft to palpation, nontender, no guarding, not rigid and No hepatosplenomegaly present Auscultation: normoactive bowel sounds General: Yes no CVA tenderness Back/Spine/Pelvis Back: no CVA tenderness and No back tenderness Cervical Spine: cervical ROM normal Thoracic/Lumbar Spine: thoracic and lumbar spine normal to inspection, straight leg raise negative bilaterally, No thoraco-lumbar ROM limited and No lumbar spinal tenderness Skin Lesions: no lesions Rashes: no rashes Wounds: no wounds Neuro General: oriented to person, oriented to place, patient oriented x3, CN's II-XI intact bilaterally and No confusion Cranial nerves: Yes Equal, round and reactive pupils present and Yes Normal accommodation reflex present Cognition (Neuro): normal cognition Speech: No Abnormal speech present Gait exam (Neuro): Normal gait present Motor exam (neuro): 5/5 motor strength present throughout Extrem Right upper extremity: full ROM; no cyanosis Left upper extremity: full ROM; no cyanosis Right lower extremity: no edema Left lower extremity: no edema Psych Appearance: grossly normal Mental Status: mental status grossly normal Affect: normal affect Attitude: cooperative Thought process: Normal thought process present Coding Level of Care Code Est Pt Prev Care 40-64y(25524) Diagnoses Annual physical exam Z00.00 Gastroesophageal reflux disease without esophagitis K21.9 Esophagitis presence: without esophagitis Impaired glucose metabolism R73.09 Attention deficit hyperactivity disorder (ADHD), predominantly inattentive type F90.0 Attention deficit-hyperactivity disorder type: predominantly inattentive Class 1 obesity E66.811 Encounter for screening mammogram for malignant neoplasm of breast Z12.31 Breast cancer screening modality: mammogram Memory deficit R41.3 Additional Codes SOLIS-7 Assessment Billing - SOLIS-7 Assessment Tool: SOLIS-7 Assessment 64935 ([id number]) PHQ-9 - 72919 - PHQ-9 Billing: Yes ([id number]) Assessment & Plan Assessment & Plan (1) Annual physical exam: Code(s): Z00.00 - Encounter for general adult medical examination without abnormal findings Category: Medical Plan: as per HPI (2) GERD (gastroesophageal reflux disease): Code(s): K21.9 - Gastro-esophageal reflux disease without esophagitis Category: Medical Qualifiers: Esophagitis presence: without esophagitis Qualified Code(s): K21.9 - Gastro-esophageal reflux disease without esophagitis Plan: I plan to increase omeprazole to 40 mg daily taken in the morning on an empty stomach. Dietary changes to reduce GERD symptoms are discussed. She has followed up with Gastroenterology and MRI of abdomen was done showing mildly dilated bile fabiola and a liver cyst (3) Impaired glucose metabolism: Code(s): R73.09 - Other abnormal glucose Category: Medical Plan: I will perform further blood glucose testing, including an A1c, to assess diabetes risk. The patient's recent weight gain may influence her symptoms, and I advised dietary monitoring. Follow-up once testing is complete to determine appropriate interventions. (4) ADHD (attention deficit hyperactivity disorder): Code(s): F90.9 - Attention-deficit hyperactivity disorder, unspecified type Category: Medical Qualifiers: Attention deficit-hyperactivity disorder type: predominantly inattentive Qualified Code(s): F90.0 - Attention-deficit hyperactivity disorder, predominantly inattentive type Plan: The patient and I discussed alternative ADHD medications, including Vyvanse and Concerta, in case insurance does not authorize Adderall. Communication for prescriptions or further needs via the online portal is encouraged. (5) Class 1 obesity: Code(s): E66.811 - Obesity, class 1 Category: Medical Plan: Patient does understand her BMI is over 30 will work on being more physically active and adapting to better eating habits to reduce her weight (6) Breast cancer screening: Code(s): Z12.39 - Encounter for other screening for malignant neoplasm of breast Category: Medical Qualifiers: Breast cancer screening modality: mammogram Qualified Code(s): Z12.31 - Encounter for screening mammogram for malignant neoplasm of breast Plan: Patient is in need of a screening colonoscopy (7) Memory deficit: Code(s): R41.3 - Other amnesia Category: Medical Plan: Patient having hard time with her memory, she does not know if this is related to menopause or her uncontrolled ADHD at this time. 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 20 mg PO BID 56 caps 0RF 28 days F90.0 - Attention-deficit hyperactivity disorder, predominantly inattentive type Refilled dextroamphetamine-amphetamine 20 mg ER 20 mg PO BID 56 caps 0RF 28 days F90.0 - Attention-deficit hyperactivity disorder, predominantly inattentive type
[2024-11-09 09:15] VITALS: BP 134/72; PULSE 98; TEMP 36.3; O2SAT 94; BMI 33.3
== END 2024-11-09 10:07 | disposition home or self-care (01) ==
LOC: HO.HMCH 08:56
PROVIDERS: PCP Physician Assistant; Visit Provider Physician Assistant
DX: Z00.00 Encounter for general adult medical examination without abnormal findings (principal); K21.9 Gastro-esophageal reflux disease without esophagitis; R73.09 Other abnormal glucose; F90.0 Attention-deficit hyperactivity disorder, predominantly inattentive type; E66.811 Obesity, class 1; Z12.31 Encounter for screening mammogram for malignant neoplasm of breast; R41.3 Other amnesia

== ENCOUNTER 2024-11-11 11:29 | Day surgery (SDC) | payer OTHER, SELFPAY ==
--- OUTSIDE RECORDS SUMMARY | 2024-11-08 15:31 | XMS_ITS | Clinical Summary ---
Author Organization [facility] [place] [address] Phone Care Team Providers Care Dropper Tank Storage Name Role Phone Abran Hidalgo Primary Care Provider [phone] Allergies Active Allergy Reactions Criticality Noted Date [...] complete this topic Insurance [employer] Care Teams Dropper Tank Storage Relationship Specialty Start Date End Date Abran Hidalgo PA PCP - General Physician [place] Drilling Machine Operator 05/29/24
--- OUTSIDE RECORDS SUMMARY | 2024-11-08 15:31 | XMS_ITS | Patient Health Record ---
Author Organization [facility] Address [address] [place] [address] Care Team Providers Care Experimental Outboard Motors Mechanic Name Role Phone Virgilio (RETIRED) Dale SUAREZ Primary Care Provide r Lucy Mendez Jr, Dorian Unavailable Reason For Referral No Information Medications Medication SIG (Take, Route, Fr equency, Duration) Notes Start Date End Date Status 1 1 tablet Orally Thre e times a day for 30 day(s) 12/09/2011 Active Ativan .5mg Active Adderall 40mg Active Bentyl 20 MG 1 tablet Orally Two to Four times a day for 30 day(s) 11/01/2011 05/12/2024 Active Omeprazole 20 05/12/2024 05/12/2024 Acti ve Problems Problem Type SNOMED Code ICD Code Onset Dates Problem Status W/U Status Risk Notes Problem Abdominal pain, epigastric (789.06) Active confirmed Plan Of Treatment No Information Insurance Providers Payer Name Payer Address Payer Phone Subscriber Number Group Number Insured Name Patient Relationship to Insured Coverage Start Date Coverage End Date MEDICARE OF [place] [address] [place] [id number] [phone] [id number] JOSI PIERCETIM Self - patient is the insured MEDICAID OF [facility] [address] [place] [address] [id number] JOSI PIERCETIM Self - patient is the insured Medical (General) History Medical History History ICD Code hx of abdominal pain depression ADHD Surgical History Surgery Date(Month/Year) tubal ligation tonsillectomy
--- NOTE | 2024-11-10 09:05 | P.CONAN_ITS ---
Documented by User: Evy Kay NP 11/10/24 09:06 HPI - Anesthesia Eval Consult details Narrative: 54yo F for Upper Endoscopy PMFSH Active Problems Active Problems: All Active Problems Memory deficit (Acute) Annual physical exam (Acute) Common bile duct dilation (Acute) Constipation (Acute) Nausea (Acute) Class 1 obesity (Acute) Impaired glucose metabolism (Acute) Breast cancer screening (Acute) Asthma (Acute) HTN (hypertension) (Acute) GERD (gastroesophageal reflux disease) (Acute) Screening for diabetes mellitus (DM) (Acute) Tubular adenoma (Acute) Adult general medical exam (Acute) SOLIS (generalized anxiety disorder) (Acute) Rheumatoid factor positive (Acute) Polyarthralgia (Acute) ADHD (attention deficit hyperactivity disorder) (Acute) Moderate persistent asthma (Acute) Past Medical History Medical History Common bile duct dilation Constipation Nausea Chronic constipation TMJ (dislocation of temporomandibular joint) Low back pain Arthritis Anxiety Asthma Breast calcification, left Breast pain, left Breast lump Breast lump on right side at 3 o'clock position Family History Family History Father No problems noted. Mother Heart disease Diabetes Hypertension Hyperlipidemia Maternal Aunt Stroke Family/Other CAD (coronary artery disease) Maternal Aunt Colon cancer Sister Cancer Family history of problems with anesthesia: No Surgical History Surgical History History of esophagogastroduodenoscopy (EGD) H/O dilation and curettage History of colonoscopy History of hysteroscopy History of tubal ligation History of tonsillectomy History of section History of Problems with Anesthesia: No Social History Social History Housing: House Are you a primary day care teacher to a significant other at home: No Do you presently have visiting nurse or other home services: No Alcohol intake: current Alcohol intake frequency: holidays/special occasions only Alcohol type: wine Patient Tobacco Use Status: Never used Tobacco Tobacco use type: Cigarette e-Cigarette/Vaping Use: Never Used Second Hand Smoke Exposure: No Use of substances other than those prescribed or required for medical reasons: No Are you DNR?: No Advance Directives: No Advance Directives Information Provided: Yes service: No Current occupational status: employed 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[employer] Current occupational exposures/hazards: No Cognitive needs: No Hearing needs: No Vision needs: Yes Meds Allergies Allergy/AdvReac Type Severity Reaction Status Date / Time hydromorphone (Dilaudid) Allergy Intermediate stomach Verified 11/11/24 11:49 upset, itching bupropion (From Wellbutrin) AdvReac Intermediate hair loss Verified 11/11/24 11:49 Home Medications ?Medication ?Instructions ?Recorded ?Confirmed ?Last Taken ?Type multivitamin 1 tab PO DAILY 06/28/2206/05 Unknown History zinc 06/28/22 11/09/24 Unknown H istory Assessment and Plan Assessment Anesthesia Assessment: Chart Reviewed Final Anesthetic Review Family History of Problems with Anesthesia: No History of Problems with Anesthesia: No Documented by User: Anuja Oakes MD 11/11/24 12:04 [facility] Past Medical History Medical History Common bile duct dilation Constipation Nausea Chronic constipation TMJ (dislocation of temporomandibular joint) Low back pain Arthritis Anxiety Asthma Breast calcification, left Breast pain, left Breast lump Breast lump on right side at 3 o'clock position Family History Family History Father No problems noted. Mother Heart disease Diabetes Hypertension Hyperlipidemia Maternal Aunt Stroke Family/Other CAD (coronary artery disease) Maternal Aunt Colon cancer Sister Cancer Surgical History Surgical History History of esophagogastroduodenoscopy (EGD) H/O dilation and curettage History of colonoscopy History of hysteroscopy History of tubal ligation History of tonsillectomy History of section History of Problems with Anesthesia: No Social History Social History Housing: House Are you a primary day care teacher to a significant other at home: No Do you presently have visiting nurse or other home services: No Alcohol intake: current Alcohol intake frequency: holidays/special occasions only Alcohol type: wine Patient Tobacco Use Status: Never used Tobacco Tobacco use type: Cigarette e-Cigarette/Vaping Use: Never Used Second Hand Smoke Exposure: No Use of substances other than those prescribed or required for medical reasons: No Are you DNR?: No Advance Directives: No Advance Directives Information Provided: Yes service: No Current occupational status: employed 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[employer] Current occupational exposures/hazards: No Cognitive needs: No Hearing needs: No Vision needs: Yes Meds Allergies Allergy/AdvReac Type Severity Reaction Status Date / Time hydromorphone (Dilaudid) Allergy Intermediate stomach Verified 11/11/24 11:49 upset, itching bupropion (From Wellbutrin) AdvReac Intermediate hair loss Verified 11/11/24 11:49 Home Medications ?Medication ?Instructions ?Recorded ?Confirmed ?Last Taken ?Type multivitamin 1 tab PO DAILY 06/28/2206/05 Unknown History zinc 06/28/22 11/09/24 Unknown H istory Exam Airway Mallampati Class: II TM Dist: >3cm Neck ROM: Full Loose/Missing/Broken Teeth: No Heart: RRR Lungs: CTA Assessment and Plan Assessment Anesthesia Assessment: Anesthesia Plan Discussed Final Anesthetic Review History of Problems with Anesthesia: No NPO: Yes ASA Class: II Final Preanesthetic Review: Meds/Allgs Chart Reviewed, Consent Obtained/Reviewed and Anes Risks/Benef Reviewed Patient Risk: Low Procedure Risk: Intermediate Anesthetic Plan Anesthetic Plan: MAC: Disposition: Standard PACU
[2024-11-11 11:39] VITALS: BMI 33.3
[2024-11-11 11:44] VITALS: BP 142/68; PULSE 62; RESP 15; TEMP 36.4; O2SAT 95
[2024-11-11] MEDS: Lactated Ringers 1,000 ML 100 ML IVCONT (11:56)
--- NOTE | 2024-11-11 12:05 | MHC.SHP ---
Pre-Procedural Eval Section A - 24 Hr Update-Section A only Date of Service: 11/11/24 Section B - Complete if H&P > 30 days Chief Complaint: gerd Relevant Family History (Specify if Yes): No Relevant Social History: None Present Medications: see Short Stay Collaborative assessment Medical History: Significant History (ommon bile duct dilation Constipation Nausea Chronic constipation TMJ (dislocation of temporomandibular joint) Low back pain Arthritis Anxiety Asthma Breast calcification, left Breast pain, left Breast lump Breast lump on right side at 3 o'clock position) History of Previous Operations: Relevant previous surgery/procedure and date(s) (History of esophagogastroduodenoscopy (EGD) H/O dilation and curettage History of colonoscopy History of hysteroscopy History of tubal ligation History of tonsillectomy History of section) Allergies: Allergies Allergy/AdvReac Type Severity Reaction Status Date / Time hydromorphone (Dilaudid) Allergy Intermediate stomach Verified 11/11/24 11:49 upset, itching bupropion (From Wellbutrin) AdvReac Intermediate hair loss Verified 11/11/24 11:49 Review of Systems Sugical H&P ROS: Negative: Constitution, Cardiovascular, Respiratory, Neurological, Psychiatric, Hem-Onc, Allergic/Immunologic, Gastrointestinal, Genitourinary, Musculoskeletal, Integumentary, Endocrine and Eyes/Ears/Nose/Throat Exam Surgical H&P Exam: Normal: HEENT, Normal: Heart, Normal: Lungs, Normal: Extremities, Normal: Abdomen, Normal: Skin and Normal: Neurological Plan Diagnosis/Plan: Unchanged I have reviewed the history and physical and performed a pertinent physical examination on my patient. No changes have occurred unless specified. Time Spent With Patient Time: Total time managing care of this patient today ____ minutes.
--- NOTE | 2024-11-11 12:33 | W.PM.OPN ---
Operative Note Operative Note Date of Service: 11/11/24 Narrative: Procedure Description: EGD Indication: GERD Anesthesia: MAC FLEXIBLE TRANSORAL UPPER GASTROINTESTINAL ENDOSCOPY UPPER ENDOSCOPY Consent: Indications for the procedure and potential complications of bleeding, perforation, reaction to medications and missed diagnosis were discussed with the patient and informed consent was obtained. Instrument: Olympus GIF H 190 J mid size upper endoscope Monitoring: Vital signs and clinical assessment, continuous EKG monitoring, Pulse oximetry, Carbon Dioxide monitoring and blood pressure monitoring were done throughout the procedure. Procedure: The patient was placed in the left lateral decubitis position and pre-procedure medications were administered and a bite block was placed. The endoscope was inserted into the mouth and advanced under direct vision to the third part of duodenum. A careful inspection was made as the upper endoscope was withdrawn including a retroflexed examination of the proximal stomach; Findings and interventions are described below. Findings: Larynx:normal Esophagus: GE junction at 35 cm, diaphragm hiatus at 35 cm, normal mucosa --bx taken from GEJ, distal and proximal areas Stomach: patchy streaky gastritis with patchy areas of scarring . Biopsies were obtained. Grade 2 flap valve on retroflexed examination of the cardia. Duodenum: Normal bulb and descending duodenum, bx taken Intervention: Biopsies as noted above, Impression/Findings: gastritis PLAN: await bx, change PPI GERD precautions
[2024-11-11 12:37] VITALS: BP 113/50; PULSE 80; RESP 18; TEMP 36.2; O2SAT 96
[2024-11-11 12:47] VITALS: BP 106/59; PULSE 71; RESP 18; O2SAT 94
[2024-11-11 12:54] VITALS: BP 116/70; PULSE 65; RESP 18; TEMP 36.1; O2SAT 97
== END 2024-11-11 13:15 | disposition home or self-care (01) ==
PROVIDERS: PCP Physician Assistant; Visit Provider Internal Medicine Gastroenterology
PROC: 0DJ08ZZ Inspection of Upper Intestinal Tract, Via Natural or Artificial Opening Endoscopic (ICD-10-PCS; CPT 43235; principal; 2024-11-11 12:50)
DX: K21.9 Gastro-esophageal reflux disease without esophagitis (principal); K29.60 Other gastritis without bleeding; J45.909 Unspecified asthma, uncomplicated; K83.8 Other specified diseases of biliary tract; Z79.899 Other long term (current) drug therapy
CPT/HCPCS: 43239; 88305; 88313; 88342; J2003; J2704

== ENCOUNTER → 2024-11-11 11:29 | Outpatient (BNV) | payer OTHER, SELFPAY | PROVIDERS: PCP Physician Assistant; Visit Provider Internal Medicine Gastroenterology | DX: K21.9 Gastro-esophageal reflux disease without esophagitis (principal); K29.70 Gastritis, unspecified, without bleeding | CPT/HCPCS: 43239 ==

== ENCOUNTER 2025-05-02 11:15 | Outpatient (AMB) | payer OTHER, SELFPAY ==
[2025-05-02 11:24] VITALS: BP 114/78; PULSE 66; O2SAT 97; BMI 35.1
--- NOTE | 2025-05-02 11:24 | A.OFFPC_ITS ---
Vital Signs 05/02/25 11:24 Height 5 ft 4 in Weight 204 lb 4 oz BMI 35.1 BP 114/78 Blood Pressure Location Lt brachial Position Sitting Pulse 66 Pulse Source Pulse Oximeter Pulse Oximetry (%) 97 Oxygen Delivery Method Room Air Intake Visit Reasons: f/u ADHD Financial Sales Representative Required: No Accompanied by: Self / Same As Patient Allergies hydromorphone (Dilaudid) Allergy (Intermediate, Verified 05/02/25 11:30) stomach upset, itching bupropion (From Wellbutrin) Adverse Reaction (Intermediate, Verified 05/02/25 11:30) hair loss Medication List - Last Reconciled 05/02/25 by Abran Hidalgo PA-C albuterol sulfate 2.5 mg (3 mL) inhalation Q4-6H PRN albuterol sulfate 90 mcg/actuation 2 puffs inhalation Q4-6H PRN blood pressure test kit-medium testing once per day budesonide-formoterol 80-4.5 mcg/actuation (Symbicort) 2 puffs inhalation BID 30 days dextroamphetamine-amphetamine 20 mg ER (Adderall XR) 20 mg PO DAILY 28 days docusate sodium 200 mg (2 x 100 mg) PO BEDTIME esomeprazole magnesium 40 mg PO DAILY multivitamin 1 tab PO DAILY omeprazole 40 mg PO DAILY 90 days ondansetron 8 mg PO Q12H PRN 7 days [zinc ] Tobacco use date assessed: 05/02/25 Dental Screening Dental Screen Date: 05/02/25 Did you have a dental visit in the last 12 months?: Yes Did you have a dental problem in the last 6 months where you did not have access to dental care?: No Was dental information given to patient?: Patient has dentist HPI f/u ADHD HPI Details Patient is a 55 year-old female here today for follow-up visit. Patient has a past medical history significant for moderate persistent asthma, ADHD, generalized anxiety disorder. .. ADHD: Was on Adderall 20 mg extended release in the past with good effect on her attention and focus. Has tried non stimulant ADHD medication (Strattera) though was not effective and caused side effect. Unfortunately pharmacies have not been able to dispense her Adderall due to shortage. She is willing to try an alternative stimulant ADHD medication as she has been having difficulties at work with a attention and focus. GERD: She continues with PPI therapy. She was previously found to have a dilation of the bile duct. She has severe GERD, which is exacerbated by coffee, and notorious chronic constipation, someti mes going a week without a bowel movement despite taking stool softeners twice daily and a laxative. She previously tested negative for H. pylori. .. Chronic fatigue-- attributes to being Postmenopausal. .. Class 2 obesity: Unfortunately has gained weight since last office visit. She again attributes her weight gain to being menopausal. She is not too physically active as she feels chronically fatigued. .. Anxiety: Has been stable. Has not had to use any anxiety medication. .. Moderate persistent asthma: Has been fairly stable. Seldomly using her rescue inhalers. Denies any recent exacerbations in her asthma symptoms. [facility] Medical History Common bile duct dilation Constipation Nausea Chronic constipation TMJ (dislocation of temporomandibular joint) Low back pain Arthritis Anxiety Asthma Breast calcification, left Breast pain, left Breast lump Breast lump on right side at 3 o'clock position Surgical History History of esophagogastroduodenoscopy (EGD) H/O dilation and curettage History of colonoscopy History of hysteroscopy History of tubal ligation History of tonsillectomy History of section Family History Father No problems noted. Mother Heart disease Diabetes Hypertension Hyperlipidemia Maternal Aunt Stroke Family/Other CAD (coronary artery disease) Maternal Aunt Colon cancer Sister Cancer Social History Housing: House Are you a primary customer care professional to a significant other at home: No Do you presently have visiting nurse or other home services: No Alcohol intake: current Alcohol intake frequency: holidays/special occasions only Alcohol type: wine Patient Tobacco Use Status: Never used Tobacco Tobacco use type: Cigarette e-Cigarette/Vaping Use: Never Used Second Hand Smoke Exposure: No service: No Current occupational status: employed 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 1. Little interest or pleasure in doing things: not at all 2. Feeling down, depressed, or hopeless: not at all 3. Trouble falling or staying asleep, or sleeping too much: not at all 4. Feeling tired or having little energy: not at all 5. Poor appetite or overeating: not at all 6. Feeling bad about yourself - or that you are a failure or have let yourself or your family down: not at all 7. Trouble concentrating on things, such as reading the newspaper or watching television: not at all 8. Moving or speaking so slowly that other people could have noticed. Or the opposite - being so fidgety or restless that you have been moving around a lot more than usual: not at all 9. Thoughts that you would be better off or of hurting yourself in some way: not at all Total score: 0 Source: Developed by Drs. Juan Marroquin, Zoë Barker, Carlos Mast and colleagues, with an educational geoffrey from [employer]. Thrive Questionnaire Date Thrive assessed: 05/02/25 I am a: Patient What is your living situation today?: I have a steady place to live Within the past 12 months, did the food you bought not last and you didn't have the money to get more?: I choose not to answer this question Within the past 12 months, did you worry whether your food would run out before you got money to buy more?: I choose not to answer this question Do you have trouble paying for medicines?: I choose not to answer this question Do you have trouble getting transportation to medical appointments?: I choose not to answer this question Do you have trouble paying your heating and electricity bill?: I choose not to answer this question Do you have trouble taking care of your child, family member or friend?: I choose not to answer this question Do you have trouble with day-to-day activities such as bathing, preparing meals, shopping, managing finances, etc.?: I choose not to answer this question Are you currently unemployed and looking for a job?: I choose not to answer this question Are you interested in more education?: I choose not to answer this question Please select the resources that you would like help with: None Currently or been in a relationship where the following occur: I choose not to answer THRIVE Score: 0 AUDIT C Alcohol Use Questionnaire (AUDIT-C) 1. How often do you have a drink containing alcohol?: Never 3. How often do you have six or more drinks on one occasion?: Never Total Score: 0 SOLIS-7 AMB Questionnaire SOLIS-7 Date SOLIS - 7 assessed: 05/02/25 Feeling nervous, anxious, or on edge: 0 = Not at all Not being able to stop or control worryin = Not at all Worrying too much about different things: 0 = Not at all Trouble relaxin = Not at all Being so restless that it is hard to sit still: 0 = Not at all Becoming easily annoyed or irritable: 0 = Not at all Feeling afraid as if something awful might happen: 0 = Not at all Total SOLIS-7 score (0-4 normal; 5-9 mild; 10-14 moderate; 15-21 severe): 0 Source: Developed by Drs. Juan Marroquin, Zoë Barker, Carlos Mast and colleagues, with an educational geoffrey from [employer]. SOLIS-7 Assessment Billing SOLIS-7 Assessment Tool: SOLIS-7 Assessment 04075 Review of Systems Const Denies headache(s) Eyes Denies loss of vision ENT Denies vertigo, Denies dizziness, Denies headache(s) and Denies sore throat Card Denies chest pain, Denies leg edema and Denies lightheadedness Resp Denies cough, Denies hemoptysis and Denies wheezing GI Denies abdominal pain, Denies melena, Denies constipation, Denies diarrhea and Denies vomiting Denies urinary frequency, Denies dysuria and Denies urinary urgency Musc Denies arthralgias, Denies joint swelling, Denies numbness and Denies tingling Neuro Denies Abnormal speech present, Denies behavioral changes, Denies vertigo, Denies dizziness, Denies headache(s), Denies loss of vision, Denies memory loss, Denies numbness and Denies tingling Psych Denies anxiety, Denies behavioral changes, Denies depression, Denies memory loss and Denies panic attacks Ghanshyam/Lymph Denies easy bleeding and Denies easy bruising Aller/Immun Denies wheezing Physical exam (Primary Care) Vital Signs: Last Vital Signs Pulse 66 05/02/25 11:24 BP 114/78 05/02/25 11:24 Pulse Ox 97 05/02/25 11:24 Oxygen Delivery Method Room Air 05/02/25 11:24 BMI result Body Mass Index 35.1 Tobacco/Smoking Status: Tobacco use Status Tobacco use date assessed 05/02/25 05/02/25 11:28 Patient Tobacco Use Status Never used Tobacco 05/02/25 11:28 Tobacco use type Cigarette 05/02/25 11:28 e-Cigarette/Vaping Use Never Used 05/02/25 11:28 PHQ-9: PHQ-9 Score PHQ-9: Total score 0 05/02/25 11:34 Thrive Assessment: Date of Thrive Assessment Date Thrive assessed 05/02/25 05/02/25 11:28 Currently or been in a relationship where the following occur: I choose not to answer Const General: healthy appearing, no acute distress, alert and awake Nutritional Appearance: well nourished Orientation/consciousness: oriented to person, oriented to place and oriented to time HENMT Ears: TM's normal bilaterally General nose exam: Normal nasal mucous membranes and turbinates present Eyes Conjunctivae: conjunctivae normal Sclerae: sclerae normal Pupils: Equal, round and reactive pupils present Neck Neck: Yes no lymphadenopathy and Yes no JVD Thyroid: Thyroid normal Carotids: no bruits Resp Effort & Inspection: normal respiratory effort and not tachypneic Auscultation: no crackles, no rales, no rhonchi and no wheezes Cardio Rate: regular rate Rhythm: regular rhythm Heart sounds: no murmurs and normal S1 and S2 GI Palpation (GI): Soft to palpation, nontender, no hepatomegaly and no splenomegaly Auscultation: normal bowel sounds Skin General skin exam: no rashes or lesions noted and dry skin Neuro General: oriented to person, oriented to place and oriented to time Cranial nerves: Yes Equal, round and reactive pupils present Speech: No Abnormal speech present Gait exam (Neuro): Normal gait present Motor exam (neuro): no tremor noted Extrem Right upper extremity: full ROM Left upper extremity: full ROM Right lower extremity: full ROM; no edema Left lower extremity: full ROM; no edema Psych Mental Status: mental status grossly normal Speech and movement: Normal speech and movement present Affect: normal affect Attitude: cooperative Thought process: Normal thought process present Coding Level of Care Code Est Pt Level 4 (26186) Diagnoses Gastroesophageal reflux disease without esophagitis K21.9 Esophagitis presence: without esophagitis Attention deficit hyperactivity disorder (ADHD), predominantly inattentive type F90.0 Attention deficit-hyperactivity disorder type: predominantly inattentive Class 1 obesity E66.811 Constipation, unspecified constipation type K59.00 Constipation type: unspecified constipation type Additional Codes SOLIS-7 Assessment Billing - SOLIS-7 Assessment Tool: SOLIS-7 Assessment 58907 ([id number]) Assessment & Plan Assessment & Plan (1) GERD (gastroesophageal reflux disease): Code(s): K21.9 - Gastro-esophageal reflux disease without esophagitis Category: Medical Qualifiers: Esophagitis presence: without esophagitis Qualified Code(s): K21.9 - Gastro-esophageal reflux disease without esophagitis Plan: I plan to increase omeprazole to 40 mg daily taken in the morning on an empty stomach. Dietary changes to reduce GERD symptoms are discussed. She has followed up with Gastroenterology and MRI of abdomen was done showing mildly dilated bile duct and a liver cyst (2) ADHD (attention deficit hyperactivity disorder): Code(s): F90.9 - Attention-deficit hyperactivity disorder, unspecified type Category: Medical Qualifiers: Attention deficit-hyperactivity disorder type: predominantly inattentive Qualified Code(s): F90.0 - Attention-deficit hyperactivity disorder, predominantly inattentive type Plan: I discussed the ongoing difficulty the patient has had in obtaining her Adderall prescription due to national shortages and insurance issues. We reviewed alternative stimulants, and she agreed to a trial of Vyvanse to assess for efficacy and better availability. I will prescribe a two-week supply of Vyvanse 20 mg and have instructed her to follow up via the patient portal regarding her response. (3) Class 1 obesity: Code(s): E66.811 - Obesity, class 1 Category: Medical Plan: Patient does understand her BMI is over 30 will work on being more physically active and adapting to better eating habits to reduce her weight (4) Constipation: Code(s): K59.00 - Constipation, unspecified Category: Medical Qualifiers: Constipation type: unspecified constipation type Qualified Code(s): K59.00 - Constipation, unspecified Plan: We also addressed her severe, chronic constipation. I suggested a trial of Linzess as a potential alternative to her current regimen of stool softeners and laxatives, and I will send a prescription for her to try. Orders: Orders Hemoglobin A1c Today R73.09 - Other abnormal glucose Vitamin D 25-OH Total Today R53.83 - Other fatigue Complete Blood Count Auto Diff Today K21.9 - Gastro-esophageal reflux disease without esophagitis Comprehensive [place]. Panel Fast Today I10 - Essential (primary) hypertension Lipid Panel Today I10 - Essential (primary) hypertension Vitamin B12 and Folate Today E53.8 - Deficiency of other specified B group vitamins, R53.83 - Other fatigue Medications: New linaclotide (Linzess) 145 mcg PO DAILY 30 caps 1RF 30 days K59.00 - Constipation, unspecified lisdexamfetamine (Vyvanse) Partial Fill upon patient request. 20 mg PO DAILY 14 caps 0RF 14 days F90.0 - Attention-deficit hyperactivity disorder, predominantly inattentive type Discontinued dextroamphetamine-amphetamine 20 mg ER (Adderall XR) Partial Fill upon patient request. Discontinued Reason: Doctor's Order 20 mg PO DAILY 28 days 28 caps 0RF F90.0 - Attention-deficit hyperactivity disorder, predominantly inattentive type
--- OUTSIDE RECORDS SUMMARY | 2025-05-02 14:22 | XMS_ITS | Patient Health Record ---
Author Organization [facility] Address [address] [place] [address] Care Team Providers Care Optomechanical Engineer Name Role Phone Virgilio (RETIRED) Dale SUAREZ Primary Care Provide r Lucy Mendez Jr, Dorian Unavailable [phone] Reason For Referral No Information Medications Medication SIG (Take, Route, Fr equency, Duration) Notes Start Date End Date Status 1 Tablet 1 tablet Orally Thre e times a day; Duration: 30 day(s) 12/09/2011 Active Ativan .5mg Active Adderall 40mg Active Bentyl 20 MG Tablet 1 tablet Orally Two to Four times a day; Duration: 30 day(s) 11/01/2011 Active Omeprazole 20 Acti ve Social History Social History Additional Details Category Social Info Options Details Miscellaneous: Marital status: Occupation: unemployed Problems Problem Type SNOMED Code ICD Code Onset Dates Problem Status W/U Status Risk Notes Problem Epigastric pain (32506177) Abdominal pain, epigastric (789.06) Active confirmed Plan Of Treatment No Information Insurance Providers Payer Name Payer Address Payer Phone Subscriber Number Group Number Insured Name Patient Relationship to Insured Coverage Start Date Coverage End Date MEDICARE OF [place] [address] [place] [id number] PIERCE PRATERBEABarbara Self - patient is the insured MEDICAID [facility] [address] [place] [phone] [id number] PIERCE PRATERBEABarbara Self - patient is the insured Medical (General) History Medical History History ICD Code hx of abdominal pain depression ADHD Surgical History Surgery Date(Month/Year) tubal ligation tonsillectomy
--- OUTSIDE RECORDS SUMMARY | 2025-05-02 14:22 | XMS_ITS | Clinical Summary ---
Author Organization [facility] [address] Phone Care Team Providers Care Commercial Cleaner Name Role Phone Abran Hidalgo Primary Care Provider [phone] Allergies Active Allergy Reactions Criticality Noted Date [...] AM EST Sexual Orientation Not on file Last Filed Vital Signs Vital Sign Reading [...] Last Done Comments Breast Cancer Screening 1972 Colorectal Cancer Screening: Colonoscopy 1972 DTaP,Tdap,and Td Vaccines (1 - Tdap) 02/01/1991 Hepatitis B Vaccines (1 of 3 - 19+ 3-dose series) 02/01/1991 Cervical Cancer Screening: P ap Smear 02/01/1993 Pneumococcal Vaccine: 50+ Ye ars (1 of 1 - PCV) 02/01/2022 Zoster Vaccines (1 of 2) 02/01/2022 Depression Screening 05/12/2024 HIV Screening 05/29/2024 Hepatitis C Screening 05/29/2024 Social Influencers of Health Screening 05/29/2024 COVID-19 Vaccine (1 - 2024-2 6 season) 2025 Influenza Vaccine (#1) 2025 RSV Immunization Adult Patie nts (1 - 1-dose 75+ series) 02/01/2047 HIB Vaccines Aged Out No longer eligi [...] complete this topic Insurance [employer] Care Teams Commercial Cleaner Relationship Specialty Start Date End Date Abran Hidalgo PA PCP - General Physician Sound Mixer 05/29/24
--- OUTSIDE RECORDS SUMMARY | 2025-05-02 14:22 | XMS_ITS | Clinical Summary ---
Author Organization [facility] Address [address] [place] [id number] Phone Care Team Providers Care Supervisor Frame Assembly Name Role Phone Abran Hidalgo Primary Care Provider + Allergies Active Allergy Reactions Criticality Noted Date Comments Bupropion Hcl 11/08/2021 Hair loss Hydromorphone GI Upset 11/08/2021 Medications albuterol 2.5 mg /3 mL (0.083 %) nebulizer solution INHALE 1 VIAL VIA NEBULIZER EVERY 4-6 HOURS NEEDED FOR SHORTNESS OF BREATH OR WHEEZING 2 Active ADDERALL XR 20 mg 24 hr capsule Take 1 capsule by mouth daily. 2 Active Family History Medical History Relation Comments Stroke Maternal Aunt Diabetes Mother Heart disease Mother Hyperlipidemia Mother Hypertension Mother Relation Status Comments Brother Father Maternal Aunt Mother Paternal Grandfather Sister Social History Tobacco Use Types Packs/Day Years Used Date Smoking Tobacco: Never Assessed Education Answer Date Recorded Are you interested in more education? Not on damien e 09/06/2022 Are you concerned about learning? Not on file 09/06/2022 No 09/06/2022 No 09/06/2022 Digital Access Answer Date Recorded No 10/05/2022 No 10/05/2022 Reliable internet access at home? Not on file 10/05/2022 Device with a working camera? Not on file Comments Unknown Sex and Gender Information Value Date Recorded Sex Assigned at Not on file Legal Sex Female 9:32 PM EDT Gender Identity Not on file Sexual Orientation Not on file Plan of Treatment Health Maintenance Due Date Last Done Comments Adult Td,Tdap Booster 1972 LIPID PANEL 1972 DEPRESSION SCREENING 1984 SMOKING Hx and SMOKELESS TOB ACCO SCREENING 02/01/1985 HEPATITIS C SCREENING 02/01/1990 HIV ONE-TIME SCREENING (18-6 5 YEARS) 02/01/1990 PAP SMEAR 02/01/1993 MAMMOGRAM 2012 COLOGUARD 02/01/2017 COLONOSCOPY 02/01/2017 COLORECTAL CANCER SCREENING 02/01/2017 FIT TEST 02/01/2017 FOBT 02/01/2017 SIGMOIDOSCOPY 02/01/2017 VIRTUAL COLONOSCOPY 02/01/2017 PNEUMOCOCCAL VACCINES (50+ y ears) (1 of 1 - PCV) 02/01/2022 ZOSTER VACCINES (1 of 2) 02/01/2022 INFLUENZA VACCINE (#1) 2024 COVID-19 VACCINE (1 - 2024-2 6 season) 2025 RSV VACCINE (1 - 1-dose 75+ series) 02/01/2047 HEPATITIS A VACCINES Aged Out No long er eligible based on patient's age to complete this topic HIB VACCINES Aged Out No longer eligi ble based on patient's age to complete this topic MENINGOCOCCAL VACCINES (ACWY) Aged Out No longer eligible based on patient's age to complete this topic MENINGOCOCCAL VACCINES (B) Aged Out N o longer eligible based on patient's age to complete this topic Medical Devices Not on file [facility] [place] [place] [address] [place] [address] HMO POS [facility]MO POS [facility]MO POS [facility] HMO POS [facility] HMO [place] [facility] Care Teams Supervisor Frame Assembly Relationship Specialty Start Date End Date Abran Hidalgo PA [address] [place] [address] PCP - General 05/30/21 Additional Source Comments The information contained in this document represents components of the legal health record. It is not the complete legal health record.[facility]
== END 2025-05-02 11:53 | disposition home or self-care (01) ==
LOC: HO.HMCH 11:16
PROVIDERS: PCP Physician Assistant; Visit Provider Physician Assistant
DX: K21.9 Gastro-esophageal reflux disease without esophagitis (principal); F90.0 Attention-deficit hyperactivity disorder, predominantly inattentive type; E66.811 Obesity, class 1; K59.00 Constipation, unspecified; Z68.35 Body mass index [BMI] 35.0-35.9, adult

== ENCOUNTER → 2025-05-02 11:15 | Outpatient (BNVA) | payer OTHER, SELFPAY | PROVIDERS: PCP Physician Assistant; Visit Provider Physician Assistant | DX: Z13.31 Encounter for screening for depression (principal); Z13.39 Encounter for screening examination for other mental health and behavioral disorders | CPT/HCPCS: 96127 ==